=== PATIENT | male | born 1945 | race Caucasian/White ===

== ENCOUNTER → 2023-08-23 07:02 | Outpatient (REF) | payer MEDICARE, OTHER, SELFPAY | LOC: RAD 07:02 | PROVIDERS: ATTENDING PHYSICIAN Internal Medicine Critical Care Medicine; FAMILY PHYSICIAN Family Medicine | DX: Z87.891 Personal history of nicotine dependence (principal) | CPT/HCPCS: 71271 ==

== ENCOUNTER 2024-07-31 21:04 | Inpatient (IN) | payer MEDICARE, OTHER, SELFPAY ==
[2024-07-31] VITALS (8 sets, daily range): BP systolic 92–124; BP diastolic 44–102; BMI 27.5; BMI 26.5
[2024-07-31 17:05] LABS: % Basophils 0.2 % (0-2); % Eosinophils 0.9 % (0-6); % Immature Granulocytes 0.6 % (0-0.5); % Lymphocytes 8.4 % (20.5-51.1); % Monocytes 9.5 % (1.7-9.3); % Neutrophils 80.4 % (42.2-75.2); Absolute Eosinophils 0.1 10^3/uL (0-0.7); Absolute Immature Granulocytes 0.1 10^3/uL (0-0.05); Absolute Lymphocytes 1.1 10^3/uL (1.2-3.4); Absolute Monocytes 1.2 10^3/uL (0.1-0.6); Absolute Neutrophils 10.4 10^3/uL (1.4-6.5); Hematocrit 48.1 % (39.0-52.0); Hemoglobin 16.1 g/dL (13.0-18.0); Mean Corp Hgb Conc. 33.5 g/dL (33.0-37.0); Mean Corpuscular Volume 92.7 fL (80.0-94.0); Mean Platelet Volume 10.3 fL (7.4-10.4); Nucleated Red Blood Cells % 0 % (-); Platelet Count 169 10^3/uL (130-400); Red Blood Cell Count 5.19 10^6/uL (4.70-6.10); Red Cell Dist. Width 13.4 % (11.5-14.5); White Blood Cell Count 12.9 10^3/uL (4.8-10.8)
[2024-07-31 17:17] LABS: INR 1.05; PT 14.2 Sec (11.4-14.6)
[2024-07-31 17:18] LABS: APTT 28.3 Sec (23.4-35.0)
[2024-07-31] MEDS: HEPARIN 25000 UNITS/250 ML IV (17:29)
[2024-07-31] MEDS: HEPARIN 4000 UNITS IV (17:29)
[2024-07-31 18:08] LABS: ALT (SGPT) 21 U/L (0-50); AST (SGOT) 26 U/L (17-59); Albumin 3.8 g/dl (3.5-5.0); Alkaline Phosphatase 148 U/L (38-126); Blood Urea Nitrogen 21 mg/dl (9-20); Calcium 9.3 mg/dl (8.4-10.2); Carbon Dioxide 26 mmol/L (22-30); Chloride 103 mmol/L (98-107); Estimated Creatinine Clearance 81 ml/min; Glucose 156 mg/dl (70-99); Potassium 4.9 mmol/L (3.5-5.1); Sodium 136 mmol/L (135-145); Total Protein 6.7 g/dl (6.3-8.2); eGFR > 60.00
--- NOTE | 2024-07-31 19:16 | ED.GENMED ---
History of Present Illness
General
Chief Complaint: DVT/Possible Blood Clot
Time Seen by Provider: 07/31/24 16:43
History of Present Illness
History of Present Illness:
78-year-old male with history of aortic stenosis, sick sinus syndrome status post pacemaker, hypertension, and hyperlipidemia presents to the emergency department for evaluation of right lower extremity paresthesias and pain. He states 3 days ago
he had acute pain of the popliteal region, this was followed by paresthesias and pallor of the leg. He notes that yesterday he felt the leg was quite cold and his applied a heating pad however he could not feel the heat from the heating pad.
He does note mild aching discomfort when ambulating but no pain at rest. He has had some degree of claudication over the past 6 months. Currently he is at rest in the exam bed with no pain. He reports paresthesias to the right leg and foot from
the mid calf down
Past History
Past History
ED Past Medical History: COPD, NIDDM, SC and Other (PNA, Renal calculus, Anemia, )
ED Past Surgical History: Cardiac (Pacemaker/ Defib), Orthopedic (Right ankle screws and plate) and Other (Pilonidal cyst removal)
Social History
Tobacco: Former smoker
Alcohol: None
Personal:
Living: alone
Employment: Retired
Family History
Family History: CAD
Review of Systems
Review of Systems
Allergies reviewed?: Yes
All Other Systems: ROS reviewed and negative except as documented in HPI and ROS
Phy Exam
Physical Exam
Physical Exam:
GEN: Well appearing, NAD, WDWN
HEENT: Oral mucosa moist, no scleral icterus
Cardiac: Regular rate
Lung: No respiratory distress, no tachypnea
MSK: No gross deformity or injuries. No palpable pulses to the right or left posterior tibialis or dorsalis pedis. There is a faint monophasic dopplerable pulse to the right popliteal region. There is moderate pallor to the right leg but
sensation is intact grossly. Patient has normal range of motion of the right hip, right knee, and right ankle with normal strength to plantar and dorsiflexion
Skin: Good color, no pallor or jaundice, no rashes
Neuro: AO x3, moves all extremities freely
Psych: Calm, cooperative
Course
Orders/Labs/Results
Orders:
Orders
07/31/24 16:43
CT Abd Aorta Angio W/ Run Off Urgent
Comment:
Reason For Exam: R leg pain/paresthesia/pallor
07/31/24 16:57
Complete Blood Count/With Diff Urgent
Comprehensive Metabolic Panel Urgent
PTT Urgent
Prothrombin Time Urgent
07/31/24 17:02
Heparin 4,000 units IV NOW STA
Nursing to Place Non Medication Order As Directed
Physician Order: PTT 6 hours after initial start of Heparin infusion
Above order entered?: Yes
07/31/24 17:15
Heparin 63949 Units/250 ml 25,000 units in 250 ml IV PER PROTOCOL
Weight to be used for heparin protocol in kilograms (kg):: 99.8
Protocol:: Vascular Surgery
PTT Goal Range to be used:: PTT 73 to 111 seconds
Order type:: Initial
INITIAL Infusion Dose (UNITS/KG/hr) & then follow protocol:: 18 units/kg/hr
Infusion Dose in UNITS/hr & then follow protocol (UNITS/hr):: 1,800
INFUSION RATE in mL/hr & then follow protocol (mL/hr):: 18
PTT less than or equal to 64 seconds:: Notify Ordering Provider. obtain orders for rate increase &
possible bolus
PTT 64.1 to 72.9 seconds:: Increase rate by 100 units/hr (+ 1 mL/hr)
PTT 73 to 111 seconds:: Target Range. No change in rate.
PTT 111.1 to 130.9 seconds:: Decrease rate by 100 units/hr (- 1 mL/hr)
PTT 131 to 199.9 seconds:: HOLD for 1 hour. Then decrease rate by 200 units/hr (- 2 mL/hr)
PTT greater than or equal to 200 seconds:: STOP INFUSION. Notify Ordering provider to obtain further orders.
Lab follow-up:: Each change, PTT q6h until 2 consecutive are therapeutic. Then PTT
daily.
07/31/24 19:18
Electrocardiogram (*1) Urgent
Reason for Study: QTc Monitoring
EKG- Treatment ONCE
07/31/24 20:17
Piperacillin/Tazo 3.375 Gram [Zosyn] 3.375 gram in 50 ml IV NOW
07/31/24 20:20
Admit/Transfer Patient As Directed
Co-Sign Provider:
Level of Care: Inpatient admission
Assign to:: Telemetry
Physician / Group: Timothy Wilson
Diagnosis: thrombosed right popliteal artery aneurysm
Reason for Telemetry: Arrhythmia
Date to Stop Telemetry: 08/03/24
Time to Stop Telemetry: 11:00
Reason for Hospitalization: thrombosed right popliteal artery aneurysm
Expected length of stay greater than two midnights?: Yes
ELOS- Estimated Length of Stay in days: 3
I certify the patient meets the requirements for IP care: Yes
PRN Pain Medication Management As Directed
May give lesser potent ordered pain med per pt: Yes
preference::
Protocol:: Medication orders for pain may be administered in a
manner that supports deferring to patient preference
when the pt is:
- Requesting an ordered lesser potent pain medication.
Least to most potent pain medications are defined
as: acetaminophen < NSAID < tramadol < opioids
(morphine, oxycodone, hydromorphone).
- Requesting a lesser dose of the same medication IF
ORDERED.
- Requesting a less intrusive route of administration
if both routes are prescribed by the provider (PO <
IV).
07/31/24 20:24
Code Status As Directed
Resuscitation Status: Full Code
07/31/24 21:33
Acetaminophen [Tylenol] 650 mg PO Q4HPRN PRN
Albuterol [ProAIR HFA INHALER] 1 puff INH R Q4HPRN PRN
Dextrose 50%-Water [Dextrose 50% Syringe] 12.5 grams IV [id number] PRN
Glucagon [GlucaGen] 1 mg IM PRN PRN
07/31/24 21:33
Vascular Surgery Consult Routine
Consulting Provider: Shey Lacey
Was physician already notified: Yes
Activity As Directed
Activity Level: With Assistance
Bedside Glucose Monitoring As Directed
Frequency: AC&HS
Additional Instructions:: Change to q6h if pt on TPN, tube feeding or not eating
Vascular Checks As Directed
Location: RLE
Frequency: q1h
Vital Signs As Directed
Frequency: Per unit guidelines
Weight As Directed
Frequency: Daily
07/31/24 22:00
Lisinopril [Zestril] 2.5 mg PO HS
Piperacillin/Tazo 3.375 Gram [Zosyn] 3.375 gram in 50 ml IV Q6H
08/01/24 Breakfast
NPO
Allow oral meds: Yes
Allow clear liquids: No
Basic Metabolic Panel IN AM
Complete Blood Count/No Diff IN AM
Glycohemoglobin (HgbA1c) IN AM
08/01/24 07:30
Insulin Aspart Corrective Low [Novolog Flexpen-Low Resistance] See Protocol SC AC
08/01/24 08:00
Aspirin Low Dose EC [Aspir Low (Enteric Coated)] 81 mg PO DAILY
Atorvastatin [Lipitor] 40 mg PO DAILY
Metoprolol Xl [Toprol Xl] 12.5 mg PO BID
Multivitamin [Theragran] 1 tablet PO DAILY
Ranolazine Extended Release [Ranexa Extended Release] 500 mg PO BID
Spironolactone [Aldactone] 25 mg PO DAILY
ascorbic acid (vitamin C) [Vitamin C] 1,000 mg PO DAILY
08/01/24 20:20
Furosemide [Lasix] 20 mg PO MOWEFR
08/03/24 11:00
DC Protocol for Telemetry ONCE
Abnormal Lab Results
07/31/24
16:57
WBC 12.9 H 10^3/uL
(4.8-10.8)
Abs Immat Gran (auto) 0.1 H 10^3/uL
(0-0.05)
Absolute Neuts (auto) 10.4 H 10^3/uL
(1.4-6.5)
Absolute Lymphs (auto) 1.1 L 10^3/uL
(1.2-3.4)
Absolute Monos (auto) 1.2 H 10^3/uL
(0.1-0.6)
Immature Gran % 0.6 H %
(0-0.5)
Neutrophils % 80.4 H %
(42.2-75.2)
Lymphocytes % 8.4 L %
(20.5-51.1)
Monocytes % 9.5 H %
(1.7-9.3)
BUN 21 H mg/dl
(9-20)
Glucose 156 H mg/dl
(70-99)
Alkaline Phosphatase 148 H U/L
(38-126)
07/31/24 16:57
07/31/24 16:57
Vital Signs
Initial and Last Documented VS:
Initial Vital Signs
Temp Pulse Resp BP Pulse Ox
98.9 F 80 20 103/82 96
07/31/24 16:19 07/31/24 16:19 07/31/24 16:19 07/31/24 16:19 07/31/24 16:19
Last Documented Vital Signs
Temp Pulse Resp BP Pulse Ox
98.9 F 86 18 92/63 93
07/31/24 16:19 07/31/24 21:15 07/31/24 21:15 07/31/24 21:00 07/31/24 21:15
MDM/Problems Addressed
MDM/Problems Addressed:
Imaging reveals a right SFA occlusion, upon review with vascular surgery suspect an acutely thrombosed popliteal artery aneurysm. Patient was initiated on heparin on arrival to the ED, will be admitted for further management
*Critical Care Note
Total Time (30-74mins, 75-104mins- exclusive of procedures): Not Applicable
ED Attending Note
-
Portions of this chart may have been created with voice recognition software.� Occasional wrong word or��sound alike� substitutions may have occurred due to the inherent limitations of voice recognition software.
Discharge Plan
Departure
Patient Disposition: Admit
Date of Disposition: 07/31/24
Time of Disposition: 19:22
Admit to: Med/Surg
Presentation/result/management discussed w/ accepting MD/DO: Hospitalist
Discharge Problem:
Aneurysm of popliteal artery, Critical limb ischemia of right lower extremity
Interventions
Interventions:
*Risk Screen - Suicide Last Done: 07/31/24 16:19
*General Assessment Last Done: 07/31/24 16:54
*Neglect/Abuse Screening Last Done: 07/31/24 16:54
*ED- Fall Risk Assessment Last Done: 07/31/24 16:54
*ED COVID-19 Vaccine History Last Done: 07/31/24 16:54
*Nursing Disposition Last Done: 07/31/24 21:20
ED- Cardiac Assessment Last Done: 07/31/24 16:55
ED- Pulmonary Assessment Last Done: 07/31/24 16:55
ED-Peripheral Vascular Assessment Last Done: 07/31/24 16:55
ED-Skin Assessment Last Done: 07/31/24 16:55
Discharge Date and Time
Discharge Date/Time: 07/31/24 21:20
--- NOTE | 2024-07-31 19:23 | HPS.HSE ---
Addendum entered and electronically signed by Timothy Wilson DO 07/31/24 21:39:
Patient seen and examined independently. Agree with findings and plan as set forth by DIANA Cristobal.
Patient is a 78y M with PMH significant for hypertension, ASCVD and CHFrEF who presents to ED complaining of R calf pain and R foot 'coolness'. Patient states that his symptoms started with aq calf cramp while sleeping 2 evenings ago. He has
since noted discomfort in the R calf with walking / dorsiflexion and plantarflexion of the ankle. Yesterday he noted that his toes were cold and somewhat discolored. He placed a heating pad on the foot and noted that he could not appreciate the
warmth. He was seen today by his PCP for evaluation and was referred to the ED.
Ass:
RLE Limb Ischemia
Distal R SFA Occlusion
Right Popliteal Artery Aneurysm
Possible Acute Diverticulitis
ASCVD
Chronic HFrEF
Aortic Stenosis s/p TAVR
History of NSVT
DM-II
Plan:
Admit for further evaluation and treatment.
IV heparin overnight and follow for pain, changes in neurovascular exam, etc.
Continue usual CV medications including ASA, statin, etc.
Vascular Surgery evaluation for additional recommendations.
Note: Patient reports that there was difficulty with femoral access during his prior TAVR (09/2022) requiring upper extremity access instead.
Follow glucose and cover with SSI as needed.
Continue IV Zosyn for now given CT findings for diverticulitis. Patient does report tenderness with exam and has mild leukocytosis.
Follow for changes in symptoms, fever, etc.
Original Note:
Family Physician
-
Family Physician: Julio Owens
Chief Complaint
-
right lower extremity pain
History of Present Illness
Patient is a 78-year-old male with past medical history significant for essential hypertension, hyperlipidemia, CAD, HFrEF, NIDDM, PAD and Hx nonsustained ventricular tachycardia who presented to [facility] ED for evaluation of right lower
extremity pain. Patient reports that over the past two days he has had discomfort in the right lower extremity. Patient reports two nights ago he was woken with a 'cramp' to the right calf and since then he has noticed pain with ambulation and mild
discomfort when at rest. Yesterday he stated he noticed the toes were quite cold when compared to the left, his attempted to help warm them with heating pad but patient was unable to feel the warmth. Patient ultimately made an appointment with
primary care today and upon the assessment there was referred to the ED for evaluation. Patient denies any recent fevers, chills, shortness of breath, nausea, vomiting, constipation, diarrhea or urinary symptoms.
Medical History
Past Medical History
Past Medical History: Reports Other
Additional Past Medical History:
essential hypertension
hyperlipidemia
CAD
HFrEF
NIDDM
PAD
aortic stenosis
Hx nonsustained ventricular tachycardia
Past Surgical History: Reports Other
Additional Past Surgical History:
Right L3-4 ILESI 05/23/18
Ankle 1986
Skin CA removed from L side of Face 2017
L Upper Chest PPM/AICD for IVCD
b/l cataracts removed
Social History
Tobacco: Smoker (patient smokes 2 packs a day for 60years and now smoking 0.25 pack per day)
Alcohol: None
Drug: None
Employment: Retired
Family History
Family History: Other (Father: PAD; Mother: CVA; Brothers: CAD)
Allergies / Home Medications
Allergies reflects when Allergies were last updated in [employer].
Home Medications with original date entered in [employer]
Allergy/Medication List:
Allergies
Allergy/AdvReac Type Severity Reaction Status Date / Time
No Known Drug Allergies Allergy NKDA Verified 07/31/24 16:19
Home Medications
aspirin 81 mg tablet,delayed release 81 mg PO DAILY Blood clot prevention/tx 09/23/21
ranolazine 500 mg tablet,extended release,12 hr 500 mg PO BID Arrhythmia #120 tabs 09/23/21
ascorbic acid (vitamin C) 1,000 mg tablet (Vitamin C) 1,000 mg PO DAILY Supplement 08/15/22
furosemide 20 mg tablet 20 mg PO MOWEFR Fluid retention/Swelling 08/15/22
spironolactone 25 mg tablet 25 mg PO DAILY Fluid retention/Swelling 08/15/22
albuterol sulfate 90 mcg/actuation aerosol inhaler 1 puff inhalation R Q4HPRN PRN shortness of breath or wheezing 07/31/24
atorvastatin 40 mg tablet 40 mg PO DAILY High cholesterol 07/31/24
empagliflozin 25 mg tablet (Jardiance) 25 mg PO DAILY 07/31/24
lisinopril 2.5 mg tablet 2.5 mg PO HS 07/31/24
metoprolol succinate 25 mg tablet,extended release 24 hr 12.5 mg PO BID 07/31/24
therapeutic multivitamin 1 tab PO DAILY 07/31/24
Review of Systems
-
History Source: Patient
Constitutional: Reports No Symptoms
EENT: Reports No Symptoms
Respiratory: Reports No Symptoms
Cardiac: Reports No Symptoms
Abdomen/GI: Reports No Symptoms
: Reports No Symptoms
Musculoskeletal: Reports Other (RLE pain with ambulation, cool to touch, discoloration )
Skin: Reports No Symptoms
Neurological: Reports No Symptoms
Endocrine: Reports No Symptoms
Hematologic/Lymphatic: Reports No Symptoms
Psych: Reports No Symptoms
Physical Exam
Vital Signs
Vital Signs
Temp Pulse Resp BP Pulse Ox
98.9 F 82 16 124/102 96
07/31/24 16:19 07/31/24 16:45 07/31/24 16:45 07/31/24 16:44 07/31/24 16:55
Physical Exam
General: Well Developed, Well Nourished, No Apparent Distress, Comfortable and Conversant
HEENT: NormoCephalic, Moist mucous membranes, Atraumatic, [place] Conjunctivae, Nose Appears Normal and Ears Appear Normal
Respiratory: Clear and Non Labored Respirations
Cardiac: S1/S2 and Regular Rhythm; No Murmur, Rub or Gallop
Breast: Deferred by me
GI: Soft, Non Tender, Non Distended and Normal Bowel Sounds; No Organomegaly
Rectal: Deferred by Provider
Genito-urinary: Deferred by me
Musculoskeletal: No Clubbing, No Cyanosis and No Edema
Skin: Other (RLE cyanosis and cool to touch, pedal pulse non-palpable found on doppler by ED staff ); No Rash
Neuro: Awake, Alert, AO x 3 and Nonfocal/grossly intact
Psych: Calm and Intact Judgment/Insight
Laboratory Results
-
07/31/24 16:57
07/31/24 16:57
Laboratory Results
PT 14.2 Sec (11.4-14.6) 07/31/24 16:57
INR 1.05 07/31/24 16:57
APTT 28.3 Sec (23.4-35.0) 07/31/24 16:57
Total Bilirubin 1.0 mg/dl (0.2-1.3) 07/31/24 16:57
AST 26 U/L (17-59) 07/31/24 16:57
ALT 21 U/L (0-50) 07/31/24 16:57
Alkaline Phosphatase 148 U/L (38-126) H 07/31/24 16:57
Data Reviewed
-
CT Scan: Report Reviewed by me (Abd CT: There is significant diffuse atherosclerotic disease with calcification. There is occlusion of the distal right SFA. On delayed images, minimal contrast opacification within the lumen of the right popliteal
artery. There does appear to be three-vessel runoff within the right calf, somewhat )
Lab Data: Labs Reviewed by me
Impression/Plan
-
IMPRESSION/PLAN:
#thrombosed right popliteal artery aneurysm
#PAD
ABD CT: There is significant diffuse atherosclerotic disease with calcification.
There is occlusion of the distal right SFA. On delayed images, minimal contrast opacification within the lumen of the right popliteal artery. There does appear to be three-vessel runoff within the right calf, somewhat
limited evaluation because of severe calcification.
No evidence for occlusion of the left arterial circulation.
Aneurysm of the right popliteal artery. Aneurysm of the left distal SFA.
In the right pelvis, CT findings highly suggestive of diverticulitis involving the sigmoid colon. No evidence of abscess or free intraperitoneal air.
- admit to telemetry
- Consult Vascular
- Heparin gtt
#diverticulitis
- IV Zosyn
#essential hypertension
- continue furosemide, lisinopril, metoprolol and spironolactone
#hyperlipidemia
#CAD
- continue aspirin and atorvastatin
#HFrEF
ECHO (10/31/2022): Moderately reduced left ventricular systolic function.
Estimated left ventricular ejection fraction is 30-35% .
Normal right ventricular size and function.ICD wire seen in right ventricle. 29 mm Nataly 3 TAVR. Trace AI; Mean gradient 8mmHg.
Ascending aorta not well visualized.
Compared to the previous echo 09/29/22 prior TAVR mean gradient was 10mmHg;
Overall, there is no significant change.
- daily weights
- continue furosemide and spironolactone
#NIDDM
- hold Jardiance
- AccuCheck AC & HS
- SSI
- check A1C
#Hx nonsustained ventricular tachycardia
s/p AICD
Code status: full code
DVT prophylaxis: heparin gtt
[2024-07-31] MEDS: ZOSYN 50 IV (20:22)
[2024-07-31 22:08] LABS: Glucose - Point of Care 251 mg/dl (70-99)
--- NOTE | 2024-07-31 22:23 | PTCARENOTE ---
Pt arrived onto floor @2223. Pt AAOx3 and able to ambulate into room with minimal assistance. Pt with no complaints of pain or SOB at this time. Pt oriented to room and call russ; will continue to monitor
[2024-07-31] MEDS: ZESTRIL PO (22:43)
[2024-08-01] VITALS (11 sets, daily range): BP systolic 98–115; BP diastolic 51–70; BMI 26.5
[2024-08-01] MEDS: ZOSYN 50 IV ×4 (01:46→19:54)
[2024-08-01 05:20] LABS: Glucose - Point of Care 126 mg/dl (70-99)
[2024-08-01 07:07] LABS: Hematocrit 42.8 % (39.0-52.0); Hemoglobin 14.7 g/dL (13.0-18.0); Mean Corp Hgb Conc. 34.3 g/dL (33.0-37.0); Mean Corpuscular Hgb 31.5 pg (27.0-31.0); Mean Corpuscular Volume 91.6 fL (80.0-94.0); Mean Platelet Volume 11.1 fL (7.4-10.4); Platelet Count 144 10^3/uL (130-400); Red Blood Cell Count 4.67 10^6/uL (4.70-6.10); Red Cell Dist. Width 13.2 % (11.5-14.5); White Blood Cell Count 8.2 10^3/uL (4.8-10.8)
[2024-08-01 07:43] LABS: APTT 174.7 Sec (23.4-35.0)
[2024-08-01 08:16] LABS: Glucose - Point of Care 140 mg/dl (70-99)
[2024-08-01] MEDS: RANEXA EXTENDED RELEASE 500 MG PO ×2 (08:38→19:57)
[2024-08-01] MEDS: TOPROL XL 12.5 MG PO ×2 (08:39→19:54)
[2024-08-01] MEDS: ASPIR LOW (ENTERIC COATED) 81 MG PO (08:40)
[2024-08-01] MEDS: LIPITOR 40 MG PO (08:40)
[2024-08-01] MEDS: VITAMIN C 1000 MG PO (08:41)
[2024-08-01] MEDS: THERAGRAN 1 TABLET PO (08:41)
[2024-08-01] MEDS: ALDACTONE 25 MG PO (08:41)
[2024-08-01] MEDS: HEPARIN 25000 UNITS/250 ML IV (09:00)
[2024-08-01 10:06] LABS: Blood Urea Nitrogen 18 mg/dl (9-20); Calcium 8.8 mg/dl (8.4-10.2); Carbon Dioxide 24 mmol/L (22-30); Chloride 105 mmol/L (98-107); Estimated Creatinine Clearance 91 ml/min; Glucose 146 mg/dl (70-99); Potassium 4.6 mmol/L (3.5-5.1); Sodium 135 mmol/L (135-145); eGFR > 60.00
[2024-08-01 10:09] LABS: Glycohemoglobin (HgbA1c) 7.4 % (4.0-5.6)
--- NOTE | 2024-08-01 11:46 | W.PN.HOSP.TC ---
Today's Communication/Plan
-
Await vascular surgery input
Assessment / Plan
Assessment / Plan
Gen-AAOx3, NAD
HEENT-NC, AT, anicteric, clear oral mm
Neck-supple
CV-reg, no M, +S1/S2
Lungs-clear B/L
Abd-soft, NT, ND
Ext-no edema
Musculoskeletal-no cyanosis, clubbing
Skin-warm and dry, cold right foot with diminished pulses
Neuro-grossly non-focal
Psych-calm, cooperative
Acute right lower extremity ischemia -due to distal right SFA occlusion noted on CTA. Associated right popliteal artery aneurysm, aneurysm of the left distal SFA. N.p.o., awaiting vascular surgery input. Continue IV heparin.
Acute sigmoid diverticulitis -did not come into the hospital complaining of abdominal pain but does have tenderness to palpation and CT findings noted. Continue IV antibiotics.
Chronic heart failure reduced EF�stable.
Aortic stenosis -status post TAVR.
Tobacco dependence -highly recommend abstinence. Discussed with patient and .
History of NSVT
DM2 without hyperglycemia -hemoglobin A1c 7.4%. Uses Jardiance at home. Currently on insulin sliding scale.
COPD without exacerbation
CAD
Hyperlipidemia -Lipitor.
Full code
Updated at the bedside.
Anticipated Discharge: > 48 hours
Subjective/Interval History
-
Date of Service: August 01, 2024
Patient seen and examined. No rest pain in the right foot but does get pain with ambulation.
Objective Data
-
Labs:
Laboratory Results
07/31/24 08/01/24 08/01/24
23:58 00:15 06:55
WBC 8.2
Hgb 14.7
Hct 42.8
Plt Count 144
APTT Cancelled 103.0 H 174.7 H*
Sodium Cancelled
Potassium Cancelled
Chloride Cancelled
Carbon Dioxide Cancelled
BUN Cancelled
Creatinine Cancelled
Glucose Cancelled
Calcium Cancelled
08/01/24 08/01/24
08:06 14:45
WBC
Hgb
Hct
Plt Count
APTT Pending
Sodium 135
Potassium 4.6
Chloride 105
Carbon Dioxide 24
BUN 18
Creatinine 0.8
Glucose 146 H
Calcium 8.8
Vital Signs:
Vital Signs
Temp Pulse Resp BP Pulse Ox
98.0 F 79 20 107/64 100
08/01/24 08:25 08/01/24 08:25 08/01/24 08:25 08/01/24 08:25 08/01/24 08:25
I&O
07/31/24 08/01/24 08/02/24
06:59 06:59 06:59
Intake Total 0 / 0
Balance 0 / 0
Review of Systems
-
History Source: Patient
All other systems: Reviewed and negative
[2024-08-01 12:16] LABS: Glucose - Point of Care 124 mg/dl (70-99)
--- NOTE | 2024-08-01 12:59 | CON.VAS ---
Addendum entered and electronically signed by Phong Ovalle III, MD 08/01/24 18:25:
Late entry
This patient was seen and examined in collaboration with DIANA Ng. I agree with the history and physical exam as well as the assessment and plan. I have the following additions:
Symptom onset to the right leg and foot on sunday
No pain currently
Gross neuro motor function to the right foot and toes intact
Calf compartment soft throughout
No Doppler signals in the right foot
Vascular lab imaging reviewed personally
CT angiogram imaging reviewed personally
He has a thrombosed popliteal artery aneurysm
On CTA there is faint reconstitution of the peroneal artery and I cannot visualize the posterior tibial artery or anterior tibial artery
My recommendation is for arteriogram today of the right lower extremity with possible initiation of thrombolysis
Ultimately he will require a lower extremity bypass for revascularization
The technical aspects of the arteriogram and possible thrombolysis were discussed with the patient and his (bedside) in detail. The benefits and rationale for this approach were discussed with both of them in detail. Operative risks were
discussed with them in detail including but not limited to bleeding, , intracranial bleeding, arterial access site injury, infection, contrast nephropathy, distal embolization and limb loss. He also understands the need for additional
procedures.
He reports no recent surgery
Denies a history of stroke
Denies GI bleeding upper or lower
Denies easy bleeding or bruising
Denies recent trauma and/or falls
Signed:
Phong Ovalle III, MD
[facility]
[phone] (ccoh)
Original Note:
Consultation
Consultation Request
Date/Time Consultation Performed: 08/01/2024
Requesting Provider: Hospitalist
Performing Provider: Brinda Daniels, FILM LIBRARY CLERK-C for Phong Ovalle III, MD
Reason for Consultation: Right popliteal artery aneurysm occlusion
Medical History
-
Chief Complaint: Right lower extremity pain and coolness
History of Present Illness:
This is a 70-year-old male with known past medical history of CAD, diabetes, Hyperlipidemia, HFrEF, peripheral arterial disease, aortic stenosis status post TAVR, and nonsustained V. tach who presented to [facility] on 07/31/24 with reports
of acute onset of right lower extremity calf and foot pain on that has progressively worsened since onset. Patient denies past medical history of claudication or rest pain. He states prior to Sunday he was able to walk any distance without pain
to bilateral lower extremities. He notes since onset of right lower extremity calf pain, right foot pain and digit discoloration has progressed and he only finds relief with manipulation or foot pumping of his calf. Denies prior history of seeing
a vascular surgeon or vascular interventions. Patient has no other complaints and denies fever, chills, shortness of breath, nausea, vomiting, and diarrhea. He does endorse that he was told in the past that he has peripheral arterial disease
because they were unable to use his legs as an access site for his TAVR procedure.
Past Medical History
Past Medical History: CAD, NIDDM and Other (Hyperlipidemia, HFrEF, peripheral arterial disease, aortic stenosis status post TAVR, nonsustained V. tach)
Past Surgical History: Cardiac (L Upper Chest PPM/AICD for IVCD, TAVR) and Other (Right L3-4 ILESI, Skin CA removed from L side of Face, bilateral cataracts)
Social History
Tobacco: Smoker (patient smokes 2 packs a day for 60years and now smoking 0.25 pack per day)
Alcohol: None
Drug: None
Employment: Retired
Family History
Family History: Other (Father: PAD; Mother: CVA; Brothers: CAD)
Allergies / Home Medications
Allergy/AdvReac Type Severity Reaction Status Date / Time
No Known Drug Allergies Allergy NKDA Verified 07/31/24 16:19
�Medication �Instructions �Recorded �Confirmed �Type
aspirin 81 mg tablet,delayed 81 mg PO DAILY Blood clot 09/23/21 07/31/24 Rx
release prevention/tx
ranolazine 500 mg tablet,extended 500 mg PO BID Arrhythmia #120 tabs 09/23/21 07/31/24 Rx
release,12 hr
ascorbic acid (vitamin C) 1,000 mg 1,000 mg PO DAILY Supplement 08/15/22 07/31/24 History
tablet (Vitamin C)
furosemide 20 mg tablet 20 mg PO MOWEFR Fluid 08/15/22 07/31/24 History
retention/Swelling
spironolactone 25 mg tablet 25 mg PO DAILY Fluid 08/15/22 07/31/24 History
retention/Swelling
albuterol sulfate 90 mcg/actuation 1 puff inhalation R Q4HPRN PRN 07/31/24 07/31/24 History
aerosol inhaler shortness of breath or wheezing
atorvastatin 40 mg tablet 40 mg PO DAILY High cholesterol 07/31/24 07/31/24 History
empagliflozin 25 mg tablet 25 mg PO DAILY 07/31/24 07/31/24 History
(Jardiance)
lisinopril 2.5 mg tablet 2.5 mg PO HS 07/31/24 07/31/24 History
metoprolol succinate 25 mg 12.5 mg PO BID 07/31/24 07/31/24 History
tablet,extended release 24 hr
therapeutic multivitamin 1 tab PO DAILY 07/31/24 07/31/24 History
Review of Systems
-
History Source: Patient
Constitutional: Reports No Symptoms
EENT: Reports No Symptoms
Respiratory: Reports No Symptoms
Cardiac: Reports No Symptoms
Vascular: Denies Leg Pain / Claudication (Has prior history of claudication)
Abdomen/GI: Reports No Symptoms
: Reports No Symptoms
Musculoskeletal: Reports Other (Right lower extremity pain initially with ambulation, but since onset increasing to include rest, left foot cool to touch, left digits with paleness)
Skin: Reports Other (Left foot with paleness)
Neurological: Reports No Symptoms
Endocrine: Reports No Symptoms
Physical Exam
Vital Signs
Temp Pulse Resp BP Pulse Ox
97.7 F 74 18 100/65 95
08/01/24 11:42 08/01/24 11:42 08/01/24 11:42 08/01/24 11:42 08/01/24 11:42
Lab Results
08/01/24 06:55
08/01/24 08:06
Physical Exam
General: No Apparent Distress
HEENT: Normocephalic, Anicteric and Atraumatic
Respiratory: Non Labored Respirations
Cardiac: Negative JVD
GI: Soft, Non Tender and Non Distended
Musculoskeletal: No Edema
Skin: Other (Right lower extremity cool, digits with cap refill at 5 seconds, has full motor function and sensation, unable to get Doppler signal of DP or PT at right foot)
Neuro: AO x 3
Pulses: Bilateral Femoral: +2
Assessment / Plan
-
Assessment: 78-year-old male with right lower extremity SFA occlusion and right popliteal artery aneurysm occlusion, and CT angio evidence of chronic peripheral arterial disease leading to acute VS. chronic right lower extremity limb ischemia
Plan:
Urgent right lower extremity angiogram today with possible placement of lysis catheter, will likely need will right lower extremity arterial bypass early next week, will have definitive surgical plan following results of angiogram.
Continue heparin infusion for anticoagulation
N.p.o.
[2024-08-01 15:20] LABS: APTT 83.6 Sec (23.4-35.0)
--- NOTE | 2024-08-01 15:49 | CM ---
Patient off the floor at label rewinder. Initial assessment completed. Admitted for right lower extremity pain. Patient is a 78-year-old male with past medical history significant for essential hypertension, hyperlipidemia, CAD, HFrEF, NIDDM, PAD and Hx
nonsustained ventricular tachycardia.
CM spoke to patient's significant other, Sandra, who stated patient has been staying at her home recently because she has a single story home set up- 1 step to enter. Patient's primary home is a split level home- 5 steps to enter. Patient is
independent w/ ambulating and ADLs, no DME required. Sandra's home has a tub grab bar and shower chair. Patient has no SNF/VN/PT hx/ Patient engaged in cardiac rehab at in the past.
Address, point of contact and insurance verified
PCP: Lamar Cancino. Patient's prev PCP has retired
Pharmacy: [facility]- [place]
Plan: Anticipate home; no needs
CM will cont to follow for d/c planning
--- NOTE | 2024-08-01 17:00 | W.SUR.PREOP ---
Pre-Operative Surgical Note
-
I have examined this patient prior to the performance of the scheduled procedure.
The patient's condition is unchanged from the time of the current History and
Physical and the patient is able to undergo the scheduled procedure.
[2024-08-01 17:33] LABS: ACT-LR - POC 161 Seconds (116-155)
--- NOTE | 2024-08-01 18:21 | OR.RPT ---
Operative Report
Operative Report
Date of Operation: 08/01/2024
Pre Op Diagnosis:
1. Acute limb ischemia, right lower extremity
2. Thrombosed right popliteal artery aneurysm
Post Op Diagnosis:
1. Acute limb ischemia, right lower extremity
2. Thrombosed right popliteal artery aneurysm
Procedure:
1.) Selective catheterization of third order lower extremity artery
2.) Initiation of arterial thrombolysis (5 [place] by 40 cm [place] Brayden lysis catheter)
3.) Diagnostic aortobiiliac arteriogram
4.) Diagnostic right lower extremity arteriogram
5.) Ultrasound-guided percutaneous access to the left common femoral artery
Surgeon: Phong Ovalle III, MD
Anesthesia: Sedation with local
Fluoroscopy:
24.1 min
254 mGy
66.67 Gy.cm2
Complications: None
Estimated Blood Loss: 20 cc
History and Indications for Procedure: 78-year-old male with acute limb ischemia and imaging demonstrating a thrombosed right popliteal artery aneurysm
Procedure in Detail: Guzman Law was correctly identified and placed supine on the operating table. After adequate induction of anesthesia the bilateral groins were prepped and draped in the usual sterile fashion. A timeout was performed with the
nursing and anesthesia staff confirming the patient's identity as well as the nature and laterality of the procedure.
The left common femoral artery was identified under ultrasound guidance. The artery was patent. The superior and inferior aspects of the femoral head were identified with radiographic guidance and marked at the skin level. The proposed puncture site
was infiltrated with local anesthesia. Under ultrasound guidance we accessed the left common femoral artery with a micropuncture needle and upsized to a 5 Fr sheath over a Bentson wire. The wire and a [employer] hook flush catheter were advanced into
the distal abdominal aorta and a diagnostic aorto-biiliac arteriogram was performed:
AORTO-ILIAC ARTERIOGRAM:
Aorta: Heavily calcified but patent with no significant stenosis identified
Right common iliac artery: Heavily calcified but patent with no significant stenosis identified
Right external iliac artery: Heavily calcified but patent with no significant stenosis identified
Left common iliac artery: Heavily calcified but patent with no significant stenosis identified
Left external iliac artery: Heavily calcified but patent with no significant stenosis identified
Under roadmap guidance using a Glidewire and the SimulScribe hook catheter we selected the right common iliac artery and then the external iliac artery. A catheter was tracked up and over the aortic bifurcation and placed in the distal external iliac
artery. A diagnostic right lower extremity arteriogram was then performed which demonstrated the following:
RIGHT LOWER EXTREMITY:
Common femoral artery: Calcified. Patent. No significant stenosis identified
Profunda femoral artery: Diffusely calcified but patent
Superficial femoral artery: Diffusely calcified. Patent.
Popliteal artery: Occluded above the knee no distal reconstitution identified
Anterior tibial artery: Occluded
Tibioperoneal trunk: Reconstituted via collaterals.
Peroneal artery: Reconstituted via collaterals
Posterior tibial artery: Occluded
Could not clearly see any flow into the foot on the initial arteriogram
ENDOVASCULAR INTERVENTION: Systemic heparin was administered. Exchanged out for a 6 Fr 45 cm sheath over a [employer] wire. Selected the superficial femoral artery under roadmap guidance with 0.035 SPEX catheter and glidewire. The popliteal artery
occlusion was crossed easily, consistent with an acute thrombosis, with the SPEX catheter and Glidewire. The wire and catheter were advanced into the tibioperoneal trunk and subtraction angio confirmed proper position in the true lumen. An
additional arteriogram demonstrated a patent peroneal artery to the ankle. Anterior peroneal artery collaterals then reconstituted the distal anterior tibial artery which continued across the ankle to form the dorsalis pedis artery. Posterior
collaterals coursed to the heel but there was no reconstitution of the posterior tibial artery.
Over the Glidewire I advanced a 5 [place] 40 cm RideApart lysis catheter. The radiopaque markers were positioned in the desired location proximally and distally. 10 mg of tPA was bolused through the catheter. After 10 minutes a contrast
injection was performed which demonstrated some early initial improvement and that the catheter was in the desired location. The catheter was secured in place. The tPA infusion was initiated through the catheter at 1 mg an hour. Heparin drip was
connected to the sideport at 500 units an hour. The catheter was secured in place at the sheath exit site. The catheter and sideport were clearly and individually labeled. The sheath was secured in place at the skin exit site with adhesive
dressings.
Satisfied with this result we concluded the procedure.
The patient tolerated the procedure well and was taken to the recovery area in stable condition.
Attestation: I was present and responsible for the entire procedure.
Signed:
Phong Ovalle III, MD
[facility]
[phone] (jjxr)
--- NOTE | 2024-08-01 18:43 | PTCARENOTE ---
Pt arrived laying flat via bed with OR staff, monitored, with simple mask and left femoral 6fr arterial sheath transduced. Pt is awake and alert. Bed sdie report taken. On handoff verified left femoral 'blue' arterial sheath with Alteplase @1mg/hr
with 0.9nss piggybacked @ 46ml/hr, and Non-titratable Heparin drip @500units/hr via 'clear' arterial sheath. Site with scant bloody drainage at insertion site. Tegaderm dressing intact. No right DP/PT pulses, +DP/PT pulses on the left foot. Right
foot cold, mottled, poor capillary refill. Ovalle catheter with laurence urine in collection bag. Pt was informed of the importance of keeping his legs still, head on the pillow, not shifting his hips and our inability to to tilt the bed or raise his
head up. He stated 'well you better tie me down then'. He was reassured the the night nurse would make sure he was following orders, and keep him comfortable. He is also aware that early tomorrow morning he would be take back to evaluate his clot.
He verbalized his understanding. Safe environment maintained.
[2024-08-01 18:44] LABS: Glucose - Point of Care 105 mg/dl (70-99)
[2024-08-01] MEDS: NSS 1000 INF CATH (18:45)
[2024-08-01] MEDS: HEPARIN 25000 UNITS/250 ML ART SHEATH (18:46)
[2024-08-01] MEDS: CATHFLO/ACTIVASE 16 ML INF CATH ×2 (18:48→22:07)
[2024-08-01] MEDS: CATHFLO/ACTIVASE 16 MG INF CATH ×2 (18:48→22:07)
[2024-08-01] MEDS: NSS 1000 IV ×2 (19:00→19:48)
[2024-08-01] MEDS: DILAUDID 0.5 MG IV (19:53)
[2024-08-01] MEDS: ZESTRIL 2.5 MG PO (19:54)
--- NOTE | 2024-08-01 20:00 | PTCARENOTE ---
rec`d pt at 1900. pulses done with previous shift RN. rt foot does not have any pulses. rt foot is cold and mottled. pt can move rt foot toes. left foot has +pulses via doppler. left femoral 6fr arterial sheath transduced. handoff verified left
femoral 'blue' arterial sheath with Alteplase @1mg/hr with 0.9nss piggybacked @ 46ml/hr, and Non-titratable Heparin drip @500units/hr via 'clear' arterial sheath. small amount of bloody drainage at puncture site. bedrest and pt educated on laying
flat and keeping legs straight and still. 2L NC since pt dipped to mid 80s as he fell asleep. pain covered by prn meds. pt AAOx3. PIVS flushed and patent. call russ in reach, safe environment maintained. cummings draining laurence urine.
[2024-08-01 21:19] LABS: Hematocrit 41.5 % (39.0-52.0); Hemoglobin 13.9 g/dL (13.0-18.0); Platelet Count 144 10^3/uL (130-400)
[2024-08-01 21:29] LABS: INR 1.31; PT 16.5 Sec (11.4-14.6)
[2024-08-01 21:30] LABS: Fibrinogen 395 MG/DL (199-459)
[2024-08-01 21:43] LABS: APTT > 200 Sec (23.4-35.0)
[2024-08-01 21:45] LABS: APTT > 200 Sec (23.4-35.0)
[2024-08-01] MEDS: ROXICODONE 5 MG PO (22:11)
[2024-08-01 23:05] LABS: Glucose - Point of Care 107 mg/dl (70-99)
[2024-08-01] MEDS: NOVOLOG FLEXPEN-LOW RESISTANCE SC (23:31)
[2024-08-02] VITALS (36 sets, daily range): BP systolic 76–130; BP diastolic 37–89; BMI 26.7
[2024-08-02] MEDS: DILAUDID 0.5 MG IV ×2 (00:07→04:22)
[2024-08-02] MEDS: TYLENOL 650 MG PO (00:57)
[2024-08-02] MEDS: CATHFLO/ACTIVASE 16 MG INF CATH ×2 (01:39→05:15)
[2024-08-02] MEDS: CATHFLO/ACTIVASE 16 ML INF CATH ×2 (01:39→05:15)
--- NOTE | 2024-08-02 01:51 | PTCARENOTE ---
pt has intermittent pain in rt lower back calf. 'burning sensation'. pt can still move toes. no pulses in the right foot.
[2024-08-02] MEDS: ZOSYN 50 IV ×4 (03:22→21:12)
[2024-08-02 03:37] LABS: Hematocrit 41.4 % (39.0-52.0); Hemoglobin 13.5 g/dL (13.0-18.0); Mean Corp Hgb Conc. 32.6 g/dL (33.0-37.0); Mean Corpuscular Hgb 30.6 pg (27.0-31.0); Mean Corpuscular Volume 93.9 fL (80.0-94.0); Mean Platelet Volume 10.5 fL (7.4-10.4); Platelet Count 138 10^3/uL (130-400); Red Blood Cell Count 4.41 10^6/uL (4.70-6.10); Red Cell Dist. Width 13.2 % (11.5-14.5); White Blood Cell Count 7.4 10^3/uL (4.8-10.8)
[2024-08-02 03:39] LABS: INR 1.21; PT 15.6 Sec (11.4-14.6)
[2024-08-02 03:40] LABS: APTT 38.4 Sec (23.4-35.0); Fibrinogen 413 MG/DL (199-459)
[2024-08-02] MEDS: NSS 250 IV (03:41)
[2024-08-02 03:49] LABS: ALT (SGPT) 17 U/L (0-50); AST (SGOT) 24 U/L (17-59); Alkaline Phosphatase 100 U/L (38-126); Blood Urea Nitrogen 16 mg/dl (9-20); Calcium 8.4 mg/dl (8.4-10.2); Carbon Dioxide 22 mmol/L (22-30); Chloride 105 mmol/L (98-107); Direct Bilirubin 0.2 mg/dl (0.0-0.4); Estimated Creatinine Clearance 104 ml/min; Glucose 114 mg/dl (70-99); Potassium 4.4 mmol/L (3.5-5.1); Sodium 134 mmol/L (135-145); Total Bilirubin 1.2 mg/dl (0.2-1.3); Total Protein 5.4 g/dl (6.3-8.2); eGFR > 60.00
[2024-08-02] MEDS: NOVOLOG FLEXPEN-LOW RESISTANCE SC ×2 (05:57→12:49)
--- NOTE | 2024-08-02 05:57 | PTCARENOTE ---
still no pulses in rt foot. pt can still move his toes on his right foot. pain comes and goes. bedrest and legs are straight.
[2024-08-02 06:08] LABS: Glucose - Point of Care 105 mg/dl (70-99)
--- NOTE | 2024-08-02 07:55 | W.PN.UPDATE ---
Update Note
Progress Note Update
Seen and evaluated pre-procedurally. Patient notes increased pain in right foot. Notes some weakness of the foot as well. Notes it has felt this way since waking from anesthesia (i wasn't informed of any changes overnight).
On exam he is not in any acute distress. His L groin puncture site is flat, mild blood staining. Abd soft. R calf soft, but tender. R foot slightly cool, cyanotic. Cap refill present but slowed. Motor function present, but weak intrinsic foot
muscle function and slightly at ankle. No audible doppler signals.
Plan - urgent return to OR now. Lysis check to assess outflow vessels. Discussed with patient strong possibility for need for urgent bypass at that time IF outflow vessel is reasonable (may require open thrombectomy as well). Discussed procedure,
discussed possible fasciotomies if successful. Discussed risks including but not limited to bleeding/infection/arterial injury/worsened ischemia/limb loss despite all measures. He understands all and wishes to proceed.
--- NOTE | 2024-08-02 08:00 | PTCARENOTE ---
pt taken to procedural area by OR staff. Continues to have no pulse signals with loss off sensation. Drips unchanged. Will hold PO meds as ordered. Zosyn infusing.
--- NOTE | 2024-08-02 09:10 | CON.INTV ---
Consultation
Consultation Request
Date/Time Consultation Requested: 08/01/2024
Date/Time Consultation Performed: 08/02/2024
Requesting Provider: Zen Romo
Performing Provider: Gayla Sosa
Reason for Consultation: Limb oschemia
Medical History
-
Chief Complaint: Limb pain
History of Present Illness:
Very pleasant 70-year-old gentleman with history of hypertension, hyperlipidemia, coronary artery disease, diabetes, severe peripheral vascular disease and nonsustained ventricular tachycardia who presented to the ED for concern of right lower
extremity pain. Patient reportedly noted decreased warmth, cramping in the right calf area and also has some pain at rest. He noted that his extremity was quite cold to touch and heating pad was applied but patient was not able to feel the warmth
of the same. Patient ultimately saw his primary care provider who referred him to emergency room for further evaluation.
Further Workup showed a thrombosed popliteal artery aneurysm. Patient was subsequently taken to the OR and had catheterization of third order lower extremity artery and initiation of intra-arterial thrombolysis. This morning patient was
reevaluated by vascular surgery and noted to have somewhat slowed capillary refill with plan for urgent return to the OR for further intervention.
Past Medical History
Past Medical History: Reports Other
Additional Past Medical History:
essential hypertension
hyperlipidemia
CAD
HFrEF
NIDDM
PAD
aortic stenosis
Hx nonsustained ventricular tachycardia
Past Surgical History: Reports Other
Additional Past Surgical History:
Right L3-4 ILESI 05/23/18
Ankle 1986
Skin CA removed from L side of Face 2017
L Upper Chest PPM/AICD for IVCD
b/l cataracts removed
Social History
Tobacco: Smoker (patient smokes 2 packs a day for 60years and now smoking 0.25 pack per day)
Alcohol: None
Drug: None
Employment: Retired
Family History
Family History: Other (Father: PAD; Mother: CVA; Brothers: CAD)
Allergies / Home Medications
Allergies
Allergy/AdvReac Type Severity Reaction Status Date / Time
No Known Drug Allergies Allergy NKDA Verified 07/31/24 16:19
Home Medications
�Medication �Instructions �Recorded �Confirmed �Last Taken �Type
aspirin 81 mg tablet,delayed 81 mg PO DAILY Blood clot 09/23/21 07/31/24 07/31/24 Rx
release prevention/tx
ranolazine 500 mg tablet,extended 500 mg PO BID Arrhythmia #120 tabs 09/23/21 07/31/24 07/31/24 Rx
release,12 hr
ascorbic acid (vitamin C) 1,000 mg 1,000 mg PO DAILY Supplement 08/15/22 07/31/24 07/31/24 History
tablet (Vitamin C)
furosemide 20 mg tablet 20 mg PO MOWEFR Fluid 08/15/22 07/31/24 07/30/24 History
retention/Swelling
spironolactone 25 mg tablet 25 mg PO DAILY Fluid 08/15/22 07/31/24 07/31/24 History
retention/Swelling
albuterol sulfate 90 mcg/actuation 1 puff inhalation R Q4HPRN PRN 07/31/24 07/31/24 Unknown History
aerosol inhaler shortness of breath or wheezing
atorvastatin 40 mg tablet 40 mg PO DAILY High cholesterol 07/31/24 07/31/24 07/31/24 History
empagliflozin 25 mg tablet 25 mg PO DAILY Diabetes 07/31/24 07/31/24 07/31/24 History
(Jardiance)
lisinopril 2.5 mg tablet 2.5 mg PO HS Blood Pressure 07/31/24 07/31/24 07/30/24 History
metoprolol succinate 25 mg 12.5 mg PO BID Blood Pressure 07/31/24 07/31/24 07/31/24 History
tablet,extended release 24 hr
therapeutic multivitamin 1 tab PO DAILY Supplement 07/31/24 07/31/24 07/31/24 History
Review of Systems
-
Hematologic/Lymphatic: Other (All 14 systems reviewed and negative except as stated above in the history of present illness.)
Vitals / Labs / Diagnostic Testing
Vital Signs
Temp Pulse Resp BP Pulse Ox
97.9 F 72 19 111/64 95
08/02/24 07:37 08/02/24 07:00 08/02/24 07:00 08/02/24 07:00 08/02/24 07:00
Lab Data
08/02/24 03:11
Laboratory Results
08/01/24 08/01/24 08/01/24
14:48 21:04 21:04
PT 16.5 H
INR 1.31
APTT 83.6 H > 200 H* > 200 H*
08/02/24 08/02/24 08/02/24
03:11 03:11 03:11
PT 15.6 H Cancelled
INR 1.21 Cancelled
APTT 38.4 H
08/02/24
03:11
PT
INR
APTT Cancelled
Diagnostic Testing:
Physical Exam
-
HEENT: Normocephalic
Cardiovascular: S1/S2
Respiratory: Clear
GI: Soft and Other (Mild left lower quadrant tenderness, no rebound or rigidity or guarding)
Neurology: Awake and Alert
Skin: Warm
General: Comfortable
Assessment
-
78-year-old gentleman presented to emergency room with critical limb ischemia and was started on intra-arterial thrombolytic therapy 08/01, next morning morning noted to have decreased capillary refill with plan for return to OR on 08/02
Patient is s/p lower extremity arteriogram with balloon angioplasty of right [id number] popliteal artery and right below the knee popliteal artery by vascular surgery service, POD #0
Continue observation following procedure
Follow neurovascular checks per protocol
ASA, Lipitor and heparin
Follow BP monitoring and parameters as set by primary team
Monitor on telemetry
Pain control per protocol
RASS goal 0
Encouraged IS
Diet advancement per protocol
Aspiration precautions
GI prophylaxis if indicated for stress ulcer prevention in the critically ill
Creat at baseline, follow UO
Critical I/Os
Void trials
Replete electrolytes as needed
No signs/symptoms suspicious for infectious etiology at this time
Will observe off antibiotics for now
Follow temperatures/CBC
Hb and platelets postoperatively stable
DVT prophylaxis on heparin drip
Encouraged OOB/PT/OT/ambulation once cleared by surgical team
We will follow
Other active medical issues
-Acute diverticulitis, recent diagnosis, on antibiotics
-Known history of heart failure with reduced ejection fraction, currently lying flat in bed in no acute distress
-History of aortic stenosis, s/p TAVR
-Diabetes mellitus, sliding scale insulin
-Coronary artery disease, no chest pain reported, continue aspirin and statins
-Hyperlipidemia
-History of smoking and COPD, PFTs in 2019 suggestive of obstructive airway disease with FEV1/FVC of 46. Positive bronchodilator response-patient reports rare use of albuterol. Patient follows up with Dr. Noel as outpatient. No wheezing on exam
today. As needed albuterol ordered
Critical Care time 45 mins -- The patient is admitted for acute critical illness for the treatment of vital organ failure and/or prevention of further life-threatening conditions. Total care includes time spent in review of history, physical exam,
medications, hemodynamic/ventilator parameters, laboratory data, imaging and discussion with house staff, pharmacy, respiratory therapy, hay farmer, and nursing.
Data:
CT abd/pelvis, 07/2024: There is significant diffuse atherosclerotic disease with calcification.
There is occlusion of the distal right SFA. On delayed images, minimal contrast opacification within the lumen of the right popliteal artery. There does appear to be three-vessel runoff within the right calf, somewhat limited evaluation because of
severe calcification.
No evidence for occlusion of the left arterial circulation.
Aneurysm of the right popliteal artery. Aneurysm of the left distal SFA.
In the right pelvis, CT findings highly suggestive of diverticulitis involving the sigmoid colon. No evidence of abscess or free intraperitoneal air.
[2024-08-02] MEDS: HEPARIN 25000 UNITS/250 ML IV (09:15)
--- NOTE | 2024-08-02 09:28 | OR.RPT ---
Operative Report
Operative Report
PROCEDURE DATE: 08/02/2024
Preoperative diagnosis:
1. Subacute right lower extremity limb ischemia with occlusion of distal SFA and popliteal artery.
2. Right lower extremity popliteal artery aneurysm.
3. Ongoing catheter directed thrombolysis right lower extremity.
Postoperative diagnosis: Same
Procedure:
1. Right lower extremity arteriogram through existing sheath.
2. Balloon angioplasty of right [id number] popliteal artery with 5 mm angioplasty balloon.
3. Balloon angioplasty of right below the knee popliteal artery with 4 mm angioplasty balloon.
4. [place] Perclose percutaneous suture closure left common femoral artery.
5. Supervision and interpretation.
Surgeon: Phong
Quality Consultant: None
Complications: None
Anesthesia: Local, sedation
Fluoroscopy:
4.5 min
27 mGy
6.51 Gy.cm2
Indications for procedure:
Ongoing catheter directed thrombolysis for subacute limb ischemia with occluded popliteal artery aneurysm and distal SFA.
Discussed with patient potential need for urgent surgical bypass and fasciotomies as well. Risk/benefit/alternatives of all interventions discussed. He understood all wished to proceed.
Description of procedure:
Patient was identified, brought to the operating room. Placed on the table in the supine position. After the adequate administration of anesthesia, the patient was prepped and draped in the standard surgical fashion. A standard preoperative
timeout was undertaken and everybody was in agreement with the plan.
The infusion catheter was removed over a Storq wire. (Storq wire was maintained into the peroneal artery). Right lower extremity arteriogram was performed. Demonstrated stable findings compared to the day before angiography in terms of the common
femoral/profunda/SFA. Diffuse severe atherosclerotic plaque with luminal irregularities and areas of mild to moderate stenoses but no severe stenoses noted. In the above-knee popliteal artery there appeared to be a moderate to more severe
stenosis. The popliteal artery/popliteal artery aneurysm had successfully thrombolysed and was patent now. No residual thrombus was noted. The below-knee popliteal artery was noted to have a significant stenosis just proximal to the tibioperoneal
trunk/peroneal artery. The peroneal artery runoff now appear to fill nicely. There are some luminal irregularities in the proximal segment correlating to plaque seen on CT scan. But this did not appear to cause any severe stenosis. Beyond here
the vessel appeared reasonably patent.
At this point, I performed angioplasty of the below the knee popliteal artery with a 4 mm angioplasty balloon. I then performed angioplasty of the above-knee popliteal artery with a 5 mm angioplasty balloon. Completion angiogram now demonstrated
good resolution of both these areas of stenoses. At this point I was satisfied. There is good continuous inline flow through the SFA/popliteal/peroneal artery. Of course, as discussed above, very diseased vessels especially in the
femoral-popliteal segments. In addition, patient had significant small vessel disease with very poor filling into the foot (chronic small vessel disease). However, no further intervention to be rendered at this time. At this point, the sheath was
withdrawn to the left external iliac artery. Left femoral angiogram demonstrated good puncture in the left common femoral artery. There is moderate atherosclerotic disease, and I reviewed CT scan images but felt that at that site was reasonable to
attempt percutaneous suture closure (especially given that patient had received thrombolytic agents, and was going to be maintained on anticoagulation post procedurally). Therefore I used a percutaneous Perclose suture closure to successfully close
the common femoral artery. Manual pressure was gently applied as well. Hemostasis was achieved. The patient tolerated the procedure well. Upon completion he had now a dopplerable signal in the right PT vicinity. In addition he had dopplerable
DP and PT in the left foot. He was transported to recovery room in stable condition. Anticoagulation via heparin drip was reinitiated.
[2024-08-02] MEDS: THERAGRAN 1 TABLET PO (10:59)
[2024-08-02] MEDS: TOPROL XL 12.5 MG PO ×2 (10:59→21:12)
[2024-08-02] MEDS: ASPIR LOW (ENTERIC COATED) 81 MG PO (11:00)
[2024-08-02] MEDS: ALDACTONE 25 MG PO (11:00)
[2024-08-02] MEDS: LIPITOR 40 MG PO (11:00)
[2024-08-02] MEDS: VITAMIN C 1000 MG PO (11:00)
[2024-08-02] MEDS: CATHFLO/ACTIVASE INF CATH ×2 (11:01)
[2024-08-02] MEDS: NSS INF CATH (11:02)
[2024-08-02] MEDS: HEPARIN 25000 UNITS/250 ML ART SHEATH (11:02)
[2024-08-02 12:34] LABS: Glucose - Point of Care 101 mg/dl (70-99)
--- NOTE | 2024-08-02 13:20 | W.PN.HOSP.TC ---
Today's Communication/Plan
-
Continue current care
Assessment / Plan
Assessment / Plan
Gen-AAOx3, NAD
HEENT-NC, AT, anicteric, clear oral mm
Neck-supple
CV-reg, no M, +S1/S2
Lungs-clear B/L
Abd-soft, NT, ND
Ext-no edema
Musculoskeletal-no cyanosis, clubbing
Skin-warm and dry, improved blood flow to right foot
Neuro-grossly non-focal
Psych-calm, cooperative
Acute right lower extremity ischemia -due to distal right SFA occlusion noted on CTA. Associated right popliteal artery aneurysm, aneurysm of the left distal SFA.
Underwent thrombolysis and arteriogram of right lower extremity 08/01.
Back to the OR 08/02 for subacute right lower extremity ischemia, underwent balloon angioplasty of right popliteal artery above and below the knee.
IV heparin per vascular surgery.
Acute sigmoid diverticulitis -did not come into the hospital complaining of abdominal pain but does have tenderness to palpation and CT findings noted. Continue IV antibiotics.
Chronic heart failure reduced EF�stable.
Aortic stenosis -status post TAVR.
Tobacco dependence -highly recommend abstinence. Discussed with patient and .
History of NSVT
DM2 without hyperglycemia -hemoglobin A1c 7.4%. Uses Jardiance at home. Currently on insulin sliding scale. Glucoses are controlled.
COPD without exacerbation
CAD
Hyperlipidemia -Lipitor.
Full code
Updated at the bedside.
Anticipated Discharge: > 48 hours
Subjective/Interval History
-
Date of Service: August 02, 2024
Patient seen and examined. Feeling better, no complaints.
Objective Data
-
Labs:
Laboratory Results
08/02/24 08/02/24 08/02/24
03:11 03:11 03:11
WBC 7.4
Hgb Cancelled 13.5
Hct Cancelled 41.4
Plt Count Cancelled
PT
INR
APTT
Sodium
Potassium
Chloride
Carbon Dioxide
BUN
Creatinine
Glucose
Calcium
Total Bilirubin
AST
ALT
Alkaline Phosphatase
08/02/24 08/02/24 08/02/24
03:11 03:11 03:11
WBC
Hgb
Hct
Plt Count 138
PT 15.6 H Cancelled
INR 1.21 Cancelled
APTT 38.4 H
Sodium
Potassium
Chloride
Carbon Dioxide
BUN
Creatinine
Glucose
Calcium
Total Bilirubin
AST
ALT
Alkaline Phosphatase
08/02/24 08/02/24 08/02/24
03:11 12:00 12:34
WBC Pending
Hgb
Hct
Plt Count Cancelled
PT Cancelled
INR Cancelled
APTT Cancelled Cancelled Pending
Sodium 134 L
Potassium 4.4
Chloride 105
Carbon Dioxide 22
BUN 16
Creatinine 0.7
Glucose 114 H
Calcium 8.4
Total Bilirubin 1.2
AST 24
ALT 17
Alkaline Phosphatase 100
08/02/24
18:00
WBC
Hgb Cancelled
Hct Cancelled
Plt Count Cancelled
PT Cancelled
INR Cancelled
APTT Cancelled
Sodium
Potassium
Chloride
Carbon Dioxide
BUN
Creatinine
Glucose
Calcium
Total Bilirubin
AST
ALT
Alkaline Phosphatase
Vital Signs:
Vital Signs
Temp Pulse Resp BP Pulse Ox
97.5 F 80 19 116/89 95
03/08/25 11:14 08/02/24 11:00 08/02/24 07:00 08/02/24 11:00 08/02/24 11:14
I&O
08/01/24 08/02/24 08/03/24
06:59 06:59 07:59
Intake Total 0 / 0 1735 / 1870 485 / 485
Output Total 1050 / 1050 400 / 400
Balance 0 / 0 685 / 820 85 / 85
Review of Systems
-
History Source: Patient
All other systems: Reviewed and negative
[2024-08-02] MEDS: RANEXA EXTENDED RELEASE 500 MG PO ×2 (14:54→21:12)
--- NOTE | 2024-08-02 15:45 | PTCARENOTE ---
Pt desaturated to 79% while on RA conversing. Expiratory wheeze posteriorly. Tachypneic. He has a intermittently harsh moist non-productive cough. 2 liters nasal cannula applied.
[2024-08-02] MEDS: ProAIR HFA INHALER 1 PUFF INH (15:47)
[2024-08-02 15:50] LABS: Hematocrit 45.2 % (39.0-52.0); Hemoglobin 14.6 g/dL (13.0-18.0); Mean Corp Hgb Conc. 32.3 g/dL (33.0-37.0); Mean Corpuscular Hgb 30.5 pg (27.0-31.0); Mean Corpuscular Volume 94.6 fL (80.0-94.0); Mean Platelet Volume 10.5 fL (7.4-10.4); Platelet Count 143 10^3/uL (130-400); Red Blood Cell Count 4.78 10^6/uL (4.70-6.10); Red Cell Dist. Width 13.1 % (11.5-14.5); White Blood Cell Count 10.6 10^3/uL (4.8-10.8)
[2024-08-02 15:55] LABS: APTT 95.5 Sec (23.4-35.0)
[2024-08-02] MEDS: NOVOLOG FLEXPEN-LOW RESISTANCE 2 UNITS SC (17:31)
[2024-08-02 17:32] LABS: Glucose - Point of Care 220 mg/dl (70-99)
--- NOTE | 2024-08-02 17:57 | PTCARENOTE ---
Dr. Romo notified via TT regarding glucose 220 prior to dinner & that he takes Jardiance 25mg @ home. He was NPO this am for procedure.
--- NOTE | 2024-08-02 18:13 | PTCARENOTE ---
Sensation to his right foot changes locations. Sensation to his right lateral foot has been consistently intact for the last several hours. Sensation to his right plantar and the top of his foot poor as compared to his left foot. Toes on his left
foot cold. Cap refill remains >2seconds.
--- NOTE | 2024-08-02 20:00 | PTCARENOTE ---
Pt Aox3, VSS, NSR with pvcs. 2 lit oxygen. heparin gtt infusing at 15mls. Q1hr Neurovascular checks.
[2024-08-02 21:25] LABS: Glucose - Point of Care 169 mg/dl (70-99)
[2024-08-02 23:15] LABS: APTT 91.1 Sec (23.4-35.0)
[2024-08-03] VITALS (19 sets, daily range): BP systolic 85–116; BP diastolic 50–76; PULSE 82; O2SAT 94; BMI 26.6
[2024-08-03] MEDS: HEPARIN 25000 UNITS/250 ML IV ×2 (01:23→18:29)
[2024-08-03] MEDS: ZOSYN 50 IV ×2 (03:43→08:42)
[2024-08-03 05:47] LABS: Hematocrit 40.1 % (39.0-52.0); Hemoglobin 13.6 g/dL (13.0-18.0); Mean Corp Hgb Conc. 33.9 g/dL (33.0-37.0); Mean Corpuscular Hgb 31.1 pg (27.0-31.0); Mean Corpuscular Volume 91.8 fL (80.0-94.0); Mean Platelet Volume 10.6 fL (7.4-10.4); Platelet Count 133 10^3/uL (130-400); Red Blood Cell Count 4.37 10^6/uL (4.70-6.10); Red Cell Dist. Width 12.9 % (11.5-14.5); White Blood Cell Count 9.1 10^3/uL (4.8-10.8)
[2024-08-03 05:56] LABS: Blood Urea Nitrogen 20 mg/dl (9-20); Calcium 8.5 mg/dl (8.4-10.2); Carbon Dioxide 24 mmol/L (22-30); Chloride 104 mmol/L (98-107); Estimated Creatinine Clearance 81 ml/min; Glucose 146 mg/dl (70-99); Potassium 4.5 mmol/L (3.5-5.1); Sodium 133 mmol/L (135-145); eGFR > 60.00
[2024-08-03 06:04] LABS: PT 16.5 Sec (11.4-14.6)
[2024-08-03 06:06] LABS: APTT 92.8 Sec (23.4-35.0)
--- NOTE | 2024-08-03 07:10 | PTCARENOTE ---
Hand off pulse checks. Doppler signals present with improved capillary refill. Movement improved. Left FA#22g protective catheter with Heparin drip @ 1500unit/hr. Right AC#20g protective catheter flushed and patent, no blood return. Ecchymosis @
insertion site. Left femoral dressing CDI. Lungs CTA, moist non-productive cough. Tolerating 2 liters NC. +BSx4. Good appetite. Ovalle catheter with yellow urine. Secured with stat lock. Pt informed of the plan of care to ambulate, transfer out of
the ICU, removing Ovalle catheter and possible transition to OAC. He verbalized his understanding.
[2024-08-03 08:06] LABS: Glucose - Point of Care 163 mg/dl (70-99)
[2024-08-03] MEDS: NOVOLOG FLEXPEN-LOW RESISTANCE 1 UNITS SC ×2 (08:38→17:21)
[2024-08-03] MEDS: ASPIR LOW (ENTERIC COATED) 81 MG PO (08:41)
--- NOTE | 2024-08-03 08:41 | W.PN.HOSP.TC ---
Today's Communication/Plan
-
Transfer out of ICU if okay with vascular surgery
Assessment / Plan
Assessment / Plan
Gen-AAOx3, NAD
HEENT-NC, AT, anicteric, clear oral mm
Neck-supple
CV-reg, no M, +S1/S2
Lungs-clear B/L
Abd-soft, NT, ND
Ext-no edema
Musculoskeletal-no cyanosis, clubbing
Skin-warm and dry, improved blood flow to right foot
Neuro-grossly non-focal
Psych-calm, cooperative
Acute right lower extremity ischemia -due to distal right SFA occlusion noted on CTA. Associated right popliteal artery aneurysm, aneurysm of the left distal SFA.
Underwent thrombolysis and arteriogram of right lower extremity 08/01.
Back to the OR 08/02 for subacute right lower extremity ischemia, underwent balloon angioplasty of right popliteal artery above and below the knee.
IV heparin per vascular surgery.
Acute sigmoid diverticulitis -did not come into the hospital complaining of abdominal pain but does have tenderness to palpation and CT findings noted. Transition to oral antibiotics.
Chronic heart failure reduced EF�stable.
Aortic stenosis -status post TAVR.
Tobacco dependence -highly recommend abstinence. Discussed with patient and .
History of NSVT
DM2 without hyperglycemia -hemoglobin A1c 7.4%. Uses Jardiance at home. Currently on insulin sliding scale. Glucoses are controlled. Resume Jardiance.
COPD without exacerbation
CAD
Hyperlipidemia -Lipitor.
Full code
Anticipated Discharge: Within 24 hours
Subjective/Interval History
-
Date of Service: August 03, 2024
Patient seen and examined. No complaints.
Objective Data
-
Labs:
Laboratory Results
08/02/24 08/03/24
22:54 05:25
WBC 9.1
Hgb 13.6
Hct 40.1
Plt Count 133
PT 16.5 H
INR 1.30
APTT 91.1 H 92.8 H
Sodium 133 L
Potassium 4.5
Chloride 104
Carbon Dioxide 24
BUN 20
Creatinine 0.9
Glucose 146 H
Calcium 8.5
Vital Signs:
Vital Signs
Temp Pulse Resp BP Pulse Ox
98.5 F 72 18 85/57 95
08/03/24 07:00 08/03/24 06:45 08/03/24 06:45 08/03/24 06:00 08/03/24 06:45
I&O
08/02/24 08/03/24 08/04/24
05:59 06:59 06:59
Intake Total
Output Total
Balance
Review of Systems
-
History Source: Patient
All other systems: Reviewed and negative
[2024-08-03] MEDS: RANEXA EXTENDED RELEASE 500 MG PO ×2 (08:42→20:00)
[2024-08-03] MEDS: TOPROL XL 12.5 MG PO ×2 (08:42→20:00)
[2024-08-03] MEDS: THERAGRAN 1 TABLET PO (08:42)
[2024-08-03] MEDS: ALDACTONE 25 MG PO (08:42)
[2024-08-03] MEDS: LIPITOR 40 MG PO (08:42)
[2024-08-03] MEDS: VITAMIN C 1000 MG PO (08:43)
--- NOTE | 2024-08-03 09:30 | PTCARENOTE ---
Right AC#20g protective catheter infiltrated zosyn. Catheter removed, no fluid was able to be expressed at that time. No pain at the site, small area of swelling. IV team notified. Will apply ice pack or warm cloth for comfort. Pt is aware of the
plan of care.
--- NOTE | 2024-08-03 10:29 | W.PN.INTV ---
Today's Communication / Plan
Recommendations
- Continues to improve, stable for transferring out of ICU
-Lye Peel Operator service will sign off if transferred, please consult as needed
Assessment
-
78-year-old gentleman presented to emergency room with critical limb ischemia and was started on intra-arterial thrombolytic therapy 08/01, next morning morning noted to have decreased capillary refill with plan for return to OR on 08/02
Patient is s/p lower extremity arteriogram with balloon angioplasty of right [id number] popliteal artery and right below the knee popliteal artery by vascular surgery service, POD #1
Continue observation following procedure
Follow neurovascular checks per protocol
ASA, Metoprolol, Lipitor and heparin
Follow BP monitoring and parameters as set by primary team
Monitor on telemetry
Pain control per protocol
RASS goal 0
Encouraged IS
Diet advancement per protocol
Aspiration precautions
GI prophylaxis if indicated for stress ulcer prevention in the critically ill
Creat at baseline, follow UO
Critical I/Os
Void trials
Replete electrolytes as needed
No signs/symptoms suspicious for infectious etiology at this time
Will observe off antibiotics for now
Follow temperatures/CBC
Hb and platelets postoperatively stable
DVT prophylaxis on heparin drip
Encouraged OOB/PT/OT/ambulation once cleared by surgical team
We will follow
Other active medical issues
-Acute diverticulitis, recent diagnosis, on antibiotics, transitioned to Augmentin
-Known history of heart failure with reduced ejection fraction, currently lying flat in bed in no acute distress
-History of aortic stenosis, s/p TAVR
-Diabetes mellitus, sliding scale insulin
-Coronary artery disease, no chest pain reported, continue aspirin and statins
-Hyperlipidemia
-History of smoking and COPD, PFTs in 2019 suggestive of obstructive airway disease with FEV1/FVC of 46. Positive bronchodilator response-patient reports rare use of albuterol. Patient follows up with Dr. Cortez as outpatient. No wheezing on
exam today. As needed albuterol ordered
Critical Care time mins -35- The patient is admitted for acute critical illness for the treatment of vital organ failure and/or prevention of further life-threatening conditions. Total care includes time spent in review of history, physical exam,
medications, hemodynamic/ventilator parameters, laboratory data, imaging and discussion with house staff, pharmacy, respiratory therapy, steward/stewardess deck, and nursing.
Data:
CT abd/pelvis, 07/2024: There is significant diffuse atherosclerotic disease with calcification.
There is occlusion of the distal right SFA. On delayed images, minimal contrast opacification within the lumen of the right popliteal artery. There does appear to be three-vessel runoff within the right calf, somewhat limited evaluation because of
severe calcification.
No evidence for occlusion of the left arterial circulation.
Aneurysm of the right popliteal artery. Aneurysm of the left distal SFA.
In the right pelvis, CT findings highly suggestive of diverticulitis involving the sigmoid colon. No evidence of abscess or free intraperitoneal air.
Subjective Dataa
Subjective Data
Date of Service:
Date of Service: August 03, 2024
Subjective:
Patient comfortably sitting in bed in no acute distress.
Review of Systems
Genitourinary: Other (All 14 systems reviewed and negative except as stated above in the history of present illness.)
Objective Data
Data Reviewed
Vital Signs / I&O / Oxygen:
Vital Signs
Temp Pulse Resp BP Pulse Ox
98.5 F 78 16 100/59 94
08/03/24 07:00 08/03/24 08:45 08/03/24 08:45 08/03/24 08:42 08/03/24 08:45
Intake and Output
08/02/24 08/03/24 08/04/24
05:59 06:59 06:59
Intake Total 285 / 285
Output Total
Balance 285 / 285
SaO2 94
Nasal Cannula flow liters per 2
minute
Physical Exam
General: Comfortable
HEENT: Normocephalic
Cardiovascular: S1-S2
Respiratory: Clear and Non-Labored Respirations
GI: Soft and Non Distended
Neurology: Awake and Alert
Skin: Warm
Labs/Micro/Reports
Lab Data
08/03/24 05:25
08/03/24 05:25
Laboratory Results
08/02/24 08/02/24 08/02/24
12:00 15:22 18:00
PT Cancelled Cancelled
INR Cancelled Cancelled
APTT Cancelled 95.5 H Cancelled
08/02/24 08/03/24
22:54 05:25
PT 16.5 H
INR 1.30
APTT 91.1 H 92.8 H
--- NOTE | 2024-08-03 11:52 | W.PN.VS ---
Today's Communication / Plan
-
See plan below for today 08/03/2024.
Assessment/Plan
-
Status post thrombolysis right lower extremity occluded popliteal and SFA. Angioplasty of popliteal artery as well. Overall doing okay. Continue heparin drip. Discontinue Ovalle. Can transfer to telemetry level. Would still recommend likely
surgical bypass given thrombotic occlusion of the popliteal aneurysm. Peroneal artery distal target vessel. Unfortunately has significant atherosclerotic disease in his more proximal infrainguinal vessels. Tentatively can plan bypass for Sunday.
Will ask cardiology to evaluate for preoperative assessment.
-
Total Time Spent with Patient (in minutes): 10
Subjective Data
-
Date of Service: August 03, 2024
Doing well overall. He is without complaints. Notes that his right foot pain is now resolved post thrombolysis. No other significant complaints.
Objective Data
-
Vital Signs
Temp Pulse Resp BP Pulse Ox
98.5 F 78 16 100/59 94
08/03/24 07:00 08/03/24 08:45 08/03/24 08:45 08/03/24 08:42 08/03/24 08:45
Intake and Output
08/02/24 08/03/24 08/04/24
05:59 06:59 06:59
Intake Total 285 / 285
Output Total
Balance 285 / 285
Intake:
Oral fluids 240 / 240
IV fluids (Total) 45 / 45
HEPARIN 28457 UNITS/250 ML 25,
000 units In 250 ml @ 500 UNITS
/HR 5 mls/hr ART SHEATH .Q24H
[facility]NA Rx#:[id number]
Heparin 45 / 45
Nss 1,000 ml @ 46 mls/hr INF
CATH .[id number] GINNA Rx#:[id number]
Nss 1,000 ml @ 80 mls/hr IV .
[id number] GINNA Rx#:[id number]
alteplase
IV piggybacks
Output:
Urine, Ovalle
Lab Results
08/03/24 05:25
08/03/24 05:25
Calcium 8.5 mg/dl (8.4-10.2) 08/03/24 05:25
Phosphorus 4.0 mg/dl (2.5-4.5) 08/02/24 03:11
Magnesium 2.0 mg/dl (1.6-2.3) 08/02/24 03:11
Total Bilirubin 1.2 mg/dl (0.2-1.3) 08/02/24 03:11
Direct Bilirubin 0.2 mg/dl (0.0-0.4) 08/02/24 03:11
AST 24 U/L (17-59) 08/02/24 03:11
ALT 17 U/L (0-50) 08/02/24 03:11
Alkaline Phosphatase 100 U/L (38-126) 08/02/24 03:11
Total Protein 5.4 g/dl (6.3-8.2) L 08/02/24 03:11
Albumin 3.0 g/dl (3.5-5.0) L 08/02/24 03:11
Physical Exam
-
Afebrile.
Awake and alert.
Abdomen soft.
Left groin flat.
Right calf soft. Compartments all soft.
Feet are both warm.
Dopplerable bilateral pedal signals.
--- NOTE | 2024-08-03 12:00 | PTCARENOTE ---
Daughter at the bedside. Plans to remove Ovalle. He was provided a urinal. He understands that he has 6 hours to urinate then he will be bladder scanned. Right AC infiltrate site non-tender, swelling improved. He did not want an ice pack or warm
compress.
--- NOTE | 2024-08-03 13:07 | SUR.OPER ---
Pt & daughter Magdalene are aware he is being transferred to 2114.
[2024-08-03] MEDS: NOVOLOG FLEXPEN-LOW RESISTANCE SC (13:38)
[2024-08-03] MEDS: FARXIGA 10 MG PO (13:40)
[2024-08-03 14:02] LABS: Glucose - Point of Care 132 mg/dl (70-99)
--- NOTE | 2024-08-03 14:51 | CON.CAR ---
Consultation
Consultation Request
Date/Time Consultation Requested: 08/03/24
Date/Time Consultation Performed: 08/03/24
Requesting Provider: Dr. Darling
Performing Provider: Dr. Villalta
Reason for Consultation: CAD/CHF
Medical History
-
Chief Complaint: PAD
History of Present Illness:
78 year old male (known to Dr. Vargas, his primary Obstetrics Nurse) with CAD ([employer] of mid RCA and OM1; no stents), NSTEMI 08/2021, chronic HFrEF/ICM (EF 30-35%), VT s/p St Dylan ICD, TAVR (09/28/22), NIDDM, COPD with continued cigarette use, and PAD
admitted with leg pain. Patient underwent thrombolysis of right lower extremity occluded popliteal and SFA. Cardiology consulted for preprocedural cardiac evaluation for possible lower extremity bypass surgery. The patient has no active cardiac
symptoms/complaints; he denies chest pain, shortness of breath, or palpitations.
Past Medical History
Past Medical History: Arrhythmias (VT), CAD, CHF (chronic systolic), Hypercholesterolemia, NIDDM, IA (NSTEMI) and Valvular Disease (TAVR)
Past Surgical History: Cardiac (ICD implantation, TAVR) and Other (cataract)
Social History
Tobacco: Smoker
Personal:
Family History
Family History: CAD (brother with IA)
Allergies / Home Medications
Allergy/AdvReac Type Severity Reaction Status Date / Time
No Known Drug Allergies Allergy NKDA Verified 07/31/24 16:19
�Medication �Instructions �Recorded �Confirmed �Type
aspirin 81 mg tablet,delayed 81 mg PO DAILY Blood clot 09/23/21 07/31/24 Rx
release prevention/tx
ranolazine 500 mg tablet,extended 500 mg PO BID Arrhythmia #120 tabs 09/23/21 07/31/24 Rx
release,12 hr
ascorbic acid (vitamin C) 1,000 mg 1,000 mg PO DAILY Supplement 08/15/22 07/31/24 History
tablet (Vitamin C)
furosemide 20 mg tablet 20 mg PO MOWEFR Fluid 08/15/22 07/31/24 History
retention/Swelling
spironolactone 25 mg tablet 25 mg PO DAILY Fluid 08/15/22 07/31/24 History
retention/Swelling
albuterol sulfate 90 mcg/actuation 1 puff inhalation R Q4HPRN PRN 07/31/24 07/31/24 History
aerosol inhaler shortness of breath or wheezing
atorvastatin 40 mg tablet 40 mg PO DAILY High cholesterol 07/31/24 07/31/24 History
empagliflozin 25 mg tablet 25 mg PO DAILY Diabetes 07/31/24 07/31/24 History
(Jardiance)
lisinopril 2.5 mg tablet 2.5 mg PO HS Blood Pressure 07/31/24 07/31/24 History
metoprolol succinate 25 mg 12.5 mg PO BID Blood Pressure 07/31/24 07/31/24 History
tablet,extended release 24 hr
therapeutic multivitamin 1 tab PO DAILY Supplement 07/31/24 07/31/24 History
Review of Systems
-
History Source: Patient
All other systems: Negative unless noted
Physical Exam
Vital Signs
Temp Pulse Resp BP Pulse Ox
98.6 F 78 16 100/59 91
08/03/24 12:00 08/03/24 08:45 08/03/24 08:45 08/03/24 08:42 08/03/24 12:00
Lab Results
08/03/24 05:25
08/03/24 05:25
Physical Exam
General: No Apparent Distress
HEENT: Anicteric
Respiratory: Clear
Cardiac: S1/S2, Regular Rhythm and Peripheral Edema (Trace)
Breast: N/A
Musculoskeletal: Edema (Trace)
Skin: Warm
Neuro: AO x 3
Psych: Calm
Impression / Plan
-
78 year old male (known to Dr. Vargas, his primary Obstetrics Nurse) with CAD ([employer] of mid RCA and OM1; no stents), NSTEMI 08/2021, chronic HFrEF/ICM (EF 30-35%), VT s/p St [employer] ICD, TAVR (09/28/22), NIDDM, COPD with continued cigarette use, and PAD
admitted with leg pain. Patient underwent thrombolysis of right lower extremity occluded popliteal and SFA. Cardiology consulted for preprocedural cardiac evaluation for possible lower extremity bypass surgery. The patient has no active cardiac
symptoms/complaints; he denies chest pain, shortness of breath, or palpitations.
Preoperative cardiac evaluation for lower extremity bypass (PAD):
-Given the patient's extensive cardiac history, including CHF (EF 30-35%), the patient will be at high risk for surgery; nonetheless, the risk is not-prohibitive as the patient would benefit from lower extremity bypass to improve his quality of life.
-The patient appears to be medically optimized and compensated on examination; can proceed with surgery as scheduled.
-Will update echocardiogram tomorrow.
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
-Will follow.
CAD ([employer] of mid RCA and OM1; no stents):
-Patient denies any anginal symptoms.
-Continue aspirin, atorvastatin, metoprolol succinate, ranolazine.
Chronic HFrEF/ICM (EF 30-35%):
-Compensated on examination.
-Continue metoprolol succinate, spironolactone, dapagliflozin:
-Will update echocardiogram tomorrow.
VT s/p [employer] ICD:
-Currently stable.
-Continue metoprolol succinate.
TAVR (09/28/22):
-Clinically stable.
NIDDM:
-Management as per primary team.
COPD with continued cigarette use:
-Patient smokes approximately 1 pack/week of cigarettes.
-Counseled today on the importance of smoking cessation.
Data Reviewed
-
EKG: Tracing Personally Visualized and interpreted (Sinus rhythm at 79 bpm with PACs and nonspecific interventricular conduction delay.)
Medical Tests (Nuc Med, Echo etc): Report Reviewed by me (Transthoracic echocardiogram (10/31/2022): LVEF 30-35%; TAVR, mean gradient 8 mmHg, trace AI.)
Labs: Labs Reviewed by me
--- NOTE | 2024-08-03 15:32 | TRANSFER ---
Transferred to room 5 via W/C. All belongings retained from room. Heparin remains @ 1500u/hr.
[2024-08-03 17:07] LABS: Glucose - Point of Care 184 mg/dl (70-99)
[2024-08-03] MEDS: AUGMENTIN 875 MG/125 MG 1 TABLET PO (20:00)
[2024-08-03 22:17] LABS: Glucose - Point of Care 150 mg/dl (70-99)
[2024-08-04 03:25] VITALS: BP 127/69
[2024-08-04 06:00] VITALS: BMI 26.7
[2024-08-04 07:24] VITALS: BP 127/75
--- NOTE | 2024-08-04 07:32 | W.PN.CD ---
Today's Communication / Plan
-
- Plan for popliteal bypass in AM
Impression / Plan
-
78 year old male (known to Dr. 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
admitted with leg pain. Patient underwent thrombolysis of right lower extremity occluded popliteal and SFA. Cardiology consulted for preprocedural cardiac evaluation for possible lower extremity bypass surgery. The patient has no active cardiac
symptoms/complaints; he denies chest pain, shortness of breath, or palpitations.
Preoperative cardiac evaluation for lower extremity bypass (PAD):
-Severe PAD with right lower ext critical limb ischemia s/p balloon angioplasty 08/02/24
-Given the patient's extensive cardiac history, including CHF (EF 30-35%), the patient will be at high risk for surgery; nonetheless, the risk is not-prohibitive as the patient would benefit from lower extremity bypass to improve his quality of life.
-The patient appears to be medically optimized and compensated on examination; can proceed with surgery as scheduled.
-echocardiogram is pending
-alarm security or surveillance monitor.
-Will continue to follow.
CAD (BIOLOGIST of mid RCA and OM1; no stents):
-Patient denies any anginal symptoms.
-Continue aspirin, atorvastatin, metoprolol succinate, ranolazine.
Chronic HFrEF/ICM (EF 30-35%):
-Compensated on examination.
-Continue metoprolol succinate, spironolactone, dapagliflozin:
VT s/p St Dylan ICD:
-Currently stable.
-Continue metoprolol succinate.
TAVR (09/28/22):
-Clinically stable.
NIDDM:
-Management as per primary team.
COPD with continued cigarette use:
-Patient smokes approximately 1 pack/week of cigarettes.
-Counseled today on the importance of smoking cessation.
Physical Exam
Vital Signs/Labs
Vital Signs
Temp Pulse Resp BP Pulse Ox
98.2 F 75 18 127/69 95
08/04/24 03:25 08/04/24 03:25 08/04/24 03:25 08/04/24 03:25 08/04/24 03:25
08/03/24 08/04/24 08/05/24
06:59 06:59 06:59
Actual Weight 97.023 kg
PT 16.5 Sec (11.4-14.6) H 08/03/24 05:25
INR 1.30 08/03/24 05:25
APTT 92.8 Sec (23.4-35.0) H 08/03/24 05:25
Magnesium 2.0 mg/dl (1.6-2.3) 08/02/24 03:11
Physical Exam
Constitutional: No acute distress and Comfortable
EENT: Anicteric and Moist mucous membranes
Cardiovascular: Rhythm & rate is regular, Pedal edema is absent and JVD pressure is normal
Respiratory: Respiratory effort normal, Lungs clear to auscul. and Wheeze Absent
GI: Soft, Non tender and Normal bowel sounds
Neuro/Psych: Alert, Oriented and AO x 3
Other: Cath Site
Data Reviewed
-
Date of Service: August 04, 2024
Medical Decision Making: Reviewed Test Results, Test Interpretation and Review of Case with other Provider
EKG: Tracing Personally Visualized and interpreted
Echo: Report Reviewed by me
Labs: Labs Reviewed by me
Old Records: Reviewed
[2024-08-04 07:50] LABS: Glucose - Point of Care 137 mg/dl (70-99)
[2024-08-04] MEDS: NOVOLOG FLEXPEN-LOW RESISTANCE SC ×3 (07:52→17:56)
[2024-08-04] MEDS: TOPROL XL 12.5 MG PO ×2 (07:56→20:00)
[2024-08-04] MEDS: AUGMENTIN 875 MG/125 MG 1 TABLET PO ×2 (07:56→20:00)
[2024-08-04] MEDS: FARXIGA 10 MG PO (07:56)
[2024-08-04] MEDS: ALDACTONE 25 MG PO (07:56)
[2024-08-04] MEDS: LIPITOR 40 MG PO (07:56)
[2024-08-04] MEDS: RANEXA EXTENDED RELEASE 500 MG PO ×2 (07:56→20:00)
[2024-08-04] MEDS: THERAGRAN 1 TABLET PO (07:56)
[2024-08-04] MEDS: ASPIR LOW (ENTERIC COATED) 81 MG PO (07:56)
[2024-08-04] MEDS: VITAMIN C 1000 MG PO (07:56)
[2024-08-04 08:38] LABS: APTT 107.2 Sec (23.4-35.0)
[2024-08-04 08:44] LABS: Mean Corp Hgb Conc. 34.1 g/dL (33.0-37.0); Mean Corpuscular Hgb 31.3 pg (27.0-31.0); Mean Corpuscular Volume 91.7 fL (80.0-94.0); Mean Platelet Volume 10.5 fL (7.4-10.4); Platelet Count 140 10^3/uL (130-400); Red Blood Cell Count 4.47 10^6/uL (4.70-6.10); Red Cell Dist. Width 13.1 % (11.5-14.5); White Blood Cell Count 7.7 10^3/uL (4.8-10.8)
[2024-08-04 09:00] LABS: Blood Urea Nitrogen 18 mg/dl (9-20); Calcium 9.1 mg/dl (8.4-10.2); Carbon Dioxide 25 mmol/L (22-30); Chloride 105 mmol/L (98-107); Estimated Creatinine Clearance 91 ml/min; Glucose 133 mg/dl (70-99); Potassium 4.2 mmol/L (3.5-5.1); Sodium 134 mmol/L (135-145); eGFR > 60.00
[2024-08-04] MEDS: HEPARIN 25000 UNITS/250 ML IV (09:26)
--- NOTE | 2024-08-04 09:57 | W.PN.VS ---
Addendum entered and electronically signed by Phong Ovalle III, MD 08/04/24 11:11:
This patient was seen and examined in collaboration with DIANA Ng. I agree with the history and physical exam as well as the assessment and plan. I have the following additions:
Successful thrombolysis intervention for acute limb ischemia/thrombosed popliteal artery aneurysm
Warm right foot this morning with Doppler DP and PT
Vein mapping reviewed once again
I am recommending right lower extremity bypass with popliteal aneurysm exclusion
The technical aspects of this procedure were discussed with him and his in detail. The benefits and rationale for this approach were discussed with both of them in detail. Operative risks were discussed with both of them in detail including
but not limited to bleeding, infection, heart attack, stroke, , leg swelling, wound healing complications, bypass failure, limb ischemia, limb loss and the need for additional procedures. He expressed a clear understanding of our conversation
and agrees to proceed with surgery as detailed above
.
Signed:
Phong Ovalle III, MD
[facility]
[phone] (bldd)
Original Note:
Today's Communication / Plan
-
Patient seen and examined at bedside with Dr. Phong Ovalle III, below plan reviewed with attending.
Assessment/Plan
-
Assessment: 78 year old male status post thrombolysis right lower extremity occluded popliteal and SFA. Angioplasty of popliteal artery as well.
Plan:
Continue heparin drip.
Echo pending for cardiology
Tentatively planned for OR tomorrow for RLE bypass
Subjective Data
-
Date of Service: August 04, 2024
Patient seen and examined at bedside, offers no complaints. Reports tolerating PO diet and resolution of right foot pain.
Objective Data
-
Vital Signs
Temp Pulse Resp BP Pulse Ox
98.1 F 74 17 127/75 93
08/04/24 07:24 03/10/25 07:24 08/04/24 07:24 08/04/24 07:24 08/04/24 07:24
Intake and Output
08/03/24 08/04/24 08/05/24
06:59 06:59 06:59
Intake Total 1500 / 1500
Output Total 3100 / 3100
Balance -1600 / -1600
Intake:
Oral fluids 1320 / 1320
IV fluids (Total) 135 / 135
HEPARIN 40036 UNITS/250 ML 25,
000 units In 250 ml @ 500 UNITS
/HR 5 mls/hr ART SHEATH .Q24H
GINNA Rx#:[id number]
Heparin 120 / 120
Nss 1,000 ml @ 46 mls/hr INF
CATH .[id number] GINNA Rx#:[id number]
Nss 1,000 ml @ 80 mls/hr IV .
[id number] GINNA Rx#:[id number]
alteplase
IV piggybacks 45 / 45
Output:
Urine, Ovalle 1050 / 1050
Urine, Voided 2049
Other:
Number of approximated MODERATE 1
amounts of urine
Number of approximated LARGE 1
amounts of urine
Lab Results
08/04/24 07:46
08/04/24 07:46
Calcium 9.1 mg/dl (8.4-10.2) 08/04/24 07:46
Phosphorus 4.0 mg/dl (2.5-4.5) 08/02/24 03:11
Magnesium 2.0 mg/dl (1.6-2.3) 08/02/24 03:11
Total Bilirubin 1.2 mg/dl (0.2-1.3) 08/02/24 03:11
Direct Bilirubin 0.2 mg/dl (0.0-0.4) 08/02/24 03:11
AST 24 U/L (17-59) 08/02/24 03:11
ALT 17 U/L (0-50) 08/02/24 03:11
Alkaline Phosphatase 100 U/L (38-126) 08/02/24 03:11
Total Protein 5.4 g/dl (6.3-8.2) L 08/02/24 03:11
Albumin 3.0 g/dl (3.5-5.0) L 08/02/24 03:11
Physical Exam
-
Afebrile.
Awake and alert.
Abdomen soft.
Left groin flat.
Right calf soft. Compartments all soft.
Feet are both warm.
[2024-08-04 11:23] VITALS: BP 138/81
--- NOTE | 2024-08-04 11:59 | W.PN.HOSP.TC ---
Today's Communication/Plan
-
continue IV heparin
NPO p MN for bypass tomorrow
await Echo
Assessment / Plan
Assessment / Plan
Assessment:
Acute right lower extremity ischemia - due to distal right SFA occlusion noted on CTA. Associated right popliteal artery aneurysm, aneurysm of the left distal SFA.
- s/p thrombolysis and arteriogram of right lower extremity 08/01
- went back to OR 08/02 for subacute right lower extremity ischemia. s/p balloon angioplasty of right popliteal artery above and below the knee 08/02
- planned for right lower extremity bypass with popliteal aneurysm exclusion 08/05
- Cardiology following; high risk pre-op but at present is medically optimized and compensated. Echo pending
- continue IV heparin - requires intensive monitoring of PTTs
Acute uncomplicated sigmoid diverticulitis
- continue Augmentin, day 07/07
Chronic heart failure reduced EF �stable.
- continue metoprolol succinate, spironolactone, dapagliflozin
Aortic stenosis -status post TAVR.
Tobacco dependence - highly recommend abstinence. Discussed with patient and .
History of NSVT
DM2 without hyperglycemia - hemoglobin A1c 7.4%. Uses Jardiance at home. Currently on insulin sliding scale. Glucoses are controlled. Resume Jardiance.
COPD without exacerbation
CAD
- continue aspirin, atorvastatin, metoprolol succinate, ranolazine
Hyperlipidemia -Lipitor.
hx of VT s/p ICD
DVT ppx: IV Heparin
Code: Full
Anticipated Discharge: > 48 hours
Subjective/Interval History
-
Date of Service: August 04, 2024
no new complaints at present
Objective Data
-
Labs:
Laboratory Results
08/04/24
07:46
WBC 7.7
Hgb 14.0
Hct 41.0
Plt Count 140
APTT 107.2 H
Sodium 134 L
Potassium 4.2
Chloride 105
Carbon Dioxide 25
BUN 18
Creatinine 0.8
Glucose 133 H
Calcium 9.1
Vital Signs:
Vital Signs
Temp Pulse Resp BP Pulse Ox
98.1 F 74 17 127/75 93
08/04/24 07:24 08/04/24 07:24 08/04/24 07:24 08/04/24 07:24 08/04/24 07:24
I&O
08/03/24 08/04/24 08/05/24
06:59 06:59 06:59
Intake Total 1500 / 1500
Output Total 3100 / 3100
Balance -1600 / -1600
Physical Exam
-
General: No Apparent Distress
HEENT: Normocephalic and Atraumatic
Respiratory: Negative Wheezes
Cardiac: Regular Rhythm and S1/S2
GI: Soft and Nontender
Genito-urinary: No Costovertebral Tender
Neuro: AO x 3
Hematologic / Lymphatic: No Lymphadenopathy
Psych: Calm
Data Reviewed
-
Total Time Spent with Patient (in minutes): 51
Labs: Labs Reviewed by me
[2024-08-04 12:10] LABS: Glucose - Point of Care 143 mg/dl (70-99)
--- NOTE | 2024-08-04 15:26 | CM ---
Chart reviewed
Poss planned for OR tomorrow for RLE bypass
PT/OT post op
Plan - TBD post-op
[2024-08-04 15:28] VITALS: BP 117/73
[2024-08-04 17:53] LABS: Glucose - Point of Care 138 mg/dl (70-99)
[2024-08-04 19:20] VITALS: BP 112/63
[2024-08-04 21:40] LABS: Glucose - Point of Care 144 mg/dl (70-99)
[2024-08-04 23:53] VITALS: BP 126/79
[2024-08-05] VITALS (16 sets, daily range): BP systolic 8–123; BP diastolic 40–74; BMI 26.2
[2024-08-05 00:49] LABS: Urine Albumin 2+ (Neg - Trace); Urine Bilirubin Negative (Negative); Urine Character Cloudy (Clear); Urine Color Yellow; Urine Glucose 4+ (Negative); Urine Ketone Negative (Negative); Urine Leukocyte 1+ (Negative); Urine Nitrite Negative (Negative); Urine Occult Blood 4+ (Negative); Urine Urobilinogen Negative (Neg - 1+)
[2024-08-05 01:51] LABS: Urine Bacteria Few (Negative); Urine Red Blood Cell >100 /HPF (0-2)
[2024-08-05] MEDS: HEPARIN 25000 UNITS/250 ML IV ×2 (01:51→17:18)
[2024-08-05 06:39] LABS: Hematocrit 42.4 % (39.0-52.0); Hemoglobin 14.3 g/dL (13.0-18.0); INR 1.16; Mean Corp Hgb Conc. 33.7 g/dL (33.0-37.0); Mean Corpuscular Hgb 30.8 pg (27.0-31.0); Mean Corpuscular Volume 91.2 fL (80.0-94.0); Mean Platelet Volume 10.4 fL (7.4-10.4); PT 15.1 Sec (11.4-14.6); Platelet Count 151 10^3/uL (130-400); Red Blood Cell Count 4.65 10^6/uL (4.70-6.10); White Blood Cell Count 7.7 10^3/uL (4.8-10.8)
[2024-08-05 06:41] LABS: APTT 70.6 Sec (23.4-35.0)
[2024-08-05 06:56] LABS: Glucose - Point of Care 131 mg/dl (70-99)
[2024-08-05 07:29] LABS: Blood Urea Nitrogen 20 mg/dl (9-20); Calcium 9.5 mg/dl (8.4-10.2); Carbon Dioxide 23 mmol/L (22-30); Chloride 102 mmol/L (98-107); Estimated Creatinine Clearance 91 ml/min; Glucose 148 mg/dl (70-99); Potassium 4.3 mmol/L (3.5-5.1); Sodium 134 mmol/L (135-145); eGFR > 60.00
[2024-08-05] MEDS: NOVOLOG FLEXPEN-LOW RESISTANCE SC ×3 (07:52→20:32)
[2024-08-05] MEDS: TOPROL XL 12.5 MG PO ×2 (08:35→21:16)
[2024-08-05] MEDS: THERAGRAN PO (08:35)
[2024-08-05] MEDS: RANEXA EXTENDED RELEASE 500 MG PO ×2 (08:35→21:16)
[2024-08-05] MEDS: ASPIR LOW (ENTERIC COATED) 81 MG PO (08:35)
[2024-08-05] MEDS: LIPITOR PO (08:35)
[2024-08-05] MEDS: FARXIGA PO (08:35)
[2024-08-05] MEDS: VITAMIN C PO (08:35)
[2024-08-05] MEDS: ALDACTONE PO (08:35)
[2024-08-05] MEDS: AUGMENTIN 875 MG/125 MG 1 TABLET PO ×2 (08:35→21:16)
[2024-08-05] MEDS: PERIDEX 0.12% ORAL RINSE 15 ML PO (09:52)
[2024-08-05] MEDS: BACTROBAN 2% OINTMENT 1 APPLIC NASAL (09:53)
--- NOTE | 2024-08-05 11:41 | W.PN.HOSP.TC ---
Today's Communication/Plan
-
OR for bypass procedure
Assessment / Plan
Assessment / Plan
Assessment:
Acute right lower extremity ischemia - due to distal right SFA occlusion noted on CTA. Associated right popliteal artery aneurysm, aneurysm of the left distal SFA.
- s/p thrombolysis and arteriogram of right lower extremity 08/01
- went back to OR 08/02 for subacute right lower extremity ischemia. s/p balloon angioplasty of right popliteal artery above and below the knee 08/02
- planned for right lower extremity bypass with popliteal aneurysm exclusion today
- Cardiology following; high risk pre-op but at present is medically optimized and compensated.
- Echo: Normal appearing LV size with low normal systolic function and without obvious wall motion abnormalities. LVEF is approximately 50-55%. No LVH. Normal right ventricular size and function. Normally functioning 29mm Nataly TAVR - Peak
gradient 15mmHg/Mean gradient
7mmHg - no aortic regurgitation is seen. Mild tricuspid regurgitation. Estimated pulmonary artery pressure of 35 mmHg assuming a right atrial pressure of 3 mmHg. Compared to prior on October 31, 2022, on [id number] comparison LVEF has improved now
approximately 50-55%, previously 30-35%.
Acute uncomplicated sigmoid diverticulitis
- continue Augmentin, day 08/04
abnormal UA
- await urine culture
Chronic heart failure reduced EF �stable.
- continue metoprolol succinate, spironolactone, dapagliflozin
Aortic stenosis - status post TAVR.
Tobacco dependence - highly recommend abstinence. Discussed with patient and .
History of NSVT
DM2 without hyperglycemia - hemoglobin A1c 7.4%. Uses Jardiance at home. Currently on insulin sliding scale. Glucoses are controlled. Resume Jardiance.
COPD without exacerbation
CAD
- continue aspirin, atorvastatin, metoprolol succinate, ranolazine
Hyperlipidemia -Lipitor.
hx of VT s/p ICD
DVT ppx: IV Heparin
Code: Full
Anticipated Discharge: > 48 hours
Subjective/Interval History
-
Date of Service: August 05, 2024
no complaints
for OR and bypass today
Objective Data
-
Labs:
Laboratory Results
08/05/24 08/05/24
06:03 14:05
WBC 7.7
Hgb 14.3
Hct 42.4
Plt Count 151
PT 15.1 H
INR 1.16
APTT 70.6 H Pending
Sodium 134 L
Potassium 4.3
Chloride 102
Carbon Dioxide 23
BUN 20
Creatinine 0.8
Glucose 148 H
Calcium 9.5
Vital Signs:
Vital Signs
Temp Pulse Resp BP Pulse Ox
97.3 F 73 16 118/58 95
08/05/24 11:22 08/05/24 11:22 08/05/24 11:22 08/05/24 11:22 08/05/24 11:22
I&O
08/04/24 08/05/24 08/06/24
06:59 06:59 06:59
Intake Total 1500 / 1500 2280 / 2280
Output Total 3100 / 3100 2650 / 2650
Balance -1600 / -1600 -370 / -370
Physical Exam
-
General: No Apparent Distress
HEENT: Normocephalic and Atraumatic
Respiratory: Negative Wheezes
Cardiac: Regular Rhythm
GI: Soft
Musculoskeletal: No Edema
Neuro: AO x 3
Psych: Calm
Data Reviewed
-
Total Time Spent with Patient (in minutes): 42
Labs: Labs Reviewed by me
[2024-08-05 12:14] LABS: Glucose - Point of Care 123 mg/dl (70-99)
[2024-08-05 13:33] LABS: ACT-LR - POC 144 Seconds (116-155)
--- NOTE | 2024-08-05 13:37 | PTCARENOTE ---
Accu check blood sugar 303.Dr Carmichael made aware.Pt received NovoLog dose as ordered.
--- NOTE | 2024-08-05 14:34 | CM ---
Reviewed the chart notes. Patient to OR for right lower extremity bypass with popliteal aneurysm exclusion. CM continues to be available to patient/family and is monitoring medical plan for needs at discharge.
Plan: Discharge plans will depend on the patient's progress.
[2024-08-05 15:00] LABS: ACT-LR - POC 289 Seconds (116-155)
[2024-08-05 15:07] LABS: Glucose - Point of Care 155 mg/dl (70-99)
[2024-08-05 15:58] LABS: ACT-LR - POC 284 Seconds (116-155)
--- NOTE | 2024-08-05 16:48 | W.SUR.POST ---
Surgical Immediate Post Op
Note
Pre Op Diagnosis: RLE acute limb ischemia
Post Op Diagnosis: RLE acute limb ischemia
Procedure Performed: R GSV harvest, R SFA to peroneal bypass using non-reversed GSV, exclusion of popliteal aneurysm
Primary Surgeon: Phong Ovalle
Secondary Surgeons: Carlos Dee
Anesthesia: see anesthesia flowsheet
Estimated Blood Loss: 150cc
Fluids: see anesthesia flowsheet
Drains/Shunts: FLY x 2 in surgical bed
Specimens/Cultures: none
Doppler/Duplex/Angio (Y/N): y, doppler
Complications: none
Operative Findings: Harvested R GSV. R SFA and peroneal cutdowns. R SFA to peroneal bypass with GSV graft, non-reversed, after two passes of valvulotome. FLY x 2 in surgical bed. Dopplerable R DP and PT at end of case.
[2024-08-05 17:09] LABS: Glucose - Point of Care 182 mg/dl (70-99)
[2024-08-05] MEDS: NSS 500 IV (17:24)
[2024-08-05 17:31] LABS: Hematocrit 42.4 % (39.0-52.0); Mean Corpuscular Hgb 30.5 pg (27.0-31.0); Mean Corpuscular Volume 92.4 fL (80.0-94.0); Platelet Count 190 10^3/uL (130-400); Red Blood Cell Count 4.59 10^6/uL (4.70-6.10); Red Cell Dist. Width 13.2 % (11.5-14.5); White Blood Cell Count 9.8 10^3/uL (4.8-10.8)
[2024-08-05 17:39] LABS: APTT 192.1 Sec (23.4-35.0)
[2024-08-05 18:22] LABS: Blood Urea Nitrogen 18 mg/dl (9-20); Calcium 8.6 mg/dl (8.4-10.2); Carbon Dioxide 20 mmol/L (22-30); Chloride 104 mmol/L (98-107); Estimated Creatinine Clearance 91 ml/min; Glucose 176 mg/dl (70-99); Potassium 5.7 mmol/L (3.5-5.1); Sodium 132 mmol/L (135-145); eGFR > 60.00
[2024-08-05] MEDS: NSS 1000 IV (19:00)
--- NOTE | 2024-08-05 19:00 | PTCARENOTE ---
Resumed care of pt this evening. Received pt on heparin gtt infusing at continuous rate of 500 units/hr per order. Pt's surgical dressings on rt leg are intact. Pt has 2 FLY drains draining serosang drainage. Pt notes having sensation on right lower
extremity, can move toes, has adequate capillary refill, warm to palpation and PT/DP pulses present w/ doppler.
--- NOTE | 2024-08-05 19:07 | PTCARENOTE ---
1830-Pt admitted to ICU via bed from PACU.Pt is awake and alert.Speech is appropriate.+ELLIOTT.c/o burning sensation at incision site.SR with 1st degree AVB,BBB and prolonged QT.IVF infusing as ordered.+ DP and PT pulses present with Doppler.POX 94%
with O2 NC.Ovalle intact.Right groin and leg dressings intact with shadowing marked by RAIL SWITCHMAN.FLY A and B intact.Pt's daughters at bedside.
--- NOTE | 2024-08-05 19:39 | OR.RPT ---
Operative Report
Operative Report
Date of Operation: 08/05/2024
Pre Op Diagnosis:
1. Recently thrombosed right popliteal artery aneurysm leading to acute limb ischemia
2. Status post successful thrombolysis right lower extremity
Post Op Diagnosis:
1. Recently thrombosed right popliteal artery aneurysm leading to acute limb ischemia
2. Status post successful thrombolysis right lower extremity
Procedure:
1. Right proximal superficial femoral artery to peroneal artery bypass using ipsilateral nonreversed great saphenous vein
2. Ligation and exclusion of popliteal artery aneurysm
Surgeon: Phong Ovalle III, MD
Medical Claims Examiner: Carlos Dee MD, PGY4
Anesthesia: General
Complications: None
Estimated Blood Loss: 100 cc
History and Indications for Procedure: 78-year-old male with recent acute limb ischemia secondary to a thrombosed popliteal artery aneurysm. He was successfully thrombolysed and brought back to the operating room today for bypass and exclusion of
the popliteal artery aneurysm.
Procedure in Detail: Guzman Law was correctly identified and placed supine on the operating table. After adequate induction of anesthesia the right greater saphenous vein was imaged with ultrasound and marked. The abdomen, pelvis, bilateral groins
and right lower extremity circumferentially were then positioned, prepped and draped in the usual sterile fashion. Preoperative antibiotics were administered. A timeout procedure was performed with the nursing and anesthesia staff confirming the
patients identity as well as the nature and laterality of the procedure.
An incision was made from the groin to the mid calf over the right greater saphenous vein marisa. The vein was harvested along this entire course. All branches were ligated and divided between ties and clips. The vein appeared to be of adequate
caliber and quality to be used as a bypass conduit. The right proximal superficial femoral artery was then sharply dissected through the groin incision. Proximal and distal control was obtained with vessel loops.
The peroneal artery was chosen as the distal target and was sharply exposed through the same mid calf incision. A soft spot was identified for the distal anastomosis. Proximal and distal control was obtained with vessel loops.
A tunnel was then created between the peroneal artery exposure and the superficial femoral artery. The distal end of the vein was ligated with a tie and clip. The distal end of the vein was transected and then the vein was dilated with heparinized
saline. All branch points were closely inspected. The vein was marked for proper orientation. A clamp was placed at the saphenofemoral junction and the proximal end of the vein was transected. The SFJ stump was ligated with a silk ligature.
The patient was systemically heparinized.
The proximal and distal vessel loops on the SFA were secured. An arteriotomy was made in the superficial femoral artery and extended proximally and distally with Steele scissors. The vein was brought to the field and positioned in a nonreversed
orientation. The proximal end of the vein was inspected closely. There was no valve identified in the proximal segment. The proximal end of the vein was spatulated and an end-to-side anastomosis was created with a running 5-0 Prolene suture. The
anastomosis was completed and the vessel loops were released. I then passed the LeMaitre valvulotome from the distal end of the vein to the proximal vein just distal to the anastomosis. This was confirmed with digital palpation. The valvulotome
was deployed and slowly pulled through the vein. I passed the valvulotome 2 separate times. Following this there was excellent pulsatile bleeding from the distal end of the vein conduit. The proximal suture line was inspected for hemostasis and
was achieved. While pressurized the vein was then brought through the tunnel carefully to keep proper orientation. A vascular clamp was placed gently on the vein graft just distal to the anastomosis.
The peroneal artery proximal and distal vessel loops were secured. The vein graft was temporarily pressurized and shortened appropriately. An arteriotomy was made in the peroneal artery with an ophthalmic blade and extended proximally and distally
with Steele scissors. The end of the vein conduit was spatulated and an end-to-side anastomosis created with a running 7-0 Prolene. Prior to the completion of the anastomosis the proximal bulldog clamp was temporarily released and the vein flushed.
The area under the anastomosis was irrigated with heparinized saline and the anastomosis completed. The proximal clamp and then the vessel loops on the peroneal artery were released. Immediately there was a pulse in the vein conduit and the distal
peroneal artery beyond the distal anastomosis. An excellent quality Doppler signal was audible in the distal peroneal artery which augmented clearly with compression and release of the bypass. The suture lines were both inspected and hemostasis
achieved.
Through the medial calf incision I then exposed the below the knee popliteal artery with sharp dissection. I ligated the below-knee popliteal artery with a heavy silk tie. Through the same incision in the distal thigh I exposed the above-knee
popliteal artery. This was ligated with a silk tie thereby excluding the popliteal artery aneurysm.
Protamine was administered. Hemostasis was achieved in the wound beds. 2 #10 FLY drains were left in the saphenectomy bed. The wounds were irrigated with warm saline solution. The wounds were closed in layers. Sterile dressings were applied.
The patient tolerated the procedure well and was taken to the PACU in stable condition. The patient had audible Doppler signals at the dorsalis pedis and posterior tibial artery locations in the right foot.
Attestation: I was present and responsible for the entire procedure
Signed:
Phong Ovalle III, MD
[facility]
[phone] (ffbi)
[2024-08-05] MEDS: DILAUDID 0.5 MG IV (21:17)
--- NOTE | 2024-08-05 22:00 | PTCARENOTE ---
Pt c/o 8 out of 10 pain at surgical site. PRN dose of dilaudid administered by this RN per protocol.
[2024-08-05 22:15] LABS: Blood Urea Nitrogen 19 mg/dl (9-20); Calcium 8.4 mg/dl (8.4-10.2); Carbon Dioxide 22 mmol/L (22-30); Chloride 104 mmol/L (98-107); Estimated Creatinine Clearance 104 ml/min; Glucose 175 mg/dl (70-99); Potassium 5.2 mmol/L (3.5-5.1); Sodium 132 mmol/L (135-145); eGFR > 60.00
[2024-08-05 23:58] LABS: APTT 32.8 Sec (23.4-35.0)
[2024-08-06] VITALS (12 sets, daily range): BP systolic 94–123; BP diastolic 46–67; BMI 26.3
--- NOTE | 2024-08-06 00:20 | PTCARENOTE ---
Upon re assessment pt is resting comfortably.
[2024-08-06 05:06] LABS: Hematocrit 36.4 % (39.0-52.0); Hemoglobin 12.3 g/dL (13.0-18.0); Mean Corp Hgb Conc. 33.8 g/dL (33.0-37.0); Mean Corpuscular Hgb 31.2 pg (27.0-31.0); Mean Corpuscular Volume 92.4 fL (80.0-94.0); Platelet Count 154 10^3/uL (130-400); Red Blood Cell Count 3.94 10^6/uL (4.70-6.10); Red Cell Dist. Width 13.1 % (11.5-14.5); White Blood Cell Count 11.6 10^3/uL (4.8-10.8)
[2024-08-06 05:18] LABS: PT 15.5 Sec (11.4-14.6)
[2024-08-06 05:19] LABS: APTT 30.3 Sec (23.4-35.0)
[2024-08-06 05:34] LABS: Blood Urea Nitrogen 18 mg/dl (9-20); Calcium 8.5 mg/dl (8.4-10.2); Carbon Dioxide 23 mmol/L (22-30); Chloride 105 mmol/L (98-107); Estimated Creatinine Clearance 104 ml/min; Glucose 157 mg/dl (70-99); Potassium 4.8 mmol/L (3.5-5.1); Sodium 133 mmol/L (135-145); eGFR > 60.00
--- NOTE | 2024-08-06 07:52 | W.PN.VS ---
Addendum entered and electronically signed by Praful Darling MD 08/06/24 13:47:
Seen and examined earlier this a.m. with HEALTH CARE ANALYST. Agree with findings as noted below. Right lower extremity dressings clean dry and intact. Foot warm. Doppler signals as noted. Plan/as discussed and noted below.
Original Note:
Today's Communication / Plan
-
Patient seen and examined with Dr. Praful Darling, below plan reviewed with attending.
Assessment/Plan
-
Assessment: 78 year old male status post thrombolysis right lower extremity occluded popliteal and SFA. Angioplasty of popliteal artery as well. POD#1 RLE SFA to peroneal bypass
Plan:
Discontinue IV fluids
Discontinue arterial line
OOB to chair
DC cummings catheter
Smoking cessation education
Encourage incentive spirometry
DC standing heparin infusion and will initiate p.o. Eliquis 5 mg twice daily for full anticoagulation to aid in bypass patency
Subjective Data
-
Date of Service: August 06, 2024
Patient seen and examined at bedside, offers no complaints. Reports adequate post operative pain management. Denies nausea, vomiting, fever, and chills.
Objective Data
-
Vital Signs
Temp Pulse Resp BP Pulse Ox
97.5 F 72 19 106/61 92
08/05/24 23:23 08/06/24 07:15 08/06/24 07:15 08/06/24 06:00 08/06/24 07:15
Intake and Output
08/05/24 08/06/24 08/07/24
06:59 06:59 06:59
Intake Total 2280 / 2280 1720 / 1720
Output Total 2650 / 2650 1181 / 1181
Balance -370 / -370 539 / 539
Intake:
Oral fluids 2280 / 2280
IV fluids (Total) 1720 / 1720
Heparin 60 / 60
Normosol 200 / 200
nss 1460 / 1460
Output:
Drain Output (Total) 56 / 56
Right Leg Doc-Anderson A
Right Leg Doc-Anderson B
Urine, Cummings 1125 / 1125
Urine, Voided 2650 / 2650
Other:
Number of approximated MODERATE 1
amounts of urine
Number of approximated LARGE 1
amounts of urine
Lab Results
08/06/24 04:57
08/06/24 04:57
Calcium 8.5 mg/dl (8.4-10.2) 08/06/24 04:57
Phosphorus 4.0 mg/dl (2.5-4.5) 08/02/24 03:11
Magnesium 2.0 mg/dl (1.6-2.3) 08/02/24 03:11
Total Bilirubin 1.2 mg/dl (0.2-1.3) 08/02/24 03:11
Direct Bilirubin 0.2 mg/dl (0.0-0.4) 08/02/24 03:11
AST 24 U/L (17-59) 08/02/24 03:11
ALT 17 U/L (0-50) 08/02/24 03:11
Alkaline Phosphatase 100 U/L (38-126) 08/02/24 03:11
Total Protein 5.4 g/dl (6.3-8.2) L 08/02/24 03:11
Albumin 3.0 g/dl (3.5-5.0) L 08/02/24 03:11
Physical Exam
-
NAD, resting in bed comfortably
No tachycardia
No dyspnea on supplemental oxygen via NC
ABD routund, non-tender, non-distended
Right LE dressings CDI, no evidence of hematoma, all compartments soft, FLY with scant serosanguineous drainage, right DP/PT signal by doppler
BL feet warm
[2024-08-06] MEDS: NSS IV (08:04)
--- NOTE | 2024-08-06 08:10 | W.PN.CD ---
Today's Communication / Plan
-
- continue ASA, and Lipitor - also on heparin as per vascular surgery
- CHF meds to continue including metoprolol, Farxiga, Aldactone, Ranexa
- Holding lisinopril at this time. Likely will resume before discharge.
Impression / Plan
-
78 year old male (known to Dr. Vargas, his primary Neighborhood Coordinator) with CAD (APPAREL EMBROIDERY DIGITIZER of mid RCA and OM1; no stents), NSTEMI 08/2021, chronic HFrEF/ICM (EF 30-35%), VT s/p St Dylan ICD, TAVR (09/28/22), NIDDM, COPD with continued cigarette use, and PAD
admitted with leg pain. Patient underwent thrombolysis of right lower extremity occluded popliteal and SFA. Cardiology consulted for preprocedural cardiac evaluation for possible lower extremity bypass surgery. The patient has no active cardiac
symptoms/complaints; he denies chest pain, shortness of breath, or palpitations.
PAD
-Severe PAD with right lower ext critical limb ischemia s/p balloon angioplasty 08/02/24
-s/p Right proximal SFA to peroneal artery bypass using ipsilateral SVG and Ligation and exclusion of popliteal artery aneurysm - 08/05/24
-echocardiogram 08/04/24: Compared to prior on October 31, 2022, on [id number] comparison LVEF has improved now approximately 50-55%, previously 30-35%.
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
-Will continue to follow.
CAD (APPAREL EMBROIDERY DIGITIZER of mid RCA and OM1; no stents):
-Patient denies any anginal symptoms.
-Continue aspirin, atorvastatin, metoprolol succinate, ranolazine.
Chronic HFrEF/ICM
- Previously EF 30-35% - now improved to 50%
-Compensated on examination.
-Continue metoprolol succinate, spironolactone, dapagliflozin:
VT s/p St Dylan ICD:
-Currently stable.
-Continue metoprolol succinate.
TAVR (09/28/22):
-Clinically stable.
NIDDM:
-Management as per primary team.
COPD with continued cigarette use:
-Patient smokes approximately 1 pack/week of cigarettes.
-Counseled today on the importance of smoking cessation.
Hyponatremia and hyperkalemia
-Free water restriction
-K is normalized - Cr is normal.
Physical Exam
Vital Signs/Labs
Vital Signs
Temp Pulse Resp BP Pulse Ox
97.4 F 72 19 106/61 92
08/06/24 07:25 08/06/24 07:15 08/06/24 07:15 08/06/24 06:00 08/06/24 07:15
08/05/24 08/06/24 08/07/24
06:59 06:59 06:59
Actual Weight 95.209 kg
08/06/24 04:57
08/06/24 04:57
PT 15.5 Sec (11.4-14.6) H 08/06/24 04:57
INR 1.20 08/06/24 04:57
APTT 30.3 Sec (23.4-35.0) 08/06/24 04:57
Magnesium 2.0 mg/dl (1.6-2.3) 08/02/24 03:11
Physical Exam
Constitutional: No acute distress and Comfortable
EENT: Anicteric and Moist mucous membranes
Cardiovascular: Rhythm & rate is regular, Pedal edema is absent and JVD pressure is normal
Respiratory: Respiratory effort normal, Lungs clear to auscul. and Wheeze Absent
GI: Soft, Non tender and Normal bowel sounds
Neuro/Psych: Alert, Oriented and AO x 3
Other: Skin
Data Reviewed
-
Date of Service: August 06, 2024
Medical Decision Making: Reviewed Test Results, Test Interpretation and Review of Case with other Provider
EKG: Tracing Personally Visualized and interpreted
Echo: Tracing Personally Visualized and interpreted and Report Reviewed by me
Labs: Labs Reviewed by me
Old Records: Reviewed
[2024-08-06] MEDS: THERAGRAN 1 TABLET PO (08:11)
[2024-08-06] MEDS: TOPROL XL 12.5 MG PO ×2 (08:11→20:56)
[2024-08-06] MEDS: FARXIGA 10 MG PO (08:11)
[2024-08-06] MEDS: AUGMENTIN 875 MG/125 MG 1 TABLET PO ×2 (08:11→20:56)
--- NOTE | 2024-08-06 08:11 | W.PN.INTV ---
Today's Communication / Plan
Recommendations
Up OOB as tolerated
Encourage incentive spirometer use
Maintain MAP 70�100
Continue aspirin, statin + Toprol-XL
Pain control
Maintain SpO2 88-95%
Once patient is transferred to telemetry then Repeater Chief/Pulmonary service will sign off at that time. Patient recommended to follow-up with Dr. Dewitt as an outpatient. Please call back with any questions or concerns.
Assessment
-
78-year-old gentleman presented to emergency room with critical limb ischemia and was started on intra-arterial thrombolytic therapy 08/01, next morning morning noted to have decreased capillary refill, and underwent diagnostic right lower extremity
arteriogram with initiation of arterial thrombosis. On 08/02/2024 he underwent balloon angioplasty of right [id number] popliteal artery as well as balloon angioplasty of right below the knee popliteal artery. He was transferred to telemetry for
further management, and on 08/05/2024 he went for a right proximal superficial femoral artery to peroneal arterial bypass and was transferred back to the ICU postoperatively.
Assessment:
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
#s/p balloon angioplasty of right above the knee + below the knee popliteal artery (procedure date: 08/02/2024)
#s/p right proximal superficial femoral artery to peroneal artery bypass using ipsilateral nonreversed great saphenous vein + ligation and exclusion of popliteal artery aneurysm (POD #1)
#Acute anemia due to above
#Hyponatremia
#Former tobacco use (120-PY Hx --> smoked for 60 years, smoking 1PPD for 'many years' and as much as 2�2.5 PPD for 10 of those smoking years; quit smoking in September 2021)
#COPD/panlobular emphysema (GOLD class II via PFT from 02/04/2024 with significant bronchodilator response and severely reduced gas exchange capacity with DLco: 27%; DLco/VA: 30%)
#Chronic HFpEF
#History of aortic valve stenosis s/p TAVR
#History of iron deficiency anemia
Other active medical issues
-Acute diverticulitis, recent diagnosis, on antibiotics, transitioned to Augmentin
-Known history of heart failure with reduced ejection fraction, with most recent TTE on 08/04/2024 showing preserved LVEF at 50-55% with normal RV size and function, and peak/mean gradient across AV of 15/7 mmHg, respectively
-History of aortic stenosis, s/p TAVR
-Diabetes mellitus type II
-Coronary artery disease
-Hyperlipidemia
Plan:
Postoperative surgical intensive care unit monitoring
Supplemental oxygen as needed to maintain SpO2 88-95%
prn nebulized bronchodilators � not currently bronchospastic; at home he takes DuoNebs prn as he does not feel a benefit from taking inhalers
Incentive spirometry encouraged 10x per hour for at least 4 hrs a day
Aspiration precautions
Pain control
Continue with Augmentin given recent diagnosis of sigmoid acute diverticulitis seen on CTA abdominal aorta on 07/31/2024 --> recommend to complete at least 7-10 days total of antibiotics
UA on 08/05/2024 showed 6�10 urine WBC with few urine bacteria and +1 leukocyte esterase --> UCx shows NGTD
Neuro and vascular checks per protocol
Maintain MAP>65
Replete electrolytes with K>4, Mg>2
Maintain euglycemia with goal BG 140-180
Vascular surgery following-correspondence and operative notes reviewed
Transfuse blood products as needed to keep Hb>7g/dL, and plt>50k (given post-operative status)
Continue follow-up with pulmonary office as an outpatient; he does qualify for annual LDCT chest, next due this month (LDCT chest from 08/23/2023 did not show any concerning nodule or mass)
DVT prophylaxis
Early nutrition
Early mobilization
Once patient is transferred to telemetry then Repeater Chief/Pulmonary service will sign off at that time. Patient recommended to follow-up with Dr. Dewitt as an outpatient. Please call back with any questions or concerns.
Critical care statement: A total of 38 minutes of critical care time was provided for this patient today. This includes management of unstable vital signs, evaluation of the patient at bedside, reviewing the patient's pertinent medical records
including radiographs, microbiology, laboratory evaluations, and discussion with primary team, consultants, pharmacy, nutrition, physical therapy, case management, charge nurse, critical care nursing, and respiratory therapy.
Data:
CTA abdominal aorta with runoff 07/31/2024:
There is significant diffuse atherosclerotic disease with calcification.
There is occlusion of the distal right SFA. On delayed images, minimal contrast opacification within the lumen of the right popliteal artery. There does appear to be three-vessel runoff within the right calf, somewhat limited evaluation because of
severe calcification.
No evidence for occlusion of the left arterial circulation.
Aneurysm of the right popliteal artery. Aneurysm of the left distal SFA.
In the right pelvis, CT findings highly suggestive of diverticulitis involving the sigmoid colon. No evidence of abscess or free intraperitoneal air.
Subjective Dataa
Subjective Data
Date of Service:
Date of Service: August 06, 2024
Chief Complaint: Repeater Chief Follow Up
Subjective:
Patient was transferred back to the ICU last night on 08/05 following right proximal superficial femoral artery to peroneal artery bypass with ligation and exclusion of popliteal artery aneurysm. Patient tolerated the procedure well with EBL 100 cc.
This morning patient is resting, sitting in a chair in no acute distress. Currently on room air breathing comfortably, saturating 96%. Heart rate 95, breathing at 19 breaths/min, and BP 97/53. He has some pain in his right groin and his right
lower leg was painful yesterday after the operation but it is much improved as of today.
Review of Systems
General: Other (Negative unless mentioned above)
Objective Data
Data Reviewed
Vital Signs / I&O / Oxygen:
Vital Signs
Temp Pulse Resp BP Pulse Ox
97.5 F 79 18 100/54 95
08/06/24 15:06 08/06/24 15:00 08/06/24 15:00 08/06/24 12:14 08/06/24 13:01
Intake and Output
08/05/24 08/06/24 08/07/24
06:59 06:59 06:59
Intake Total 2280 / 2280 1720 / 1805 470 / 470
Output Total 2650 / 2650 1181 / 1331 1560 / 1560
Balance -370 / -370 539 / 474 -1090 / -1090
SaO2 95
Nasal Cannula flow liters per 2
minute
Physical Exam
General: Respiratory Distress (negative), Comfortable, Chills (negative) and Sweats (negative)
HEENT: Normocephalic and Anicteric
Cardiovascular: S1-S2, Rub (negative) and Peripheral Edema (Trace lower extremity edema bilaterally)
Respiratory: Clear, Wheeze (negative), Crackles (negative), Rhonchi (negative) and Non-Labored Respirations
GI: Soft, Non Distended, Non Tender and Normal Bowel Sounds
Neurology: AO x 3 and Tremors (negative)
Skin: Warm, Dry, Cyanosis (negative), Jaundice (negative) and Other (Bandage across medial right lower extremity)
Labs/Micro/Reports
Lab Data
08/06/24 04:57
08/06/24 04:57
Laboratory Results
08/05/24 08/05/24 08/06/24
17:04 23:32 04:57
PT 15.5 H
INR 1.20
APTT 192.1 H* 32.8 30.3
Microbiology
08/05/24 00:34 Urine Urine Culture - Final
NO GROWTH
[2024-08-06] MEDS: RANEXA EXTENDED RELEASE 500 MG PO ×2 (08:12→20:56)
[2024-08-06] MEDS: ASPIR LOW (ENTERIC COATED) 81 MG PO (08:12)
[2024-08-06] MEDS: LIPITOR 40 MG PO (08:12)
[2024-08-06] MEDS: VITAMIN C 1000 MG PO (08:12)
[2024-08-06] MEDS: NOVOLOG FLEXPEN-LOW RESISTANCE 1 UNITS SC ×2 (08:14→11:48)
--- NOTE | 2024-08-06 08:42 | PTCARENOTE ---
Assumed care of pt. approx 0700.
Vascular providers bedside. Orders placed below as follows.
Arterial line removed, Ovalle removed, Maint. Fluids stopped, Pt. OOB placed in chair per orders.
Eating breakfast, normocephalic/Anicteric, no neuro deficits noted.
Sinus w. ectopy noted, normotensive via NIBP, Normothermic.
Pulses intact via signal, extrem. warm no concerns upon assessment.
Maintaining own airway, RA, SP02 96 percent.
Heparin gtt D/C, bridge to eliquis, will consult case management for insurance issue regarding Eliquis cost per pt. request.
All questions answered.
[2024-08-06] MEDS: ELIQUIS 5 MG PO ×2 (09:37→20:56)
--- NOTE | 2024-08-06 11:03 | CM ---
CM following re: discharge planning.
Reviewed pt's chart, met with pt and spoke to pt's daughter Magdalene over the phone.
Pt is POD#1 RLE SFA to peroneal bypass, continue supportive care.
Eliquis 5M BID emerson checked with [facility] [employer] prescription plan [phone], prescription plan ID: [id number]. The emerson was given only for 90 days supply: [facility].78 [facility] and [facility]08 at [facility]. Pt is on stage 2 on Medicare
part D plan that is $2,000.00 cap per year.
Pt is aware and both pt and his daughter stated that $210.08 co-pay for 90 days supply at retail [facility] pharmacy is affordable. Free 30 days Eliquis coupon given to the pt.
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
PT and OT evaluations noted. Pt is aware and pt firmly declined VN services and pt requested outpatient PT and OT at . Pt reports he lives with SO who is retired RN and she will bring him to outpatient therapy.
Please provide a script for outpatient therapy.
D/C plan: per pt's strong request, home with Outpatient therapy at and family support. SO to transport at discharge.
CM will follow with discharge plan updates as hospitalization progresses.
--- NOTE | 2024-08-06 11:53 | PTCARENOTE ---
No change in pt. assessment, Remains OOB in chair.
[2024-08-06 11:54] LABS: Glucose - Point of Care 172 mg/dl (70-99)
--- NOTE | 2024-08-06 13:34 | W.PN.HOSP.TC ---
Today's Communication/Plan
-
continue ICU level of care
Eliquis
continue diverticulitis Abx
Assessment / Plan
Assessment / Plan
Assessment:
Acute right lower extremity ischemia - due to distal right SFA occlusion noted on CTA. Associated right popliteal artery aneurysm, aneurysm of the left distal SFA.
- s/p thrombolysis and arteriogram of right lower extremity 08/01
- went back to OR for subacute right lower extremity ischemia. s/p balloon angioplasty of right popliteal artery above and below the knee 08/02
- s/p R GSV harvest, R SFA to peroneal bypass using non-reversed GSV, exclusion of popliteal aneurysm 08/05
- Vascular following
- continue ICU level of care, q1h vascular checks
- continue Eliquis (90 day supply at discharge)
Acute uncomplicated sigmoid diverticulitis
- continue Augmentin, day 09/04
abnormal UA
- urine culture negative
Chronic heart failure reduced EF �stable.
- continue metoprolol succinate, spironolactone, dapagliflozin
- Echo: Normal appearing LV size with low normal systolic function and without obvious wall motion abnormalities. LVEF is approximately 50-55%. No LVH. Normal right ventricular size and function. Normally functioning 29mm Nataly TAVR - Peak
gradient 15mmHg/Mean gradient 7mmHg - no aortic regurgitation is seen. Mild tricuspid regurgitation. Estimated pulmonary artery pressure of 35 mmHg assuming a right atrial pressure of 3 mmHg. Compared to prior on October 31, 2022, on [id number]
comparison LVEF has improved now approximately 50-55%, previously 30-35%.
Aortic stenosis - status post TAVR.
Tobacco dependence - highly recommend abstinence. Discussed with patient and .
History of NSVT
DM2 without hyperglycemia - hemoglobin A1c 7.4%. Uses Jardiance at home. Currently on insulin sliding scale. Glucoses are controlled. Resume Jardiance.
COPD without exacerbation
CAD
- continue aspirin, atorvastatin, metoprolol succinate, ranolazine
Hyperlipidemia -Lipitor.
hx of VT s/p ICD
DVT ppx: Eliquis
Code: Full
Total Critical Care Time 41 minutes. I was immediately available to the patient and staff. I personally examined, reviewed labs, diagnostic images/reports, interpretations, treatment plans, discussed patient care with other providers and family
or caregivers (if patient is unable to make decisions), entered orders as appropriate and documented the medical record.
Anticipated Discharge: > 48 hours
Subjective/Interval History
-
Date of Service: August 06, 2024
denies any complaints at present
Objective Data
-
Labs:
Laboratory Results
08/06/24
04:57
WBC 11.6 H
Hgb 12.3 L
Hct 36.4 L
Plt Count 154
PT 15.5 H
INR 1.20
APTT 30.3
Sodium 133 L
Potassium 4.8
Chloride 105
Carbon Dioxide 23
BUN 18
Creatinine 0.7
Glucose 157 H
Calcium 8.5
Vital Signs:
Vital Signs
Temp Pulse Resp BP Pulse Ox
97.8 F 86 30 100/54 95
08/06/24 11:36 08/06/24 13:00 08/06/24 13:00 08/06/24 12:14 08/06/24 13:01
I&O
08/05/24 08/06/24 08/07/24
06:59 06:59 06:59
Intake Total 2280 / 2280 1720 / 1805 420 / 420
Output Total 2650 / 2650 1181 / 1331 1030 / 1030
Balance -370 / -370 539 / 474 -610 / -610
Physical Exam
-
General: No Apparent Distress
HEENT: Normocephalic and Atraumatic
Respiratory: Negative Wheezes
Cardiac: Regular Rhythm and S1/S2
GI: Soft and Nontender
Musculoskeletal: No Edema
Neuro: AO x 3
Hematologic / Lymphatic: No Lymphadenopathy
Psych: Calm
Data Reviewed
-
Total Time Spent with Patient (in minutes): 42
Labs: Labs Reviewed by me
--- NOTE | 2024-08-06 16:27 | PTCARENOTE ---
Assumed care of pt. AOx3, vascular checks wnl, assessment as documented.
[2024-08-06] MEDS: NOVOLOG FLEXPEN-LOW RESISTANCE 2 UNITS SC (17:27)
[2024-08-06 17:36] LABS: Glucose - Point of Care 216 mg/dl (70-99)
--- NOTE | 2024-08-06 20:00 | PTCARENOTE ---
rec`d pt at 1900 AAOx3. Q1h vascular checks continued. +pulses via doppler. SR to ST at times on monitor. RA POX 96%. uses urinal. pt educated on pressing the call russ for assistance to urinate. bed alarm on. aquacell down right leg with drainage.
bandage still intact. 2 JPs: A and B draining sersang. call russ in reach. safe environment maintained.
[2024-08-06 21:49] LABS: Glucose - Point of Care 281 mg/dl (70-99)
[2024-08-06] MEDS: NOVOLOG FLEXPEN 7 UNITS SC (22:12)
[2024-08-07] VITALS (7 sets, daily range): BP systolic 95–125; BP diastolic 54–74; BMI 26.2
--- NOTE | 2024-08-07 04:37 | PTCARENOTE ---
pt reassessed. no changes in pt assessment. call russ in reach, safe environment maintained.
[2024-08-07 04:49] LABS: Hemoglobin 11.6 g/dL (13.0-18.0); Mean Corp Hgb Conc. 34.1 g/dL (33.0-37.0); Mean Corpuscular Hgb 31.3 pg (27.0-31.0); Mean Corpuscular Volume 91.6 fL (80.0-94.0); Mean Platelet Volume 10.1 fL (7.4-10.4); Platelet Count 169 10^3/uL (130-400); Red Blood Cell Count 3.71 10^6/uL (4.70-6.10); Red Cell Dist. Width 13.2 % (11.5-14.5); White Blood Cell Count 10.3 10^3/uL (4.8-10.8)
[2024-08-07 04:56] LABS: Blood Urea Nitrogen 28 mg/dl (9-20); Carbon Dioxide 24 mmol/L (22-30); Chloride 101 mmol/L (98-107); Estimated Creatinine Clearance 91 ml/min; Glucose 181 mg/dl (70-99); Potassium 4.7 mmol/L (3.5-5.1); Sodium 131 mmol/L (135-145); eGFR > 60.00
[2024-08-07 07:44] LABS: Glucose - Point of Care 186 mg/dl (70-99)
--- NOTE | 2024-08-07 08:02 | W.PN.VS ---
Addendum entered and electronically signed by Praful Darling MD 08/07/24 14:59:
Seen and examined with POLICE CRIME SCENE TECHNICIAN. Agree with findings as noted below. Patient without significant complaints. Right lower extremity dressings all clean dry and intact. JPs serosanguineous/sanguinous. Drainage is noted. Thigh and calf are soft. No
hematomas. Foot is warm. Plan/as discussed and noted below. Continue drains for now.
Original Note:
Today's Communication / Plan
-
Seen and assessed with Dr. Darling
Assessment/Plan
-
Assessment: 78 year old male status post thrombolysis right lower extremity occluded popliteal and SFA. Angioplasty of popliteal artery as well. POD#2 RLE SFA to peroneal bypass
Plan:
PT
Ambulate
Transferred to [facility] /[address] [place] [address]
Smoking cessation education
Encourage incentive spirometry
Keep drains for now
Subjective Data
-
Date of Service: August 07, 2024
Patient seen at bedside same Dr. Darling. Patient offers no complaints at this time. No events overnight.
Objective Data
-
Vital Signs
Temp Pulse Resp BP Pulse Ox
98.4 F 76 15 105/60 96
08/07/24 02:00 08/07/24 06:00 08/07/24 06:00 08/07/24 04:09 08/06/24 20:00
Intake and Output
08/06/24 08/07/24 08/08/24
06:59 06:59 06:59
Intake Total 1720 / 1805 860 / 860
Output Total 1181 / 1331 3460 / 3460
Balance 539 / 474 -2600 / -2600
Intake:
Oral fluids 690 / 690
IV fluids (Total) 1720 / 1805 170 / 170
Heparin 60 / 65 10 / 10
Normosol 200 / 200 0 / 0
nss 1460 / 1540 160 / 160
IV piggybacks 0 / 0
Output:
Drain Output (Total) 56 / 56 110 / 110
Right Leg Doc-Anderson A 35 / 35
Right Leg Doc-Anderson B 75 / 75
Urine, Ovalle 1125 / 1275 400 / 400
Urine, Voided 2950 / 2950
Other:
Number of approximated LARGE 1
amounts of urine
Lab Results
08/07/24 04:16
08/07/24 04:15
Calcium 9.0 mg/dl (8.4-10.2) 08/07/24 04:15
Phosphorus 4.0 mg/dl (2.5-4.5) 08/02/24 03:11
Magnesium 2.0 mg/dl (1.6-2.3) 08/02/24 03:11
Total Bilirubin 1.2 mg/dl (0.2-1.3) 08/02/24 03:11
Direct Bilirubin 0.2 mg/dl (0.0-0.4) 08/02/24 03:11
AST 24 U/L (17-59) 08/02/24 03:11
ALT 17 U/L (0-50) 08/02/24 03:11
Alkaline Phosphatase 100 U/L (38-126) 08/02/24 03:11
Total Protein 5.4 g/dl (6.3-8.2) L 08/02/24 03:11
Albumin 3.0 g/dl (3.5-5.0) L 08/02/24 03:11
Physical Exam
-
NAD, resting in bed comfortably
No tachycardia
No dyspnea on RA
ABD routund, non-tender, non-distended
Right LE dressings CDI, no evidence of hematoma, all compartments soft, FLY with scant serosanguineous drainage, right DP/PT signal by doppler
BL feet warm
FLY A 35
FLY B 75
--- NOTE | 2024-08-07 08:19 | W.PN.INTV ---
Today's Communication / Plan
Recommendations
Up OOB as tolerated
Encourage incentive spirometer use
Maintain MAP 70�100
Continue aspirin, statin + Toprol-XL
Pain control
Maintain SpO2 88-95%
Patient being prepared to be downgraded to telemetry today. No additional recommendations at this time. [facility]/Pulmonary service will now sign off. Outpatient follow-up with Dr. Dewitt. Please reconsult if there are any additional
questions/concerns, or if patient's respiratory status deteriorates.
Assessment
-
78-year-old gentleman presented to emergency room with critical limb ischemia and was started on intra-arterial thrombolytic therapy 08/01, next morning morning noted to have decreased capillary refill, and underwent diagnostic right lower extremity
arteriogram with initiation of arterial thrombosis. On 08/02/2024 he underwent balloon angioplasty of right [id number] popliteal artery as well as balloon angioplasty of right below the knee popliteal artery. He was transferred to telemetry for
further management, and on 08/05/2024 he went for a right proximal superficial femoral artery to peroneal arterial bypass and was transferred back to the ICU postoperatively.
Assessment:
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
#s/p balloon angioplasty of right above the knee + below the knee popliteal artery (procedure date: 08/02/2024)
#s/p right proximal superficial femoral artery to peroneal artery bypass using ipsilateral nonreversed great saphenous vein + ligation and exclusion of popliteal artery aneurysm (POD #2)
#Acute anemia due to above
#Hyponatremia
#Former tobacco use (120-PY Hx --> smoked for 60 years, smoking 1PPD for 'many years' and as much as 2�2.5 PPD for 10 of those smoking years; quit smoking in September 2021)
#COPD/panlobular emphysema (GOLD class II via PFT from 02/04/2024 with significant bronchodilator response and severely reduced gas exchange capacity with DLco: 27%; DLco/VA: 30%)
#Chronic HFpEF
#History of aortic valve stenosis s/p TAVR
#History of iron deficiency anemia
Other active medical issues
-Acute diverticulitis, recent diagnosis, on antibiotics, transitioned to Augmentin
-Known history of heart failure with reduced ejection fraction, with most recent TTE on 08/04/2024 showing preserved LVEF at 50-55% with normal RV size and function, and peak/mean gradient across AV of 15/7 mmHg, respectively
-History of aortic stenosis, s/p TAVR
-Diabetes mellitus type II
-Coronary artery disease
-Hyperlipidemia
Plan:
Postoperative surgical intensive care unit monitoring
Supplemental oxygen as needed to maintain SpO2 88-95%
prn nebulized bronchodilators � not currently bronchospastic; at home he takes DuoNebs prn as he does not feel a benefit from taking inhalers
Incentive spirometry encouraged 10x per hour for at least 4 hrs a day
Aspiration precautions
Pain control
Continue with Augmentin given recent diagnosis of sigmoid acute diverticulitis seen on CTA abdominal aorta on 07/31/2024 --> recommend to complete at least 7-10 days total of antibiotics
UA on 08/05/2024 showed 6�10 urine WBC with few urine bacteria and +1 leukocyte esterase --> UCx shows NGTD
Neuro and vascular checks per protocol
Maintain MAP>65
Replete electrolytes with K>4, Mg>2
Maintain euglycemia with goal BG 140-180
Vascular surgery following-correspondence and operative notes reviewed
Transfuse blood products as needed to keep Hb>7g/dL, and plt>50k (given post-operative status)
Continue follow-up with pulmonary office as an outpatient; he does qualify for annual LDCT chest per [facility]PSTF, however may not qualify per Medicare; discuss this as an outpatient with Dr. Manjarrez (of note, LDCT chest from 08/23/2023 did not show any
concerning nodule or mass)
DVT prophylaxis (Eliquis)
Early nutrition
Early mobilization
Patient being prepared to be downgraded to telemetry today. No additional recommendations at this time. [facility]/Pulmonary service will now sign off. Outpatient follow-up with Dr. Dewitt. Thank you for allowing us to be involved in the care
of this patient. Please reconsult if there are any additional questions/concerns, or if patient's respiratory status deteriorates.
Data:
CTA abdominal aorta with runoff 07/31/2024:
There is significant diffuse atherosclerotic disease with calcification.
There is occlusion of the distal right SFA. On delayed images, minimal contrast opacification within the lumen of the right popliteal artery. There does appear to be three-vessel runoff within the right calf, somewhat limited evaluation because of
severe calcification.
No evidence for occlusion of the left arterial circulation.
Aneurysm of the right popliteal artery. Aneurysm of the left distal SFA.
In the right pelvis, CT findings highly suggestive of diverticulitis involving the sigmoid colon. No evidence of abscess or free intraperitoneal air.
Total time spent today was 59 minutes for this encounter. Time includes reviewing laboratory test/imaging results, reviewing pertinent medical records, obtaining and reviewing medical history, performing an appropriate exam, ordering medications,
tests and procedures. Time also includes documentation of this encounter, coordinating patient care and communicating with other healthcare professionals. Total time does not include separately billed tests performed on this date of service.
Subjective Dataa
Subjective Data
Date of Service:
Date of Service: August 07, 2024
Chief Complaint: [facility] Follow Up
Subjective:
Patient was seen and evaluated today at bedside. Still has pain on the right side of his inner thigh. FLY drains in place (x 2) along his RLE. Heart rate 81, BP 107/68 and saturating 96% on room air. He denies SOB, CP, BLUM, nausea, vomiting,
fevers or chills.
Review of Systems
General: Other (Negative unless mentioned above)
Objective Data
Data Reviewed
Vital Signs / I&O / Oxygen:
Vital Signs
Temp Pulse Resp BP Pulse Ox
98.2 F 80 15 125/74 95
08/07/24 08:00 08/07/24 08:50 08/07/24 06:00 08/07/24 08:50 08/07/24 09:27
Intake and Output
08/06/24 08/07/24 08/08/24
06:59 06:59 06:59
Intake Total 1720 / 1805 860 / 860
Output Total 1181 / 1331 3460 / 3460
Balance 539 / 474 -2600 / -2600
SaO2 95
Nasal Cannula flow liters per 2
minute
Physical Exam
General: Respiratory Distress (negative), Comfortable, Pain (Along medial right lower extremity to palpation or movement), Chills (negative) and Sweats (negative)
HEENT: Normocephalic and Anicteric
Cardiovascular: S1-S2, Rub (negative) and Peripheral Edema (Trace lower extremity edema bilaterally)
Respiratory: Clear, Wheeze (negative), Crackles (negative), Rhonchi (negative), Non-Labored Respirations and Other (Greatly diminished breath sounds bilaterally)
GI: Soft, Non Distended, Non Tender and Normal Bowel Sounds
Neurology: AO x 3 and Tremors (negative)
Skin: Warm, Dry, Cyanosis (negative), Jaundice (negative) and Other (Bandage across medial right lower extremity; FLY drains x 2 along RLE with serosanguineous fluid in bulb)
Labs/Micro/Reports
Lab Data
08/07/24 04:16
08/07/24 04:15
Microbiology
08/05/24 00:34 Urine Urine Culture - Final
NO GROWTH
[2024-08-07] MEDS: RANEXA EXTENDED RELEASE 500 MG PO ×2 (08:49→21:06)
[2024-08-07] MEDS: FARXIGA 10 MG PO (08:49)
[2024-08-07] MEDS: LIPITOR 40 MG PO (08:50)
[2024-08-07] MEDS: ASPIR LOW (ENTERIC COATED) 81 MG PO (08:50)
[2024-08-07] MEDS: THERAGRAN 1 TABLET PO (08:50)
[2024-08-07] MEDS: TOPROL XL 12.5 MG PO ×2 (08:50→21:06)
[2024-08-07] MEDS: AUGMENTIN 875 MG/125 MG 1 TABLET PO ×2 (08:50→21:06)
[2024-08-07] MEDS: ELIQUIS 5 MG PO ×2 (08:50→21:06)
[2024-08-07] MEDS: NOVOLOG FLEXPEN-HIGH RESISTANCE 2 UNITS SC ×2 (08:51→13:05)
[2024-08-07] MEDS: VITAMIN C 1000 MG PO (08:51)
--- NOTE | 2024-08-07 09:05 | W.PN.CD ---
Today's Communication / Plan
-
Brief SVT possible PAT on monitor asymptomatic continue metoprolol and monitor on telemetry.
Patient with some relatively blood low low blood pressures with systolics in the 90s overnight but improved this morning continue to monitor
Patient's main complaint is postoperative leg discomfort. Management directed by vascular surgery
Impression / Plan
-
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
admitted with leg pain. Patient underwent thrombolysis of right lower extremity occluded popliteal and SFA. Cardiology consulted for preprocedural cardiac evaluation for possible lower extremity bypass surgery. The patient has no active cardiac
symptoms/complaints; he denies chest pain, shortness of breath, or palpitations.
PAD
-Severe PAD with right lower ext critical limb ischemia s/p balloon angioplasty 08/02/24
-s/p Right proximal SFA to peroneal artery bypass using ipsilateral SVG and Ligation and exclusion of popliteal artery aneurysm - 08/05/24
Cardiomyopathy.
-Improved based on most recent echo
-echocardiogram 08/04/24: Compared to prior on October 31, 2022, on [id number] comparison LVEF has improved now approximately 50-55%, previously 30-35%.
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
-Will continue to follow.
CAD (PACKAGING CLERK of mid RCA and OM1; no stents):
-Patient denies any anginal symptoms.
-Continue aspirin, atorvastatin, metoprolol succinate, ranolazine.
Chronic HFrEF/ICM
- Previously EF 30-35% - now improved to 50%
-Compensated on examination.
-Continue metoprolol succinate, dapagliflozin:
-Patient was on lisinopril prior to admission which is held due to blood pressure. Spironolactone also on hold
VT s/p St Dylan ICD:
-Currently stable.
-Continue metoprolol succinate.
.
SVT. Brief asymptomatic SVT possible PAT. Continue metoprolol and monitor
TAVR (09/28/22):
-Clinically stable.
NIDDM:
-Management as per primary team.
COPD with continued cigarette use:
-Patient smokes approximately 1 pack/week of cigarettes.
-Counseled today on the importance of smoking cessation.
Hyponatremia and hyperkalemia
-Hyperkalemia resolved
-Hyponatremia sodium 131. Continue to monitor
Physical Exam
Vital Signs/Labs
Vital Signs
Temp Pulse Resp BP Pulse Ox
98.2 F 80 15 125/74 96
08/07/24 08:00 08/07/24 08:50 08/07/24 06:00 08/07/24 08:50 08/06/24 20:00
08/06/24 08/07/24 08/08/24
06:59 06:59 06:59
Actual Weight 95.4 kg 95 kg
08/07/24 04:16
08/07/24 04:15
PT 15.5 Sec (11.4-14.6) H 08/06/24 04:57
INR 1.20 08/06/24 04:57
APTT 30.3 Sec (23.4-35.0) 08/06/24 04:57
Magnesium 2.0 mg/dl (1.6-2.3) 08/02/24 03:11
Physical Exam
Constitutional: No acute distress
Cardiovascular: Rhythm & rate is regular
Respiratory: Wheeze Absent
GI: Soft and Non tender
Neuro/Psych: Alert
Other: Other (Right lower extremity postop. Drain intact no edema on left)
Data Reviewed
-
Date of Service: August 07, 2024
Medical Decision Making: Reviewed Test Results
X-Ray/CT/US/MRI/NUC/PET: Report Reviewed by me
Labs: Labs Reviewed by me
--- NOTE | 2024-08-07 09:08 | W.PN.HOSP.TC ---
Today's Communication/Plan
-
transfer to [address] [place] [address]
PT/OT
Assessment / Plan
Assessment / Plan
Assessment:
Acute right lower extremity ischemia - due to distal right SFA occlusion noted on CTA. Associated right popliteal artery aneurysm, aneurysm of the left distal SFA.
- s/p thrombolysis and arteriogram of right lower extremity 08/01
- went back to OR for subacute right lower extremity ischemia. s/p balloon angioplasty of right popliteal artery above and below the knee 08/02
- s/p R GSV harvest, R SFA to peroneal bypass using non-reversed GSV, exclusion of popliteal aneurysm 08/05
- Vascular following
- continue Eliquis (90 day supply at discharge)
- drain care per Vascular
- transfer to [facility]
Acute uncomplicated sigmoid diverticulitis
- continue Augmentin, day 10/04
abnormal UA
- urine culture negative
Chronic heart failure reduced EF �stable.
- continue metoprolol succinate, spironolactone, dapagliflozin
- Echo: Normal appearing LV size with low normal systolic function and without obvious wall motion abnormalities. LVEF is approximately 50-55%. No LVH. Normal right ventricular size and function. Normally functioning 29mm Nataly TAVR - Peak
gradient 15mmHg/Mean gradient 7mmHg - no aortic regurgitation is seen. Mild tricuspid regurgitation. Estimated pulmonary artery pressure of 35 mmHg assuming a right atrial pressure of 3 mmHg. Compared to prior on October 31, 2022, on [id number]
comparison LVEF has improved now approximately 50-55%, previously 30-35%.
Aortic stenosis - status post TAVR.
Tobacco dependence - highly recommend abstinence. Discussed with patient and .
History of NSVT
DM2 without hyperglycemia - hemoglobin A1c 7.4%. Uses Jardiance at home. Currently on insulin sliding scale. Glucoses are controlled. Resume Jardiance.
COPD without exacerbation
CAD
- continue aspirin, atorvastatin, metoprolol succinate, ranolazine
Hyperlipidemia -Lipitor.
hx of VT s/p ICD
DVT ppx: Eliquis
Code: Full
Anticipated Discharge: > 48 hours
Subjective/Interval History
-
Date of Service: August 07, 2024
denies any complaints
Objective Data
-
Labs:
Laboratory Results
08/07/24 08/07/24
04:15 04:16
WBC 10.3
Hgb 11.6 L
Hct 34.0 L
Plt Count 169
Sodium 131 L
Potassium 4.7
Chloride 101
Carbon Dioxide 24
BUN 28 H
Creatinine 0.8
Glucose 181 H
Calcium 9.0
Vital Signs:
Vital Signs
Temp Pulse Resp BP Pulse Ox
98.2 F 80 15 125/74 96
08/07/24 08:00 08/07/24 08:50 08/07/24 06:00 08/07/24 08:50 08/06/24 20:00
I&O
08/06/24 08/07/24 08/08/24
06:59 06:59 06:59
Intake Total 1720 / 1805 860 / 860
Output Total 1181 / 1331 3460 / 3460
Balance 539 / 474 -2600 / -2600
Physical Exam
-
General: No Apparent Distress
HEENT: Normocephalic and Atraumatic
Respiratory: Negative Wheezes
Cardiac: Regular Rhythm and S1/S2
GI: Soft
Genito-urinary: No Costovertebral Tender
Musculoskeletal: No Edema
Neuro: AO x 3
Hematologic / Lymphatic: No Lymphadenopathy
Psych: Calm
Data Reviewed
-
Total Time Spent with Patient (in minutes): 41
Labs: Labs Reviewed by me
[2024-08-07 12:02] LABS: Glucose - Point of Care 186 mg/dl (70-99)
--- NOTE | 2024-08-07 16:13 | CM ---
Patient seen at bedside
transferred to [facility] today
PT rec HH
Patient declines HH - request outpatient PT/OT at [facility]
will need script upon discharge
PLAN: home when medically stable, outpatient PT/OT requested, declined HH
[2024-08-07 16:52] LABS: Glucose - Point of Care 143 mg/dl (70-99)
[2024-08-07] MEDS: NOVOLOG FLEXPEN-LOW RESISTANCE SC (16:58)
[2024-08-07] MEDS: GLUCOPHAGE 500 MG PO (17:14)
--- NOTE | 2024-08-07 18:28 | PTCARENOTE ---
Received patient from ICU via stretcher around 1435 in stable condition. Patient oriented to room. Right leg with dressing intact and [address] draining sanguinous drainage[address] Pulse by doppler. Call russ in reach.
[2024-08-07 21:31] LABS: Glucose - Point of Care 192 mg/dl (70-99)
[2024-08-07] MEDS: TYLENOL 650 MG PO (23:33)
[2024-08-08] VITALS (7 sets, daily range): BP systolic 101–135; BP diastolic 56–73; PULSE 90; O2SAT 95; BMI 26.1
[2024-08-08 07:25] LABS: Glucose - Point of Care 153 mg/dl (70-99)
[2024-08-08 08:02] LABS: Hematocrit 35.5 % (39.0-52.0); Mean Corp Hgb Conc. 33.8 g/dL (33.0-37.0); Mean Corpuscular Volume 91.7 fL (80.0-94.0); Platelet Count 172 10^3/uL (130-400); Red Blood Cell Count 3.87 10^6/uL (4.70-6.10); Red Cell Dist. Width 13.5 % (11.5-14.5); White Blood Cell Count 10.7 10^3/uL (4.8-10.8)
[2024-08-08] MEDS: THERAGRAN 1 TABLET PO (08:06)
[2024-08-08] MEDS: RANEXA EXTENDED RELEASE 500 MG PO ×2 (08:07→20:11)
[2024-08-08] MEDS: VITAMIN C 1000 MG PO (08:07)
[2024-08-08] MEDS: LIPITOR 40 MG PO (08:07)
[2024-08-08] MEDS: AUGMENTIN 875 MG/125 MG 1 TABLET PO ×2 (08:07→20:17)
[2024-08-08] MEDS: GLUCOPHAGE 500 MG PO ×2 (08:07→18:21)
[2024-08-08] MEDS: ELIQUIS 5 MG PO ×2 (08:07→20:11)
[2024-08-08] MEDS: ASPIR LOW (ENTERIC COATED) 81 MG PO (08:07)
[2024-08-08] MEDS: TOPROL XL 12.5 MG PO (08:07)
[2024-08-08] MEDS: NOVOLOG FLEXPEN-LOW RESISTANCE 1 UNITS SC ×2 (08:08→18:21)
[2024-08-08] MEDS: FARXIGA 10 MG PO (08:08)
[2024-08-08 08:41] LABS: Blood Urea Nitrogen 24 mg/dl (9-20); Calcium 8.9 mg/dl (8.4-10.2); Carbon Dioxide 27 mmol/L (22-30); Chloride 98 mmol/L (98-107); Estimated Creatinine Clearance 91 ml/min; Glucose 158 mg/dl (70-99); Potassium 4.4 mmol/L (3.5-5.1); Sodium 133 mmol/L (135-145); eGFR > 60.00
--- NOTE | 2024-08-08 10:19 | W.PN.VS ---
Today's Communication / Plan
-
Discussed with Dr. Ovalle
Assessment/Plan
-
Assessment: 78 year old male status post thrombolysis right lower extremity occluded popliteal and SFA. Angioplasty of popliteal artery as well. POD#3 RLE SFA to peroneal bypass
Plan:
PT/Ambulate
Keep drains, patient drain education
I placed new Aquacel dressings to lower extremity incisional site this can stay on through the and be removed Sunday.
Smoking cessation education
Encourage incentive spirometry
Okay for discharge from vascular standpoint
Subjective Data
-
Date of Service: August 08, 2024
Patient seen at bedside this a.m. Patient has no complaints at this time. No events overnight. Resting comfortably in bed
Objective Data
-
Vital Signs
Temp Pulse Resp BP Pulse Ox
98.3 F 88 16 105/63 96
08/08/24 07:51 08/08/24 07:51 08/08/24 07:51 08/08/24 07:51 08/08/24 07:51
Intake and Output
08/07/24 08/08/24 08/09/24
06:59 06:59 06:59
Intake Total 860 / 860 960 / 960
Output Total 3460 / 3460 2245 / 2245
Balance -2600 / -2600 -1285 / -1285
Intake:
Oral fluids 690 / 690 960 / 960
IV fluids (Total) 170 / 170
Heparin 10 / 10
Normosol 0 / 0
nss 160 / 160
IV piggybacks 0 / 0
Output:
Drain Output (Total) 110 / 110 95 / 95
Right Leg Doc-Anderson A 35 / 35 55 / 55
Right Leg Doc-Anderson B 75 / 75 40 / 40
Vasquez Canales 400 / 400
Urine, Voided 2950 / 2950 2150 / 2150
Lab Results
08/08/24 06:21
08/08/24 06:21
Calcium 8.9 mg/dl (8.4-10.2) 08/08/24 06:21
Phosphorus 4.0 mg/dl (2.5-4.5) 08/02/24 03:11
Magnesium 2.0 mg/dl (1.6-2.3) 08/02/24 03:11
Total Bilirubin 1.2 mg/dl (0.2-1.3) 08/02/24 03:11
Direct Bilirubin 0.2 mg/dl (0.0-0.4) 08/02/24 03:11
AST 24 U/L (17-59) 08/02/24 03:11
ALT 17 U/L (0-50) 08/02/24 03:11
Alkaline Phosphatase 100 U/L (38-126) 08/02/24 03:11
Total Protein 5.4 g/dl (6.3-8.2) L 08/02/24 03:11
Albumin 3.0 g/dl (3.5-5.0) L 08/02/24 03:11
Physical Exam
-
Resting in bed comfortably
No tachycardia
No dyspnea on RA
ABD routund, non-tender, non-distended
Right LE dressings removed and replaced. Staple line well-approximated, no drainage noted, healing well
BL feet warm
FLY A 55
FLY B 40
--- NOTE | 2024-08-08 10:49 | W.PN.HOSP.TC ---
Today's Communication/Plan
-
setup VN
continue drain care
DC planning in 24 hours
Assessment / Plan
Assessment / Plan
Assessment:
Acute right lower extremity ischemia - due to distal right SFA occlusion noted on CTA. Associated right popliteal artery aneurysm, aneurysm of the left distal SFA.
- s/p thrombolysis and arteriogram of right lower extremity 08/01
- went back to OR for subacute right lower extremity ischemia. s/p balloon angioplasty of right popliteal artery above and below the knee 08/02
- s/p R GSV harvest, R SFA to peroneal bypass using non-reversed GSV, exclusion of popliteal aneurysm 08/05
- Vascular following
- continue Eliquis (90 day supply at discharge)
- drain care per Vascular - going home with drains therefore will order VN
Acute uncomplicated sigmoid diverticulitis
- continue Augmentin, day 11/04
abnormal UA
- urine culture negative
Chronic heart failure reduced EF �stable.
- continue metoprolol succinate, spironolactone, dapagliflozin
- Echo: Normal appearing LV size with low normal systolic function and without obvious wall motion abnormalities. LVEF is approximately 50-55%. No LVH. Normal right ventricular size and function. Normally functioning 29mm Nataly TAVR - Peak
gradient 15mmHg/Mean gradient 7mmHg - no aortic regurgitation is seen. Mild tricuspid regurgitation. Estimated pulmonary artery pressure of 35 mmHg assuming a right atrial pressure of 3 mmHg. Compared to prior on October 31, 2022, on [id number]
comparison LVEF has improved now approximately 50-55%, previously 30-35%.
Aortic stenosis - status post TAVR.
Tobacco dependence - highly recommend abstinence. Discussed with patient and .
History of NSVT
DM2 without hyperglycemia - hemoglobin A1c 7.4%. Uses Jardiance at home. Currently on insulin sliding scale. Glucoses are controlled. Resume Jardiance.
COPD without exacerbation
CAD
- continue aspirin, atorvastatin, metoprolol succinate, ranolazine
Hyperlipidemia -Lipitor.
hx of VT s/p ICD
DVT ppx: Eliquis
Code: Full
Anticipated Discharge: > 48 hours
Subjective/Interval History
-
Date of Service: August 08, 2024
resting comfortably no complaints
Objective Data
-
Labs:
Laboratory Results
08/08/24
06:21
WBC 10.7
Hgb 12.0 L
Hct 35.5 L
Plt Count 172
Sodium 133 L
Potassium 4.4
Chloride 98
Carbon Dioxide 27
BUN 24 H
Creatinine 0.8
Glucose 158 H
Calcium 8.9
Vital Signs:
Vital Signs
Temp Pulse Resp BP Pulse Ox
98.3 F 88 16 105/63 96
08/08/24 07:51 08/08/24 07:51 08/08/24 07:51 08/08/24 07:51 08/08/24 07:51
I&O
08/07/24 08/08/24 08/09/24
06:59 06:59 06:59
Intake Total 860 / 860 960 / 960
Output Total 3460 / 3460 2245 / 2245
Balance -2600 / -2600 -1285 / -1285
Physical Exam
-
General: No Apparent Distress
HEENT: Normocephalic and Atraumatic
Respiratory: Negative Wheezes
Cardiac: Regular Rhythm and S1/S2
GI: Soft and Nontender
Musculoskeletal: No Edema and Other (post-op drains)
Neuro: AO x 3
Hematologic / Lymphatic: No Lymphadenopathy
Psych: Calm
Data Reviewed
-
Total Time Spent with Patient (in minutes): 42
Labs: Labs Reviewed by me
[2024-08-08 11:50] LABS: Glucose - Point of Care 147 mg/dl (70-99)
[2024-08-08] MEDS: NOVOLOG FLEXPEN-LOW RESISTANCE SC (12:20)
--- NOTE | 2024-08-08 14:54 | CM ---
Chart reviewed. Met with pt
PT recs HH; Has drains - CM consult for VN - pt agrees with HH rec - no preference
[facility]erral [facility] to [facility] for HH needs
Confirmed with pt - has coupon for Eliquis
Given IMM
Plan - home with VN
--- NOTE | 2024-08-08 15:51 | W.PN.CD ---
Addendum entered and electronically signed by Chiki Marsh MD 08/08/24 17:10:
I saw and examined the patient.
The PROGRAM SUPPORT ASSISTANT's note was reviewed and I agree with the note.
Overall patient is feeling well today. Denies leg pain today. Drains remain intact. Still with episodes of SVT/PAT which are asymptomatic. Will titrate beta-merle as tolerated.
Original Note:
Today's Communication / Plan
-
-increase metoprolol dosing and follow telemetry
Impression / Plan
-
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
admitted with leg pain. Patient underwent thrombolysis of right lower extremity occluded popliteal and SFA. Cardiology consulted for preprocedural cardiac evaluation for possible lower extremity bypass surgery. The patient has no active cardiac
symptoms/complaints; he denies chest pain, shortness of breath, or palpitations.
PAD
-Severe PAD with right lower ext critical limb ischemia s/p balloon angioplasty 08/02/24
-s/p Right proximal SFA to peroneal artery bypass using ipsilateral SVG and Ligation and exclusion of popliteal artery aneurysm - 08/05/24
CAD (VACCINE MANAGER of mid RCA and OM1; no stents):
-Patient denies any anginal symptoms.
-Continue aspirin, atorvastatin, metoprolol succinate, ranolazine.
Chronic HFrEF/ICM
-Previously EF 30-35% - now improved to 50%
-Compensated on examination.
-Continue metoprolol succinate, dapagliflozin
-Patient was on lisinopril prior to admission which is held due to blood pressure. Spironolactone also on hold.
VT s/p St Dylan ICD:
-Currently stable.
-Continue metoprolol succinate.
SVT:
-Brief asymptomatic SVT possible PAT continues
-Increase metoprolol and monitor
TAVR (09/28/22):
-Clinically stable.
NIDDM:
-Management as per primary team.
COPD with continued cigarette use:
-Patient smokes approximately 1 pack/week of cigarettes.
-Patinent has been counseled on the importance of smoking cessation. Reviewed again today.
Hyponatremia and hyperkalemia
-Hyperkalemia resolved
-Hyponatremia: sodium 133- improved
-Continue to monitor
Physical Exam
Vital Signs/Labs
Vital Signs
Temp Pulse Resp BP Pulse Ox
98.1 F 101 16 121/63 97
08/08/24 11:39 08/08/24 11:39 08/08/24 11:39 08/08/24 11:39 08/08/24 11:39
08/07/24 08/08/24 08/09/24
06:59 06:59 06:59
Actual Weight 95 kg 94.846 kg
08/08/24 06:21
08/08/24 06:21
PT 15.5 Sec (11.4-14.6) H 08/06/24 04:57
INR 1.20 08/06/24 04:57
APTT 30.3 Sec (23.4-35.0) 08/06/24 04:57
Magnesium 2.0 mg/dl (1.6-2.3) 08/02/24 03:11
Physical Exam
Constitutional: No acute distress
EENT: Anicteric
Cardiovascular: Rhythm & rate is regular
Respiratory: Respiratory effort normal and Lungs clear to auscul.
Neuro/Psych: AO x 3
Data Reviewed
-
Date of Service: August 08, 2024
EKG: Other (tele SR)
[2024-08-08 17:07] LABS: Glucose - Point of Care 163 mg/dl (70-99)
[2024-08-08] MEDS: TOPROL XL 25 MG PO (20:22)
[2024-08-08 21:53] LABS: Glucose - Point of Care 204 mg/dl (70-99)
[2024-08-09 03:10] VITALS: BP 97/61
--- NOTE | 2024-08-09 07:05 | PTCARENOTE ---
pt was educated regarding J-P drains.
[2024-08-09 07:06] LABS: Hematocrit 35.7 % (39.0-52.0); Hemoglobin 11.9 g/dL (13.0-18.0); Mean Corp Hgb Conc. 33.3 g/dL (33.0-37.0); Mean Corpuscular Hgb 30.8 pg (27.0-31.0); Mean Corpuscular Volume 92.5 fL (80.0-94.0); Mean Platelet Volume 10.2 fL (7.4-10.4); Platelet Count 191 10^3/uL (130-400); Red Blood Cell Count 3.86 10^6/uL (4.70-6.10); Red Cell Dist. Width 13.6 % (11.5-14.5); White Blood Cell Count 10.3 10^3/uL (4.8-10.8)
[2024-08-09 07:25] VITALS: BP 104/54
[2024-08-09 07:30] LABS: Glucose - Point of Care 152 mg/dl (70-99)
[2024-08-09 07:31] LABS: Blood Urea Nitrogen 25 mg/dl (9-20); Carbon Dioxide 26 mmol/L (22-30); Chloride 100 mmol/L (98-107); Estimated Creatinine Clearance 91 ml/min; Glucose 156 mg/dl (70-99); Potassium 4.6 mmol/L (3.5-5.1); Sodium 133 mmol/L (135-145); eGFR > 60.00
[2024-08-09] MEDS: NOVOLOG FLEXPEN-LOW RESISTANCE 1 UNITS SC (08:33)
[2024-08-09] MEDS: FARXIGA 10 MG PO (08:34)
[2024-08-09] MEDS: ASPIR LOW (ENTERIC COATED) 81 MG PO (08:34)
[2024-08-09] MEDS: TOPROL XL 25 MG PO (08:34)
[2024-08-09] MEDS: THERAGRAN 1 TABLET PO (08:34)
[2024-08-09] MEDS: RANEXA EXTENDED RELEASE 500 MG PO (08:34)
[2024-08-09] MEDS: AUGMENTIN 875 MG/125 MG 1 TABLET PO (08:34)
[2024-08-09] MEDS: LIPITOR 40 MG PO (08:35)
[2024-08-09] MEDS: ELIQUIS 5 MG PO (08:35)
[2024-08-09] MEDS: VITAMIN C 1000 MG PO (08:35)
[2024-08-09] MEDS: GLUCOPHAGE 500 MG PO (08:35)
--- NOTE | 2024-08-09 09:25 | W.PN.VS ---
Today's Communication / Plan
-
Patient seen and examined at bedside with Dr. Phong Ovalle III, below plan reviewed with attending
Assessment/Plan
-
Assessment: 78 year old male status post thrombolysis right lower extremity occluded popliteal and SFA. Angioplasty of popliteal artery as well. POD#4 RLE SFA to peroneal bypass
Plan:
PT/Ambulate
JPB removed site CDI, will keep drain A patient drain education
Patient with increased edema at bilateral lower extremities, noted that patient takes Lasix PO on occasion at home, will give 1 p.o. dose
Smoking cessation education
Encourage incentive spirometry
Okay for discharge from vascular standpoint
Follow-up placed in discharge instructions
We will sign off please call with questions or concerns
Subjective Data
-
Date of Service: August 09, 2024
Patient seen and examined at bedside, offers no complaints. Reports very mild and well-managed postop surgical incision pain. Denies nausea, vomiting, fever, and chills. Reports complete resolution in right foot rest pain than initially brought
patient in to ED.
Objective Data
-
Vital Signs
Temp Pulse Resp BP Pulse Ox
98.0 F 80 18 104/54 95
08/09/24 07:25 08/09/24 08:34 08/09/24 07:25 08/09/24 08:34 08/09/24 07:25
Intake and Output
08/08/24 08/09/24 08/10/24
06:59 06:59 06:59
Intake Total 960 / 960 1400 / 1400
Output Total 2244 / 2244
Balance -1285 / -1285 -585 / -585
Intake:
Oral fluids 960 / 960 1400 / 1400
Output:
Drain Output (Total) 95 / 95 60 / 60
Right Leg Doc-Anderson A 55 / 55 55 / 55
Right Leg Doc-Anderson B 40 / 40 5 / 5
Urine, Voided 2149 / 2149 1924 / 1924
Other:
Number of approximated MODERATE 2
amounts of urine
Lab Results
08/09/24 06:19
08/09/24 06:19
Calcium 9.0 mg/dl (8.4-10.2) 08/09/24 06:19
Phosphorus 4.0 mg/dl (2.5-4.5) 08/02/24 03:11
Magnesium 2.0 mg/dl (1.6-2.3) 08/02/24 03:11
Total Bilirubin 1.2 mg/dl (0.2-1.3) 08/02/24 03:11
Direct Bilirubin 0.2 mg/dl (0.0-0.4) 08/02/24 03:11
AST 24 U/L (17-59) 08/02/24 03:11
ALT 17 U/L (0-50) 08/02/24 03:11
Alkaline Phosphatase 100 U/L (38-126) 08/02/24 03:11
Total Protein 5.4 g/dl (6.3-8.2) L 08/02/24 03:11
Albumin 3.0 g/dl (3.5-5.0) L 08/02/24 03:11
Physical Exam
-
Resting in bed comfortably
No tachycardia
No dyspnea on RA
ABD routund, non-tender, non-distended
Right LE dressings removed and replaced at upper pole near groin. Staple line well-approximated, no drainage noted, healing well, bilateral lower extremities with +1 edema
BL feet warm
[2024-08-09] MEDS: LASIX 20 MG PO (09:57)
[2024-08-09 11:03] LABS: Glucose - Point of Care 135 mg/dl (70-99)
[2024-08-09 11:05] VITALS: BP 105/65
[2024-08-09] MEDS: NOVOLOG FLEXPEN-LOW RESISTANCE SC (11:28)
--- NOTE | 2024-08-09 11:50 | W.PN.CD ---
Addendum entered and electronically signed by Chiki Marsh MD 08/09/24 11:56:
In addition to above which should be noted to the patient will remain on Eliquis 5 mg twice daily as prescribed
Original Note:
Today's Communication / Plan
-
Patient still with brief asymptomatic and now complex tachycardia as noted above. Previously suspected SVT versus PAT
Patient will have device follow-up in a short interval of time to assess burden of arrhythmia and will have long-term follow-up with Dr. Richardson.
Would continue current dosing of beta-merle. Considering episodes are brief and asymptomatic would not make adjustments. Otherwise stable for discharge
Impression / Plan
-
78 year old male (known to Dr. Vargas, his primary Senior Web Analyst) with CAD (REFERRAL CLERK of mid RCA and OM1; no stents), NSTEMI 08/2021, chronic HFrEF/ICM (EF 30-35%), VT s/p [employer] Dylan ICD, TAVR (09/28/22), NIDDM, COPD with continued cigarette use, and PAD
admitted with leg pain. Patient underwent thrombolysis of right lower extremity occluded popliteal and SFA. Cardiology consulted for preprocedural cardiac evaluation for possible lower extremity bypass surgery. The patient has no active cardiac
symptoms/complaints; he denies chest pain, shortness of breath, or palpitations.
PAD
-Severe PAD with right lower ext critical limb ischemia s/p balloon angioplasty 08/02/24
-s/p Right proximal SFA to peroneal artery bypass using ipsilateral SVG and Ligation and exclusion of popliteal artery aneurysm - 08/05/24
CAD (REFERRAL CLERK of mid RCA and OM1; no stents):
-Patient denies any anginal symptoms.
-Continue aspirin, atorvastatin, metoprolol succinate, ranolazine.
Chronic HFrEF/ICM
-Previously EF 30-35% - now improved to 50%
-Compensated on examination.
-Continue metoprolol succinate, dapagliflozin
-Patient was on lisinopril prior to admission which is held due to blood pressure. Spironolactone also on hold.
VT s/p [employer] ICD:
-Currently stable.
-Continue metoprolol succinate.
SVT:
-Brief asymptomatic SVT possible PAT continues
Tolerating medication increase still some brief episodes that are asymptomatic. Dose was just increased yesterday. Would continue to monitor on current dosing. Can assess overall burden with ICD check. Long-term management will be directed by
Dr. Vargas.
TAVR (09/28/22):
-Clinically stable.
NIDDM:
-Management as per primary team.
COPD with continued cigarette use:
-Patient smokes approximately 1 pack/week of cigarettes.
-Patinent has been counseled on the importance of smoking cessation. Reviewed again today.
Hyponatremia and hyperkalemia
-Hyperkalemia resolved
-Hyponatremia: sodium 133- improved
-Continue to monitor
Physical Exam
Vital Signs/Labs
Vital Signs
Temp Pulse Resp BP Pulse Ox
97.6 F 78 16 105/65 96
08/09/24 11:05 08/09/24 11:05 08/09/24 11:05 08/09/24 11:05 08/09/24 11:05
08/08/24 08/09/24 08/10/24
06:59 06:59 06:59
Actual Weight 94.846 kg
08/09/24 06:19
08/09/24 06:19
PT 15.5 Sec (11.4-14.6) H 08/06/24 04:57
INR 1.20 08/06/24 04:57
APTT 30.3 Sec (23.4-35.0) 08/06/24 04:57
Magnesium 2.0 mg/dl (1.6-2.3) 08/02/24 03:11
Physical Exam
Constitutional: No acute distress
Cardiovascular: Rhythm & rate is regular
Respiratory: Wheeze Absent and Rhonchi Absent
GI: Soft
Neuro/Psych: Alert
Data Reviewed
-
Date of Service: August 09, 2024
Medical Decision Making: Reviewed Test Results
Medical Tests (PFT, Pathology etc): Report Reviewed by me
Labs: Labs Reviewed by me
--- NOTE | 2024-08-09 11:53 | W.PN.HOSP.TC ---
Today's Communication/Plan
-
dc to home/VN
Assessment / Plan
Assessment / Plan
Assessment:
Acute right lower extremity ischemia - due to distal right SFA occlusion noted on CTA. Associated right popliteal artery aneurysm, aneurysm of the left distal SFA.
- s/p thrombolysis and arteriogram of right lower extremity 08/01
- went back to OR for subacute right lower extremity ischemia. s/p balloon angioplasty of right popliteal artery above and below the knee 08/02
- s/p R GSV harvest, R SFA to peroneal bypass using non-reversed GSV, exclusion of popliteal aneurysm 08/05
- Vascular following
- continue Eliquis (90 day supply at discharge)
- drain care per Vascular - going home with drains therefore will order VN
Acute uncomplicated sigmoid diverticulitis
- continue Augmentin, day 12/04
abnormal UA
- urine culture negative
Chronic heart failure reduced EF �stable.
- continue metoprolol succinate, spironolactone, dapagliflozin
- Echo: Normal appearing LV size with low normal systolic function and without obvious wall motion abnormalities. LVEF is approximately 50-55%. No LVH. Normal right ventricular size and function. Normally functioning 29mm Nataly TAVR - Peak
gradient 15mmHg/Mean gradient 7mmHg - no aortic regurgitation is seen. Mild tricuspid regurgitation. Estimated pulmonary artery pressure of 35 mmHg assuming a right atrial pressure of 3 mmHg. Compared to prior on October 31, 2022, on [id number]
comparison LVEF has improved now approximately 50-55%, previously 30-35%.
Aortic stenosis - status post TAVR.
Tobacco dependence - highly recommend abstinence. Discussed with patient and .
History of NSVT
DM2 without hyperglycemia - hemoglobin A1c 7.4%. Uses Jardiance at home. Currently on insulin sliding scale. Glucoses are controlled. Resume Jardiance.
COPD without exacerbation
CAD
- continue aspirin, atorvastatin, metoprolol succinate, ranolazine
Hyperlipidemia -Lipitor.
hx of VT s/p ICD
DVT ppx: Eliquis
Code: Full
More than 30 minutes spent in discharge including
Final examination of the patient
Summarizing hospital stay
Instructions for continuing care to all relevant caregivers
Preparation of discharge records, prescriptions, and referral forms
Total time spent (in minutes): 41
Anticipated Discharge: Today
Subjective/Interval History
-
Date of Service: August 09, 2024
no complaints at present
Objective Data
-
Labs:
Laboratory Results
08/09/24
06:19
WBC 10.3
Hgb 11.9 L
Hct 35.7 L
Plt Count 191
Sodium 133 L
Potassium 4.6
Chloride 100
Carbon Dioxide 26
BUN 25 H
Creatinine 0.8
Glucose 156 H
Calcium 9.0
Vital Signs:
Vital Signs
Temp Pulse Resp BP Pulse Ox
97.6 F 78 16 105/65 96
08/09/24 11:05 08/09/24 11:05 08/09/24 11:05 08/09/24 11:05 08/09/24 11:05
I&O
08/08/24 08/09/24 08/10/24
06:59 06:59 06:59
Intake Total 960 / 960 1400 / 1400
Output Total 2245 / 2245 1984
Balance -1285 / -1285 -585 / -585
Physical Exam
-
General: No Apparent Distress
HEENT: Normocephalic and Atraumatic
Respiratory: Negative Wheezes
Cardiac: Regular Rhythm and S1/S2
GI: Soft and Nontender
Genito-urinary: No Costovertebral Tender
Neuro: AO x 3
Psych: Calm
Data Reviewed
-
Total Time Spent with Patient (in minutes): 42
Labs: Labs Reviewed by me
--- NOTE | 2024-08-09 11:59 | W.DS.TRANS ---
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
-
Discharge Instructions:
Discharge Diagnosis/Procedures RLE ischemia s/p
s/p thrombolysis and arteriogram of right lower
extremity 08/01
s/p balloon angioplasty of right popliteal
artery above and below the knee 08/02
s/p R GSV harvest, R SFA to peroneal bypass
using non-reversed GSV, exclusion of popliteal
aneurysm 08/05
Acute uncomplicated sigmoid diverticulitis
Diet Diabetic, Carb Controlled,Low Cholesterol
Activity No strenuous activity
Driving Restrictions Not until seen by your Dr
Bathing Restrictions OK to Shower
Other Services VN
Instructions:
Stand-Alone Forms: DC Instr - Vascular OR
Changes to Home Medications: Yes
Discharge Medications:
DC Medications w/original date entered in [employer]
aspirin 81 mg tablet,delayed release 81 mg PO DAILY Blood clot prevention/tx 09/23/21
ranolazine 500 mg tablet,extended release,12 hr 500 mg PO BID Arrhythmia #120 tabs 09/23/21
ascorbic acid (vitamin C) 1,000 mg tablet (Vitamin C) 1,000 mg PO DAILY Supplement 08/15/22
furosemide 20 mg tablet 20 mg PO MOWEFR Fluid retention/Swelling 08/15/22
albuterol sulfate 90 mcg/actuation aerosol inhaler 1 puff inhalation R Q4HPRN PRN shortness of breath or wheezing 07/31/24
atorvastatin 40 mg tablet 40 mg PO DAILY High cholesterol 07/31/24
empagliflozin 25 mg tablet (Jardiance) 25 mg PO DAILY Diabetes 07/31/24
therapeutic multivitamin 1 tab PO DAILY Supplement 07/31/24
amoxicillin 875 mg-potassium clavulanate 125 mg tablet 1 tab PO Q12 #8 tabs 08/09/24
apixaban 5 mg tablet (Eliquis) 5 mg PO BID #60 tabs 08/09/24
metformin 500 mg tablet 500 mg PO BID@0800,1700 #60 tabs 08/09/24
metoprolol succinate 25 mg tablet,extended release 24 hr 25 mg PO BID #60 tabs 08/09/24
Home Medication Changes
BRADY+ Aldactone stopped
BB increased
Metformin started
Eliquis started
Pending Results: No
Total time spent discharging patient (in min): 41
== END 2024-08-09 14:42 | disposition home health service (06) | DRG 253 ==
LOC: 2 SOUTH 21:04
PROVIDERS: Hospitalist; Nurse Practitioner; Nurse Practitioner Family; Physician Assistant; Registered Nurse; Surgery Vascular Surgery; ADMITTING PHYSICIAN Hospitalist; ATTENDING PHYSICIAN Internal Medicine; CONSULT PHYSICIAN Internal Medicine; EMERGENCY PHYSICIAN Emergency Medicine; FAMILY PHYSICIAN Family Medicine; OTHER PHYSICIAN Surgery Vascular Surgery
PROC: 3E05317 Introduction of Other Thrombolytic into Peripheral Artery, Percutaneous Approach (ICD-10-PCS; 2024-08-01)
PROC: B41D1ZZ Fluoroscopy of Aorta and Bilateral Lower Extremity Arteries using Low Osmolar Contrast (ICD-10-PCS; 2024-08-01)
PROC: B41F1ZZ Fluoroscopy of Right Lower Extremity Arteries using Low Osmolar Contrast (ICD-10-PCS; 2024-08-02)
PROC: 047M3ZZ Dilation of Right Popliteal Artery, Percutaneous Approach (ICD-10-PCS; 2024-08-02)
PROC: 041K09M Bypass Right Femoral Artery to Peroneal Artery with Autologous Venous Tissue, Open Approach (ICD-10-PCS; 2024-08-05)
DX: E11.51 Type 2 diabetes mellitus with diabetic peripheral angiopathy without gangrene (principal); E87.1 Hypo-osmolality and hyponatremia; I47.10 Supraventricular tachycardia, unspecified; I47.20 Ventricular tachycardia, unspecified; I50.22 Chronic systolic (congestive) heart failure; K57.32 Diverticulitis of large intestine without perforation or abscess without bleeding; I70.221 Atherosclerosis of native arteries of extremities with rest pain, right leg; E87.5 Hyperkalemia; R82.998 Other abnormal findings in urine; D50.9 Iron deficiency anemia, unspecified; I25.10 Atherosclerotic heart disease of native coronary artery without angina pectoris; I11.0 Hypertensive heart disease with heart failure; I72.4 Aneurysm of artery of lower extremity; D72.829 Elevated white blood cell count, unspecified; E78.00 Pure hypercholesterolemia, unspecified; F17.210 Nicotine dependence, cigarettes, uncomplicated; I74.3 Embolism and thrombosis of arteries of the lower extremities; I49.5 Sick sinus syndrome; J44.9 Chronic obstructive pulmonary disease, unspecified; I70.0 Atherosclerosis of aorta; I25.5 Ischemic cardiomyopathy; Z95.2 Presence of prosthetic heart valve; Z95.810 Presence of automatic (implantable) cardiac defibrillator; I25.2 Old myocardial infarction; Z79.84 Long term (current) use of oral hypoglycemic drugs; Z79.82 Long term (current) use of aspirin
CPT/HCPCS: 35566; 36247; 37214; 37224; 37618; 75625; 75635; 75716; 80048; 80053; 81003; 81015; 82248; 82962; 83036; 83735; 84100; 85014; 85018; 85025; 85027; 85049; 85384; 85610; 85730; 86850; 86900; 86901; 87086; 93005; 93306; 93922; 93925; 93970; 94640; 96374; 97116; 97162; 97164; 97166; 97530; 99285; C1725; C1751; C1760; C1769; C1894; J2997; Q9967

== ENCOUNTER 2024-09-04 16:25 | Inpatient (IN) | payer MEDICARE, OTHER, SELFPAY ==
[2024-09-04] VITALS (23 sets, daily range): BP systolic 83–127; BP diastolic 40–107
--- NOTE | 2024-09-04 12:19 | ED.GENMED ---
History of Present Illness
General
Chief Complaint: Vascular Symptoms
Source: patient and spouse
Exam Limitations: none
Time Seen by Provider: 09/04/24 12:12
Nursing documentation reviewed up to this point in time: agreed with
History of Present Illness
History of Present Illness:
The patient is a 78-year-old male with past ministry of significant vascular disease heart disease COPD, diabetes presenting to the emergency department today with concerns of left foot numbness which started yesterday had recent bypass surgery to
the right leg 1 month ago. Symptoms started in the middle of the night last night with significant pain to the right lower extremity. This is progressed to numbness now no longer ongoing pain. Was sent in by Dr. Ovalle's office (Vascular).
Past History
Past History
ED Past Medical History: COPD, NIDDM, HI and Other (PNA, Renal calculus, Anemia, )
ED Past Surgical History: Cardiac (Pacemaker/ Defib), Orthopedic (Right ankle screws and plate) and Other (Pilonidal cyst removal)
Social History
Tobacco: Former smoker
Alcohol: None
Personal:
Living: alone
Employment: Retired
Family History
Family History: CAD
Review of Systems
Review of Systems
Allergies reviewed?: Yes
All Other Systems: ROS reviewed and negative except as documented in HPI and ROS
Phy Exam
Physical Exam
Physical Exam:
GENERAL: Alert , in no apparent distress
EYE: pupils equal and reactive
NECK: Supple, no significant adenopathy.
ENT: o/p clr, mmm.
CARDIAC: Regular rate and rhythm .
LUNGS: Clear breath sounds bilaterally, no acute respiratory distress, no wheezes/rales/rhonchi
ABDOMEN: Soft, without focal tenderness, no r/g, no cvat
NEUROLOGICAL: Alert and oriented, no focal neuro deficits
SKIN: Warm and dry, skin intact.
MUSCULOSKELETAL: Edema to the right lower extremity from the mid thigh distally. Unable to palpate dorsalis pedis or posterior tibialis pulses. No specific tenderness to palpation to the right lower extremity
PSYCH: Normal and appropriate interaction.
Course
Orders/Labs/Results
Orders:
Orders
09/04/24 Lunch
NPO
Allow oral meds: Yes
Allow clear liquids: No
09/04/24 12:35
Type+Screen Stat
CT Abd Aorta Angio W/ Run Off Stat
Comment:
Reason For Exam: concern for RLE bypass occlusion
BMP [Basic Metabolic Panel] Stat
CBC/No Diff [Complete Blood Count/No Diff] Stat
PT/INR [Prothrombin Time] Stat
PTT Stat
09/04/24 14:17
Fentanyl Citrate/Pf [Sublimaze] 100 mcg .ROUTE .STK-MED ONE
09/04/24 14:18
Midazolam HCl [Versed] 2 mg .ROUTE .STK-MED ONE
Abnormal Lab Results
09/04/24
12:35
RBC 4.49 L 10^6/uL
(4.70-6.10)
Hgb 12.7 L g/dL
(13.0-18.0)
MCHC 31.1 L g/dL
(33.0-37.0)
PT 16.7 H Sec
(11.4-14.6)
Glucose 124 H mg/dl
(70-99)
09/04/24 12:35
09/04/24 12:35
Vital Signs
Initial and Last Documented VS:
Initial Vital Signs
Temp Pulse Resp BP Pulse Ox
97.7 F 83 18 127/107 97
09/04/24 11:48 09/04/24 11:48 09/04/24 11:48 09/04/24 11:48 09/04/24 11:48
Last Documented Vital Signs
Temp Pulse Resp BP Pulse Ox
97.7 F 83 18 100/68 97
09/04/24 11:48 09/04/24 11:48 09/04/24 11:48 09/04/24 13:29 09/04/24 11:48
MDM/Problems Addressed
MDM/Problems Addressed:
78-year-old male presenting to the emergency department today with concerns of initially discomfort to the right lower extremity. Had recent revascularization with vascular surgery 1 month ago. Symptom started last night now numbness to the right
leg. Concern for arterial occlusion per vascular. Upon arrival here to the ER vital signs are normal. Patient seen by the vascular team CT angiogram was ordered for further assessment. CT angio showing occlusion to the right leg. Plan to take
immediately to revascularization with vascular. Stable throughout ER stay.
*Critical Care Note
Total Time (30-74mins, 75-104mins- exclusive of procedures): Not Applicable
ED Attending Note
-
Portions of this chart may have been created with voice recognition software.� Occasional wrong word or��sound alike� substitutions may have occurred due to the inherent limitations of voice recognition software.
Discharge Plan
Departure
Patient Disposition: Admit
Date of Disposition: 09/04/24
Time of Disposition: 14:26
Admit to: Med/Surg
Admit to doctor: Geo
Presentation/result/management discussed w/ accepting MD/DO: Hospitalist
Patient with high blood pressure during this ER visit?: No
Condition: Good
Covid-19: Not Applicable
Discharge Problem:
Arterial occlusion, lower extremity
Prescriptions:
No Action
aspirin 81 MG tablet,delayed release (DR/EC)
81 mg PO DAILY 0RF
ranolazine 500 MG tablet extended release 12 hr
500 mg PO BID Qty: 120 0RF
furosemide 20 mg Tablet
20 mg PO MOWEFR
ascorbic acid (vitamin C) [Vitamin C] 1,000 mg Tablet
1,000 mg PO DAILY
therapeutic multivitamin Tablet
1 tab PO DAILY
Jardiance 25 mg Tablet
25 mg PO DAILY
atorvastatin 40 MG tablet
40 mg PO DAILY
albuterol sulfate 90 mcg/actuation HFA aerosol inhaler
1 puff inhalation R Q4HPRN PRN (Reason: shortness of breath or wheezing)
amoxicillin-pot clavulanate 875-125 mg Tablet
1 tab PO Q12 Qty: 8 0RF
Eliquis 5 mg Tablet
5 mg PO BID Qty: 60 0RF
metformin 500 mg Tablet
500 mg PO BID@0800,1700 Qty: 60 0RF
metoprolol succinate 25 mg Tablet Extended Release 24 Hr
25 mg PO BID Qty: 60 0RF
Referrals:
Lamar Cancino MD [Family Provider] -
Interventions
Interventions:
*Risk Screen - Suicide Last Done: 09/04/24 11:48
*General Assessment Last Done: 09/04/24 12:48
*Neglect/Abuse Screening Last Done: 09/04/24 11:48
*ED- Fall Risk Assessment Last Done: 09/04/24 12:48
ED-Peripheral Vascular Assessment Last Done: 09/04/24 12:15
Discharge Date and Time
Print Language: PASHTO
--- NOTE | 2024-09-04 12:40 | CON.VAS ---
Addendum entered and electronically signed by Praful Darling MD 09/04/24 14:18:
Seen and examined in the emergency room with FARHAN Daniels. 78-year-old male well-known to the vascular service, extensive medical history as noted below. He had a recent right lower extremity SFA to peroneal artery bypass following successful
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 He continued his Eliquis and notes that he was compliant with it. He developed acute onset of right lower extremity pain starting in the evening last night. Significant pain initially. Now
he notes that it just feels numb or altered but no pain currently. Denies any weakness.
On exam/he is awake and alert. He is in no acute distress. Breathing is unlabored. Abdomen is soft. Right groin palpable femoral pulse but it is high in the groin. Nonpalpable distally. His foot with elevation pallor. There is capillary
refill present but is delayed. Motor function fully intact. He notes sensation is present when I examined him.
Urgent CT angiogram ordered and reviewed by me. His right lower extremity bypass appears patent. The origin has contrast opacifying it, but then it occludes. Runoff appears patent with flow into the peroneal visualized.
Plan/ Thrombosed right lower extremity bypass with acute limb ischemia. Sully 2A ischemia. Would favor angiogram with attempted thrombolysis. He is almost 1 month post op from his bypass. Therefore there is some bleeding risk, but given
that it has been that long it should be low. Would favor thrombolysis over open thrombectomy given patient's complex anatomy as well as recurrent surgery risks and a high risk patient. Discussed all this with patient. Discussed plan for catheter
directed thrombolysis and angiography. Discussed possibility of needing open thrombectomy. Discussed risk of limb loss without intervention. He understands all wishes to proceed. Urgent OR now.
Original Note:
Consultation
Consultation Request
Date/Time Consultation Performed: 09/04/24 1215
Requesting Provider: Maco Conklin PA-C
Performing Provider: Brinda Daniels NP-C for rPaful Darling MD
Reason for Consultation: RLE pain
Medical History
-
Chief Complaint: RLE pain
History of Present Illness:
This is a 70-year-old male with significant past medical history of CAD, diabetes, Hyperlipidemia, HFrEF, peripheral arterial disease, aortic stenosis status post TAVR, and nonsustained V. tach who presents to [facility] on 09/04/2024 for
acute onset of right lower extremity foot pain and coolness to extremity. Patient is known to our service as he was recently admitted from 07/31/24 -08/09/24 for thrombosed popliteal artery aneurysm causing acute limb threatening ischemia. At the time
he presented with reports of intermittent right foot pain accompanied with numbness. He underwent endovascular lysis and then RLE arterial bypass, see vascular surgical history below. Given BL popliteal artery aneurysms he was discharged on eliquis
5mg PO BID and aspirin 81mg PO daily. He presents today reporting acute onset of RLE foot pain that started last evening, he reports pain kept him up all night and then upon awakening this AM his right foot felt numb. He does endorse that his right
foot pain and numbness is similar to when he presented last time following the occlusion of his popliteal aneurysm. He denies motor weakness. Patient has no other complaints and denies fever, chills, shortness of breath, nausea, vomiting, and
diarrhea. He reports he has not missed a dose of his Eliquis and last took his anticoagulation this morning.
Past Vascular surgical history:
08/01/24- Selective catheterization of third order lower extremity artery, initiation of arterial thrombolysis (5 Hungarian by 40 cm Aye Owen lysis catheter), diagnostic aortobiiliac arteriogram, diagnostic right lower extremity arteriogram,
ultrasound-guided percutaneous access to the left common femoral artery Phong Ovalle III, MD
08/02/24- Right lower extremity arteriogram through existing sheath, balloon angioplasty of right [id number] popliteal artery with 5 mm angioplasty balloon, balloon angioplasty of right below the knee popliteal artery with 4 mm angioplasty
balloon, ramirez Perclose percutaneous suture closure left common femoral artery Praful Darling MD
08/05/24- Right proximal superficial femoral artery to peroneal artery bypass using ipsilateral nonreversed great saphenous vein, ligation and exclusion of popliteal artery aneurysm Phong Ovalle III, MD
Past Medical History
Past Medical History: CAD, NIDDM and Other (Hyperlipidemia, HFrEF, peripheral arterial disease, aortic stenosis status post TAVR, nonsustained V. tach)
Past Surgical History: Cardiac (L Upper Chest PPM/AICD for IVCD, TAVR) and Other (Right L3-4 ILESI, Skin CA removed from L side of Face, bilateral cataracts)
Social History
Tobacco: Smoker (patient smokes 2 packs a day for 60years and now smoking 0.25 pack per day)
Alcohol: None
Drug: None
Personal:
Living: With Family
Employment: Retired
Allergies / Home Medications
Allergy/AdvReac Type Severity Reaction Status Date / Time
No Known Drug Allergies Allergy NKDA Verified 09/04/24 11:53
�Medication �Instructions �Recorded �Confirmed �Type
aspirin 81 mg tablet,delayed 81 mg PO DAILY Blood clot 09/23/21 07/31/24 Rx
release prevention/tx
ranolazine 500 mg tablet,extended 500 mg PO BID Arrhythmia #120 tabs 09/23/21 07/31/24 Rx
release,12 hr
ascorbic acid (vitamin C) 1,000 mg 1,000 mg PO DAILY Supplement 08/15/22 07/31/24 History
tablet (Vitamin C)
furosemide 20 mg tablet 20 mg PO MOWEFR Fluid 08/15/22 07/31/24 History
retention/Swelling
albuterol sulfate 90 mcg/actuation 1 puff inhalation R Q4HPRN PRN 07/31/24 07/31/24 History
aerosol inhaler shortness of breath or wheezing
atorvastatin 40 mg tablet 40 mg PO DAILY High cholesterol 07/31/24 07/31/24 History
empagliflozin 25 mg tablet 25 mg PO DAILY Diabetes 07/31/24 07/31/24 History
(Jardiance)
therapeutic multivitamin 1 tab PO DAILY Supplement 07/31/24 07/31/24 History
amoxicillin 875 mg-potassium 1 tab PO Q12 #8 tabs 08/09/24 Rx
clavulanate 125 mg tablet
apixaban 5 mg tablet (Eliquis) 5 mg PO BID #60 tabs 08/09/24 Rx
metformin 500 mg tablet 500 mg PO BID@0800,1700 #60 tabs 08/09/24 Rx
metoprolol succinate 25 mg 25 mg PO BID #60 tabs 08/09/24 Rx
tablet,extended release 24 hr
Review of Systems
-
History Source: Patient
Constitutional: Reports No Symptoms
EENT: Reports No Symptoms
Respiratory: Reports No Symptoms
Cardiac: Reports No Symptoms
Vascular: Reports Leg Pain / Claudication, Numbness and Tingling
Abdomen/GI: Reports No Symptoms
: Reports No Symptoms
Musculoskeletal: Reports No Symptoms
Skin: Reports Other (coolness)
Neurological: Reports No Symptoms
Endocrine: Reports No Symptoms
Physical Exam
Vital Signs
Temp Pulse Resp BP Pulse Ox
97.7 F 83 18 127/107 97
09/04/24 11:48 09/04/24 11:48 09/04/24 11:48 09/04/24 11:48 09/04/24 11:48
Physical Exam
General: No Apparent Distress and Comfortable
HEENT: Normocephalic, Anicteric and Atraumatic
Cardiac: Negative JVD
GI: Soft, Non Tender and Non Distended
Musculoskeletal: No Edema
Skin: Other (right foot cooler than left, cap refill greater than 6 seconds)
Neuro: Awake and Other (RLE motor function intact)
Pulses: Bilateral Femoral: +1 (Absent right foot DP and PT doppler signal )
Assessment / Plan
-
Assessment: 78 year old male with right foot intermittent pain and numbness with absent DP/PT doppler signals, high suspicion for occluded RLE proximal superficial femoral artery to peroneal artery bypass
Plan:
Stat CT angio aorta with run off to evaluate bypass patency and peripheral arterial disease.
Stat labs
NPO in case he requires urgent OR
Plan reviewed with surgical attending Dr. Praful Darling
[2024-09-04 12:52] LABS: Hematocrit 40.8 % (39.0-52.0); Hemoglobin 12.7 g/dL (13.0-18.0); Mean Corp Hgb Conc. 31.1 g/dL (33.0-37.0); Mean Corpuscular Hgb 28.3 pg (27.0-31.0); Mean Corpuscular Volume 90.9 fL (80.0-94.0); Mean Platelet Volume 9.8 fL (7.4-10.4); Platelet Count 218 10^3/uL (130-400); Red Blood Cell Count 4.49 10^6/uL (4.70-6.10); White Blood Cell Count 6.1 10^3/uL (4.8-10.8)
[2024-09-04 12:56] LABS: Blood Urea Nitrogen 16 mg/dl (9-20); Calcium 9.6 mg/dl (8.4-10.2); Carbon Dioxide 28 mmol/L (22-30); Chloride 105 mmol/L (98-107); Glucose 124 mg/dl (70-99); Potassium 4.9 mmol/L (3.5-5.1); Sodium 141 mmol/L (135-145); eGFR > 60.00
[2024-09-04 13:12] LABS: PT 16.7 Sec (11.4-14.6)
[2024-09-04 13:13] LABS: APTT 34.2 Sec (23.4-35.0)
--- NOTE | 2024-09-04 14:21 | HPS.HSE ---
Family Physician
-
Family Physician: Lamar Cancino MD
Chief Complaint
-
Left lower extremities numbness
History of Present Illness
70-year-old male with past medical history for coronary artery disease, type 2 diabetes, hyperlipidemia, CHF, peripheral artery disease, aortic stenosis status post TAVR, nonsustained V. tach presented to us with left lower extremities numbness and
weakness since last night. He noticed his left lower extremity is very pale. 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 Patient denied any
headache, dizzy or syncope. Patient denied any fever, chills, chest pain, short of breath. Patient denied abdominal pain, nausea, vomiting or diarrhea. Patient denied dysuria, hematuria.
Patient was evaluated by vascular recommended angiogram with attempted thrombolysis
Medical History
Past Medical History
Past Medical History: Reports Other
Additional Past Medical History:
Lumbar stenosis, urinary calculi
Hyperlipidemia
Hypertension
Coronary artery disease
CHF
Aortic dilation
NSVT
PAD
Ischemic colitis
Thoracic aorta atherosclerosis
Type 2 diabetes
Skin cancer
COPD
MRI
A-fib
Past Surgical History: Reports Other
Additional Past Surgical History:
Ankle surgery skin cancer removed from left side of face
Pacemaker, ICD
Bilateral cataracts removed
Social History
Tobacco: Non-smoker
Alcohol: None
Drug: None
Personal:
Living: With Family
Family History
Family History: Not pertinent
Allergies / Home Medications
Allergies reflects when Allergies were last updated in [facility].
Home Medications with original date entered in [employer]
Allergy/Medication List:
Allergies
Allergy/AdvReac Type Severity Reaction Status Date / Time
No Known Drug Allergies Allergy NKDA Verified 09/04/24 11:53
Home Medications
aspirin 81 mg tablet,delayed release 81 mg PO DAILY Blood clot prevention/tx 09/23/21
ranolazine 500 mg tablet,extended release,12 hr 500 mg PO BID Arrhythmia #120 tabs 09/23/21
ascorbic acid (vitamin C) 1,000 mg tablet (Vitamin C) 1,000 mg PO DAILY Supplement 08/15/22
furosemide 20 mg tablet 20 mg PO MOWEFR Fluid retention/Swelling 08/15/22
albuterol sulfate 90 mcg/actuation aerosol inhaler 1 puff inhalation R Q4HPRN PRN shortness of breath or wheezing 07/31/24
atorvastatin 40 mg tablet 40 mg PO DAILY High cholesterol 07/31/24
empagliflozin 25 mg tablet (Jardiance) 25 mg PO DAILY Diabetes 07/31/24
therapeutic multivitamin 1 tab PO DAILY Supplement 07/31/24
amoxicillin 875 mg-potassium clavulanate 125 mg tablet 1 tab PO Q12 #8 tabs 08/09/24
apixaban 5 mg tablet (Eliquis) 5 mg PO BID #60 tabs 08/09/24
metformin 500 mg tablet 500 mg PO BID@0800,1700 #60 tabs 08/09/24
metoprolol succinate 25 mg tablet,extended release 24 hr 25 mg PO BID #60 tabs 08/09/24
Review of Systems
-
Constitutional: Reports No Symptoms
EENT: Reports No Symptoms
Respiratory: Reports No Symptoms
Cardiac: Reports No Symptoms
Abdomen/GI: Reports No Symptoms
: Reports No Symptoms
Musculoskeletal: Reports No Symptoms
Skin: Reports Other (Right lower extremities incision clean dry and intact)
Neurological: Reports No Symptoms
Endocrine: Reports No Symptoms
Hematologic/Lymphatic: Reports No Symptoms
Psych: Reports No Symptoms
Physical Exam
Vital Signs
Vital Signs
Temp Pulse Resp BP Pulse Ox
97.7 F 83 18 100/68 97
09/04/24 11:48 09/04/24 11:48 09/04/24 11:48 09/04/24 13:29 09/04/24 11:48
Physical Exam
General: Well Developed, Well Nourished and No Apparent Distress
HEENT: NormoCephalic, Moist mucous membranes and Atraumatic
Respiratory: Clear
Cardiac: S1/S2 and Regular Rhythm; No Murmur or Rub
GI: Soft, Non Tender, Non Distended and Normal Bowel Sounds; No Organomegaly
Rectal: Deferred by Provider
Musculoskeletal: No Clubbing, No Cyanosis and No Edema
Skin: Rash and Other (Right lower extremity sensation clean dry and intact, right upper thigh red and hard to touch)
Neuro: AO x 3 and Nonfocal/grossly intact
Psych: Calm
Laboratory Results
-
09/04/24 12:35
09/04/24 12:35
Laboratory Results
PT 16.7 Sec (11.4-14.6) H 09/04/24 12:35
INR 1.30 09/04/24 12:35
APTT 34.2 Sec (23.4-35.0) 09/04/24 12:35
Data Reviewed
-
Lab Data: Labs Reviewed by me
Impression/Plan
-
# Right leg arterial occlusion
# Recent lower right lower extremities ischemia due to distal right SFA occlusion associated with right popliteal artery aneurysm, aneurysm of the left distal SFA
-s/p thrombolysis and arteriogram of right lower extremity 08/01
went back to OR for subacute right lower extremity ischemia. s/p balloon angioplasty of right popliteal artery above and below the knee 08/02
- s/p R GSV harvest, R SFA to peroneal bypass using non-reversed GSV, exclusion of popliteal aneurysm 08/05
- Plan for OR today for angiogram with thrombolysis
-Hold Eliquis
- Vascular consulted
#Chronic heart failure reduced EF �stable.
- continue metoprolol succinate lasix, and ranexa
- Echo: Normal appearing LV size with low normal systolic function and without obvious wall motion abnormalities. LVEF is approximately 50-55%. No LVH. Normal right ventricular size and function. Normally functioning 29mm Nataly TAVR - Peak
gradient 15mmHg/Mean gradient 7mmHg - no aortic regurgitation is seen. Mild tricuspid regurgitation. Estimated pulmonary artery pressure of 35 mmHg assuming a right atrial pressure of 3 mmHg. Compared to prior on October 31, 2022, on [id number]
comparison LVEF has improved now approximately 50-55%, previously 30-35%.
#Aortic stenosis - status post TAVR.
#History of NSVT
#DM2 without hyperglycemia - hemoglobin A1c 7.4%. Uses Jardiance at home. Currently on insulin sliding scale. Glucoses are controlled.
#COPD without exacerbation
-nebs from home continue
#CAD
- continue aspirin, atorvastatin, metoprolol succinate, ranolazine
#Hyperlipidemia -Lipitor.
#hx of VT s/p ICD
#DVT ppx: SCD
Code: Full
--- NOTE | 2024-09-04 14:43 | W.PN.UPDATE ---
Addendum entered and electronically signed by Tesha Guardado MD 09/04/24 18:13:
*hold CONSTRUCTION CONTRACTOR Lasix in acute post-op setting
Original Note:
Update Note
Progress Note Update
This is an addendum to H&P written by ICE HOCKEY COACH Adele Wheeler
I saw and examined the patient.
The ICE HOCKEY COACH's note was reviewed and I agree with the note.
Comment:
Mr. Guzman Law is a 78 yo man with hx HFrEF, s/p TAVR, VT s/p AICD, tobacco dependence (quit one month ago), DM 2, COPD, CAD, recent admission 07/31-08/09/24 for RLE ischemic s/p thrombolysis, angioplasty and SFA to peroneal bypass on 08/05/24
presents to the ER complaining of right lower extremity pain found to have thrombosis with acute limb ischemia.
Triage VS: T 97.7, P 83, RR 18, BP 127/107, SpO2 97%
On exam patient is awake, alert, in no distress. Chest clear, abdomen soft. RLE without palpable distal pulse.
LABS: WBC 6.1, Hg 12.7, PLT 218, Na 141, K+ 4.9, CO2 28, Cr 0.7, Glucose 124, INR 1.3
CT Abd Aorta Angio W/ Run Off:
IMPRESSION:
1. The right proximal SFA bypass graft is occluded, as is the hopi right SFA. Reconstitution of the very distal aspect of the popliteal artery. Dominant outflow to the right foot is via the peroneal artery, with possible occlusion of the anterior
tibial artery and small caliber of the posterior tibial artery.
2. Multifocal stenoses within the left SFA, each estimated at 50-75%. Mild aneurysmal dilation of the left popliteal artery, with mural thrombus, measuring 1.5 cm in greatest orthogonal dimension. Infrapopliteal disease on the left.
3. Cholelithiasis without evidence of acute cholecystitis.
4. Emphysema.
5. Mild coronary arterial calcification. Please correlate with symptoms of and risk factors for coronary artery disease, with further workup as clinically appropriate.
Acute Limb Ischemia
Occluded proximal SFA bypass graft
-patient en route to OR now for angiogram and attempted thrombolysis
-NPO for OR
-hold CONSTRUCTION CONTRACTOR Eliqius
-post op plan per Vascular surgery
-CONSTRUCTION CONTRACTOR asa/statin
NIDDM
-hold CONSTRUCTION CONTRACTOR Metformin
-ISS
Remainder of plan per ICE HOCKEY COACH note
76 minutes spent on patient care
--- NOTE | 2024-09-04 15:52 | W.SUR.POST ---
Surgical Immediate Post Op
Note
Pre Op Diagnosis: Thrombosed RLE bypass graft
Post Op Diagnosis: same
Procedure Performed: RLE arteriogram, initiation of catheter directed thrombolysis
Primary Surgeon: Phong
Anesthesia: local and sedation
Estimated Blood Loss: <2cc
Fluids: see anesthesia flow sheet
Drains/Shunts: none
Specimens/Cultures: none
Doppler/Duplex/Angio (Y/N): Y
Complications: none
Operative Findings: Successful placement of catheter
--- NOTE | 2024-09-04 16:17 | OR.RPT ---
Operative Report
Operative Report
PROCEDURE DATE: 09/04/2024
Preoperative diagnosis: Acute limb ischemia right lower extremity with acute occlusion of bypass graft.
Postoperative diagnosis: Same
Procedure:
1. Duplex assisted cannulation of left common femoral artery.
2. Aortogram and pelvic angiogram.
3. Right lower extremity arteriogram with third order vessel catheterization of right peroneal artery via left common femoral artery puncture.
4. Initiation of catheter directed thrombolysis.
5. Supervision and interpretation.
Surgeon: Phong
Corn Crop Supervisor: None
Complications: None
Anesthesia: Local, sedation
Fluoroscopy:
11.7 min
61 mGy
16.22 Gy.cm2
Indications for procedure:
Recent thrombolysis of occluded popliteal artery aneurysm followed by staged SFA to peroneal artery bypass. Patient presented with symptoms of acute limb ischemia, confirmed on physical exam and CT scan imaging. Bypass graft occlusion.
Risk/benefit/alternatives of angiography and attempted catheter directed thrombolysis were discussed. Patient understood all wished to proceed.
Description of procedure:
Patient was identified, brought to the operating room. Placed on the table in the supine position. After the adequate administration of anesthesia, the patient was prepped and draped in the standard surgical fashion. A standard preoperative
timeout was undertaken and everybody was in agreement with the plan.
The left common femoral artery was accessed with a micropuncture kit under direct duplex ultrasound guidance. A 5 Irish sheath was then advanced over a 0.035 inch wire, and a campbell's hook catheter was advanced into the abdominal aorta.
Aortogram and pelvic angiogram was obtained. Findings as follows:
Infrarenal aorta: Extensive atherosclerotic plaque but patent with no significant stenosis
Right common iliac artery: Extensive atherosclerotic plaque but patent with no significant stenosis
Right external iliac artery: Extensive atherosclerotic plaque patent with no significant stenosis
Left iliac system not well-visualized.
Using a floppy angled hydrophilic wire, the right common femoral artery was cannulated and the catheter was advanced. Right lower extremity arteriogram was obtained. Findings as follows:
Common femoral artery: Patent with some luminal irregularities and atherosclerotic plaque. May be mild stenosis, possibly moderate distally at bifurcation.
Profunda femoris artery: Patent with possible mild to moderate stenosis at origin but otherwise patent with no significant stenosis.
Superficial femoral artery: Patent proximally with atherosclerotic plaque and luminal irregularities but no severe stenosis. Proximal nub of bypass graft visualized, but then completely occluded.
On very delayed imaging reconstituted flow could be seen in the peroneal artery distally.
At this point using a flopping of hydrophilic wire and cannulated the superficial femoral artery and then exchanged for a Storq wire over a glide catheter. Next I advanced an up and over 6 Irish sheath into the common femoral artery. The patient
was given 7000 units of intravenous heparin. Now using a flopping of hydrophilic wire and a CXI catheter I was able to cannulate the bypass graft. Initially my wire got held up in the proximal bypass graft. I had difficulty getting the catheter
into it as a result but was finally able to flip the catheter over the wire into the graft. Once I did this then I was able to pass the wire well distally and easily into the outflow peroneal artery. I passed the catheter and confirmed
angiographically that I was in the true lumen of the peroneal artery. I then exchanged back for a Storq wire. I then exchanged for a 5 Irish 50 cm infusion length infusion catheter (unfortunately we did not have 4 Irish catheters in that
length). This was advanced just into the peroneal artery distally and proximally in the proximal bypass graft at the point of occlusion. Satisfied with its positioning, I instilled 4 mg of tPA slowly through the infusion catheter. Next I secured
the catheter and the sheath, and applied dressings. tPA drip was connected to the catheter to run at 1 mg/h. Heparin infusion through the sheath at 500 units/h. Patient was transported to the ICU in stable condition.
The patient tolerated procedure well.
--- NOTE | 2024-09-04 16:31 | CON.INTV ---
Consultation
Consultation Request
Date/Time Consultation Requested: 09/04/24
Date/Time Consultation Performed: 09/04/24
Performing Provider: Demetrius
Reason for Consultation: ICU
Medical History
-
History of Present Illness:
Patient is a 78-year-old male with past medical history for CAD, type 2 diabetes, hyperlipidemia, CHF, peripheral artery disease, aortic stenosis status post TAVR, presenting to ER with right lower extremities numbness and weakness since last
night. He noticed his right lower extremity is very pale. 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 Patient was evaluated by vascular
and recommended angiogram with attempted thrombolysis. Patient underwent procedure today 09/04/24 urgently and postoperatively transferred to ICU for further management.
Past Medical History
Past Medical History: Other (see list below)
Family History
Family History: Reviewed & Not Pertinent
Allergies / Home Medications
Allergies
Allergy/AdvReac Type Severity Reaction Status Date / Time
No Known Allergies Allergy Verified 09/04/24 16:26
Home Medications
�Medication �Instructions �Recorded �Confirmed �Last Taken �Type
aspirin 81 mg tablet,delayed 81 mg PO DAILY Blood clot 09/23/21 09/04/24 07/31/24 Rx
release prevention/tx
ranolazine 500 mg tablet,extended 500 mg PO BID Arrhythmia #120 tabs 09/23/21 09/04/24 07/31/24 Rx
release,12 hr
ascorbic acid (vitamin C) 1,000 mg 1,000 mg PO DAILY Supplement 08/15/22 09/04/24 07/31/24 History
tablet (Vitamin C)
furosemide 20 mg tablet 20 mg PO MOWEFR Fluid 08/15/22 09/04/24 07/30/24 History
retention/Swelling
albuterol sulfate 90 mcg/actuation 1 puff inhalation R Q4HPRN PRN 07/31/24 09/04/24 Unknown History
aerosol inhaler shortness of breath or wheezing
atorvastatin 40 mg tablet 40 mg PO DAILY High cholesterol 07/31/24 09/04/24 07/31/24 History
empagliflozin 25 mg tablet 25 mg PO DAILY Diabetes 07/31/24 09/04/24 07/31/24 History
(Jardiance)
therapeutic multivitamin 1 tab PO DAILY Supplement 07/31/24 09/04/24 07/31/24 History
apixaban 5 mg tablet (Eliquis) 5 mg PO BID #60 tabs 08/09/24 09/04/24 Unknown Rx
metformin 500 mg tablet 500 mg PO BID@0800,1700 #60 tabs 08/09/24 09/04/24 Unknown Rx
metoprolol succinate 25 mg 25 mg PO BID #60 tabs 08/09/24 09/04/24 Unknown Rx
tablet,extended release 24 hr
Review of Systems
-
History Source: Patient
All other systems: Negative unless noted
Vitals / Labs / Diagnostic Testing
Vital Signs
Temp Pulse Resp BP Pulse Ox
97.7 F 83 18 100/68 97
09/04/24 11:48 09/04/24 11:48 09/04/24 11:48 09/04/24 13:29 09/04/24 11:48
Lab Data
09/04/24 12:35
Laboratory Results
09/04/24
12:35
PT 16.7 H
INR 1.30
APTT 34.2
Diagnostic Testing:
Physical Exam
-
HEENT: Normocephalic, Anicteric, Moist Mucous Membranes and Other (poor dentition)
Cardiovascular: S1/S2 and Regular Rhythm
Respiratory: Clear and Non-Labored Respirations
GI: Soft, Non Distended and Non Tender
Neurology: Awake, Alert, Oriented and No Motor Deficits
Skin: Warm, Dry and Other (redness on RLE/foot)
General: Comfortable, Pain and Other (NAD)
Assessment
-
Patient is a 78-year-old male with past medical history for CAD, type 2 diabetes, hyperlipidemia, CHF, peripheral artery disease, aortic stenosis status post TAVR, presenting to ER with right lower extremities numbness and weakness since last
night. He noticed his right lower extremity is very pale. 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 Patient was evaluated by vascular
and recommended angiogram with attempted thrombolysis. Patient underwent procedure today 09/04/24 urgently and postoperatively transferred to ICU for further management.
R LE critical limb ischemia with suspected thrombosed RLE bypass graft s/p RLE arteriogram, initiation of catheter directed thrombolysis 09/04/24
RLE numbness/weakness/pallor
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
Subacute right lower extremity limb ischemia with occlusion of distal SFA + popliteal artery with right lower extremity popliteal artery aneurysm s/p catheter directed thrombolysis (placed on 08/01/2024)
s/p balloon angioplasty of right above the knee + below the knee popliteal artery (procedure date: 08/02/2024)
s/p right proximal superficial femoral artery to peroneal artery bypass using ipsilateral nonreversed great saphenous vein + ligation and exclusion of popliteal artery aneurysm (POD #2)
Chronic hyponatremia
Former tobacco use (120-PY Hx --> smoked for 60 years, smoking 1PPD for 'many years' and as much as 2�2.5 PPD for 10 of those smoking years; quit smoking in September 2021)
COPD/panlobular emphysema
GOLD class II via PFT from 02/04/2024 with significant bronchodilator response and severely reduced gas exchange capacity with DLco: 27%; DLco/VA: 30%
Follows w/ [facility]
Chronic HFrEF/ICM (EF 30-35%)
History of aortic valve stenosis s/p TAVR09/28/22
History of iron deficiency anemia
History of acute diverticulitis, managed medically
Diabetes mellitus type II
CAD (LIABILITY CLAIMS EXAMINER of mid RCA and OM1; no stents), NSTEMI 08/2021
VT s/p [facility] [employer] ICD
Hyperlipidemia
HTN
Perianal Condyloma accuminata - excision and fulguration (1993)
Colonic polyps - Colonoscopy /w bx
Ureterovesical junction calculus - hospitalized (2001)
Renal calculi
Plan:
Patient is s/p arteriogram and lysis by vascular surgery service, POD #0
Continue observation following procedure
Follow neurovascular checks per protocol
Follow BP monitoring and parameters as set by primary team
Cardiac history noted--HF, HTN, CAD, VT post ICD
Resume home meds as able
Monitor on telemetry
Pain control per protocol
RASS goal 0
Prior history of pulmonary disease: COPD/former smoker
Prior CT/CXR reviewed indicating no acute disease, chronic emphysema
Resume home inhalers, denies active complaints
No indication for steroids
Prior PFTs for review--moderate obstruction, severe diffusion impairment, not on baseline O2 at home
Encouraged IS
Diet advancement per protocol
Aspiration precautions
GI prophylaxis if indicated for stress ulcer prevention in the critically ill
Creat at baseline, follow UO
Critical I/Os
Void trials
Replete electrolytes as needed
No signs/symptoms suspicious for infectious etiology at this time
Will observe off antibiotics for now
Follow temperatures/CBC
Hb and platelets postoperatively stable
DVT prophylaxis recommended if not contraindicated based on procedural history -- heparin SQ and mechanical SCDs
Encouraged OOB/PT/OT/ambulation once cleared by surgical team
We will follow
Diagnostic Data:
CT AP 09/04/24- 1. The right proximal SFA bypass graft is occluded, as is the [place] right SFA. Reconstitution of the very distal aspect of the popliteal artery. Dominant outflow to the right foot is via the peroneal artery, with possible occlusion
of the anterior tibial artery and small caliber of the posterior tibial artery.
2. Multifocal stenoses within the left SFA, each estimated at 50-75%. Mild aneurysmal dilation of the left popliteal artery with mural thrombus measuring 1.5 cm in greatest orthogonal dimension. Infrapopliteal disease on the left.
3. Cholelithiasis without evidence of acute cholecystitis.
4. Emphysema.
5. Mild coronary arterial calcification. Please correlate with symptoms of and risk factors for coronary artery disease, with further workup as clinically appropriate.
CTA abdominal aorta with runoff 07/31/2024: There is significant diffuse atherosclerotic disease with calcification. There is occlusion of the distal right SFA. On delayed images, minimal contrast opacification within the lumen of the right popliteal
artery. There does appear to be three-vessel runoff within the right calf, somewhat limited evaluation because of severe calcification. No evidence for occlusion of the left arterial circulation. Aneurysm of the right popliteal artery. Aneurysm of
the left distal SFA. In the right pelvis, CT findings highly suggestive of diverticulitis involving the sigmoid colon. No evidence of abscess or free intraperitoneal air.
LDCT 08/23/23- Resolution of small focal opacities in the lingula and left lower lobe in the interval since prior study. Areas of scarring and pattern of centrilobular type emphysema again identified. No discrete focal parenchymal mass/nodule.
Coronary artery calcifications and TAVR again seen.
ECHO 08/04/24- Normal appearing LV size with low normal systolic function and without obvious wall motion abnormalities. LVEF is approximately 50-55%. No LVH. Normal right ventricular size and function. Normally functioning 29mm Nataly TAVR - Peak
gradient 15mmHg/Mean gradient 7mmHg - no aortic regurgitation is seen. Mild tricuspid regurgitation. Estimated pulmonary artery pressure of 35 mmHg assuming a right atrial pressure of 3 mmHg.
Compared to prior on October 31, 2022, on [id number] comparison LVEF has improved now approximately 50-55%, previously 30-35%.
PFT 10/31/2018: FEV1 1.23 L 34%, FVC 2.9 L 58%, ratio 42. Post FEV1 1.99 L 54%. TLC 8.01 L 101%, RV/TLC 51, DLCO 40%--moderate obstruction, air trapping w/o hyperinflation, moderate diffusion impairment
-----
Critical Care time 45 mins -- The patient is admitted for acute critical illness for the treatment of vital organ failure and/or prevention of further life-threatening conditions. Total care includes time spent in review of history, physical exam,
medications, hemodynamic/ventilator parameters, laboratory data, imaging and discussion with house staff, pharmacy, respiratory therapy, audit consultant, and nursing.
[2024-09-04] MEDS: HEPARIN 25000 UNITS/250 ML ART SHEATH (16:46)
[2024-09-04 16:47] LABS: Glucose - Point of Care 121 mg/dl (70-99)
[2024-09-04] MEDS: CATHFLO/ACTIVASE 16 ML INF CATH ×2 (16:47→20:18)
[2024-09-04] MEDS: CATHFLO/ACTIVASE 16 MG INF CATH ×2 (16:47→20:18)
[2024-09-04] MEDS: NSS 1000 INF CATH (16:48)
[2024-09-04] MEDS: NSS 1000 IV (16:55)
[2024-09-04] MEDS: NOVOLOG FLEXPEN-LOW RESISTANCE SC (17:58)
[2024-09-04] MEDS: ANCEF 5 IV (17:59)
[2024-09-04 18:06] LABS: Glucose - Point of Care 126 mg/dl (70-99)
[2024-09-04 18:08] LABS: Hematocrit 36.6 % (39.0-52.0); Hemoglobin 11.6 g/dL (13.0-18.0); Mean Corp Hgb Conc. 31.7 g/dL (33.0-37.0); Mean Corpuscular Hgb 29.2 pg (27.0-31.0); Mean Corpuscular Volume 92.2 fL (80.0-94.0); Mean Platelet Volume 9.7 fL (7.4-10.4); Platelet Count 178 10^3/uL (130-400); Red Blood Cell Count 3.97 10^6/uL (4.70-6.10); White Blood Cell Count 5.5 10^3/uL (4.8-10.8)
[2024-09-04 18:20] LABS: INR 1.36; PT 17.3 Sec (11.4-14.6)
[2024-09-04 18:21] LABS: Fibrinogen 296 MG/DL (199-459)
[2024-09-04 18:23] LABS: APTT 124.2 Sec (23.4-35.0)
--- NOTE | 2024-09-04 19:32 | PTCARENOTE ---
1630-Received pt from Hostess Party Sales Representative.Pt is awake and alert.+ELLIOTT with sensation intact throughout.c/o right foot pain 5/10 described as vice like.Declines pain medication at this time.SR with 1st AVB noted.IVF infusing as ordered.Left groin sheath with
lysis catheter intact with Alteplase,NSS and Heparin as ordered.Left groin site is oozing and dressing reinforced.Dr Ye made aware.Decreased breath sounds bibasilar.O2 4l NC.POX 100% No BM.Ovalle draining yellow urine.Skin integrity as
documented.Right buttock intact with scar present from previous surgery.Pt's at bedside.Plan of care discussed and activity orders reinforced.
--- NOTE | 2024-09-04 20:30 | PTCARENOTE ---
Pt received start of shift, bedside handoff and assessment completed with outgoing RN. L groin site continuing to ooze moderate amount, notified Dr Ye. Pressure dressing placed over site as ordered. L DP and PT pulses present with doppler. R DP
and PT pulses absent with doppler. R foot pink, cool. Alteplase, NSS, and heparin gtts infusing as ordered. Ovalle draining clear yellow urine. Reinforced activity restrictions and plan of care with pt, pt verbalizes understanding.
[2024-09-04] MEDS: TOPROL XL PO (20:53)
[2024-09-04] MEDS: RANEXA EXTENDED RELEASE 500 MG PO (20:55)
[2024-09-04 21:41] LABS: Hematocrit 36.6 % (39.0-52.0); Hemoglobin 11.4 g/dL (13.0-18.0); Mean Corp Hgb Conc. 31.1 g/dL (33.0-37.0); Mean Corpuscular Hgb 28.3 pg (27.0-31.0); Mean Corpuscular Volume 90.8 fL (80.0-94.0); Mean Platelet Volume 10.1 fL (7.4-10.4); Platelet Count 184 10^3/uL (130-400); Red Blood Cell Count 4.03 10^6/uL (4.70-6.10); White Blood Cell Count 5.6 10^3/uL (4.8-10.8)
[2024-09-04 21:54] LABS: INR 1.29; PT 16.6 Sec (11.4-14.6)
[2024-09-04 21:55] LABS: APTT 39.5 Sec (23.4-35.0); Fibrinogen 311 MG/DL (199-459)
[2024-09-05] VITALS (50 sets, daily range): BP systolic 88–114; BP diastolic 42–70; BMI 26.5
[2024-09-05] LABS: Glucose - Point of Care 129 mg/dl (70-99)
--- NOTE | 2024-09-05 00:39 | PTCARENOTE ---
R PT and DP pulses continue to be absent with doppler. Pt denies any pain in RLE. Color and temperature of R foot remain unchanged from start of shift.
[2024-09-05] MEDS: CATHFLO/ACTIVASE 16 ML INF CATH ×3 (01:38→08:03)
[2024-09-05] MEDS: CATHFLO/ACTIVASE 16 MG INF CATH ×3 (01:38→08:03)
[2024-09-05] MEDS: ROXICODONE 5 MG PO ×2 (01:45→05:54)
--- NOTE | 2024-09-05 01:55 | PTCARENOTE ---
Pt c/o intermittent burning pain in R foot, ranging anywhere from 6-10. PRN radha - see MAR. R foot DP and PT pulses still absent, no change in color/temperature/movement.
[2024-09-05] MEDS: ANCEF 5 IV (02:05)
[2024-09-05] MEDS: DILAUDID 0.5 MG IV ×2 (03:41→07:53)
[2024-09-05 04:01] LABS: Hematocrit 35.1 % (39.0-52.0); Hemoglobin 10.8 g/dL (13.0-18.0); Mean Corp Hgb Conc. 30.8 g/dL (33.0-37.0); Mean Corpuscular Hgb 28.1 pg (27.0-31.0); Mean Corpuscular Volume 91.2 fL (80.0-94.0); Mean Platelet Volume 9.9 fL (7.4-10.4); Platelet Count 172 10^3/uL (130-400); Red Blood Cell Count 3.85 10^6/uL (4.70-6.10); Red Cell Dist. Width 13.9 % (11.5-14.5); White Blood Cell Count 4.9 10^3/uL (4.8-10.8)
[2024-09-05 04:22] LABS: INR 1.24; PT 16.1 Sec (11.4-14.6)
[2024-09-05 04:23] LABS: APTT 36.8 Sec (23.4-35.0); Fibrinogen 280 MG/DL (199-459)
[2024-09-05 04:36] LABS: Blood Urea Nitrogen 13 mg/dl (9-20); Calcium 8.3 mg/dl (8.4-10.2); Carbon Dioxide 28 mmol/L (22-30); Chloride 106 mmol/L (98-107); Glucose 124 mg/dl (70-99); Potassium 4.4 mmol/L (3.5-5.1); Sodium 138 mmol/L (135-145); eGFR > 60.00
--- NOTE | 2024-09-05 05:15 | PTCARENOTE ---
Reassessed pt. DP and PT pulses remain absent on R foot. No color or temperature change noted on R foot. Pt c/o intermittent burning pain in R foot at an 8/10 - PRN dilaudid (see MAR). No further changes in assessment.
[2024-09-05] MEDS: NSS 1000 IV (05:24)
[2024-09-05 05:44] LABS: Glucose - Point of Care 121 mg/dl (70-99)
--- NOTE | 2024-09-05 07:30 | W.PN.INTV ---
Today's Communication / Plan
Recommendations
Remains stable off pressors
Plan to return to OR today per team
Pain control
Assessment
-
Patient is a 78-year-old male with past medical history for CAD, type 2 diabetes, hyperlipidemia, CHF, peripheral artery disease, aortic stenosis status post TAVR, presenting to ER with right lower extremities numbness and weakness since last
night. He noticed his right lower extremity is very pale. 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 Patient was evaluated by vascular
and recommended angiogram with attempted thrombolysis. Patient underwent procedure today 09/04/24 urgently and postoperatively transferred to ICU for further management.
R LE critical limb ischemia with suspected thrombosed RLE bypass graft s/p RLE arteriogram, initiation of catheter directed thrombolysis 09/04/24
RLE numbness/weakness/pallor
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
Subacute right lower extremity limb ischemia with occlusion of distal SFA + popliteal artery with right lower extremity popliteal artery aneurysm s/p catheter directed thrombolysis (placed on 08/01/2024)
s/p balloon angioplasty of right above the knee + below the knee popliteal artery (procedure date: 08/02/2024)
s/p right proximal superficial femoral artery to peroneal artery bypass using ipsilateral nonreversed great saphenous vein + ligation and exclusion of popliteal artery aneurysm (POD #2)
Chronic hyponatremia
Former tobacco use (120-PY Hx --> smoked for 60 years, smoking 1PPD for 'many years' and as much as 2�2.5 PPD for 10 of those smoking years; quit smoking in September 2021)
COPD/panlobular emphysema
GOLD class II via PFT from 02/04/2024 with significant bronchodilator response and severely reduced gas exchange capacity with DLco: 27%; DLco/VA: 30%
Follows w/ [facility]
Chronic HFrEF/ICM (EF 30-35%)
History of aortic valve stenosis s/p TAVR09/28/22
History of iron deficiency anemia
History of acute diverticulitis, managed medically
Diabetes mellitus type II
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
VT s/p [facility] [employer] ICD
Hyperlipidemia
HTN
Perianal Condyloma accuminata - excision and fulguration (1993)
Colonic polyps - Colonoscopy /w bx
Ureterovesical junction calculus - hospitalized (2001)
Renal calculi
Plan:
Patient is s/p arteriogram and lysis by vascular surgery service, POD #1
Continue observation following procedure
Follow neurovascular checks per protocol
Likely to return to OR today 09/05 for further intervention
Follow BP monitoring and parameters as set by primary team
Cardiac history noted--HF, HTN, CAD, VT post ICD
Resume home meds as able
Monitor on telemetry
Pain control per protocol
RASS goal 0
Prior history of pulmonary disease: COPD/former smoker
Prior CT/CXR reviewed indicating no acute disease, chronic emphysema
Resume home inhalers, denies active complaints
No indication for steroids
Prior PFTs for review--moderate obstruction, severe diffusion impairment, not on baseline O2 at home
Encouraged IS
Diet advancement per protocol
Aspiration precautions
GI prophylaxis if indicated for stress ulcer prevention in the critically ill
Creat at baseline, follow UO
Critical I/Os
Void trials
Replete electrolytes as needed
No signs/symptoms suspicious for infectious etiology at this time
Will observe off antibiotics for now
Follow temperatures/CBC
Hb and platelets postoperatively stable
DVT prophylaxis recommended if not contraindicated based on procedural history -- heparin SQ and mechanical SCDs
Encouraged OOB/PT/OT/ambulation once cleared by surgical team
Diagnostic Data:
CT AP 09/04/24- 1. The right proximal SFA bypass graft is occluded, as is the [place] right SFA. Reconstitution of the very distal aspect of the popliteal artery. Dominant outflow to the right foot is via the peroneal artery, with possible occlusion
of the anterior tibial artery and small caliber of the posterior tibial artery.
2. Multifocal stenoses within the left SFA, each estimated at 50-75%. Mild aneurysmal dilation of the left popliteal artery with mural thrombus measuring 1.5 cm in greatest orthogonal dimension. Infrapopliteal disease on the left.
3. Cholelithiasis without evidence of acute cholecystitis.
4. Emphysema.
5. Mild coronary arterial calcification. Please correlate with symptoms of and risk factors for coronary artery disease, with further workup as clinically appropriate.
CTA abdominal aorta with runoff 07/31/2024: There is significant diffuse atherosclerotic disease with calcification. There is occlusion of the distal right SFA. On delayed images, minimal contrast opacification within the lumen of the right popliteal
artery. There does appear to be three-vessel runoff within the right calf, somewhat limited evaluation because of severe calcification. No evidence for occlusion of the left arterial circulation. Aneurysm of the right popliteal artery. Aneurysm of
the left distal SFA. In the right pelvis, CT findings highly suggestive of diverticulitis involving the sigmoid colon. No evidence of abscess or free intraperitoneal air.
LDCT 08/23/23- Resolution of small focal opacities in the lingula and left lower lobe in the interval since prior study. Areas of scarring and pattern of centrilobular type emphysema again identified. No discrete focal parenchymal mass/nodule.
Coronary artery calcifications and TAVR again seen.
ECHO 08/04/24- Normal appearing LV size with low normal systolic function and without obvious wall motion abnormalities. LVEF is approximately 50-55%. No LVH. Normal right ventricular size and function. Normally functioning 29mm Nataly TAVR - Peak
gradient 15mmHg/Mean gradient 7mmHg - no aortic regurgitation is seen. Mild tricuspid regurgitation. Estimated pulmonary artery pressure of 35 mmHg assuming a right atrial pressure of 3 mmHg.
Compared to prior on October 31, 2022, on [id number]-ynxi comparison LVEF has improved now approximately 50-55%, previously 30-35%.
PFT 10/31/2018: FEV1 1.23 L 34%, FVC 2.9 L 58%, ratio 42. Post FEV1 1.99 L 54%. TLC 8.01 L 101%, RV/TLC 51, DLCO 40%--moderate obstruction, air trapping w/o hyperinflation, moderate diffusion impairment
-----
Critical Care time 45 mins -- The patient is admitted for acute critical illness for the treatment of vital organ failure and/or prevention of further life-threatening conditions. Total care includes time spent in review of history, physical exam,
medications, hemodynamic/ventilator parameters, laboratory data, imaging and discussion with house staff, pharmacy, respiratory therapy, custom shoe designer and maker, and nursing.
Subjective Dataa
Subjective Data
Date of Service:
Date of Service: September 05, 2024
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
Subjective:
No events ON, leg pain has lessened
Still no pulses
Off pressors
Objective Data
Data Reviewed
Vital Signs / I&O / Oxygen:
Vital Signs
Temp Pulse Resp BP Pulse Ox
97.4 F 77 10 110/51 100
09/05/24 07:25 09/05/24 07:15 09/05/24 07:15 09/05/24 07:00 09/05/24 07:15
Intake and Output
09/04/24 09/05/24 09/06/24
06:59 06:59 06:59
Intake Total 2130 / 2265 135 / 135
Output Total 1780 / 1890 110 / 110
Balance 350 / 375
SaO2 100
Nasal Cannula flow liters per 3
minute
Physical Exam
General: Comfortable and Other (NAD)
HEENT: Normocephalic, Anicteric and Moist Mucous Membranes
Cardiovascular: S1-S2 and Regular Rhythm
Respiratory: Clear and Non-Labored Respirations
GI: Soft, Non Distended and Non Tender
Neurology: Awake, Alert, Oriented and No Motor Deficits
Skin: Warm, Dry and Other (RLE pulseless)
Labs/Micro/Reports
Lab Data
09/05/24 03:51
Laboratory Results
09/04/24 09/04/24 09/04/24
12:35 17:56 21:31
PT 16.7 H 17.3 H 16.6 H
INR 1.30 1.36 1.29
APTT 34.2 124.2 H 39.5 H
09/05/24
03:51
PT 16.1 H
INR 1.24
APTT 36.8 H
[2024-09-05] MEDS: RANEXA EXTENDED RELEASE 500 MG PO ×2 (07:58→20:56)
[2024-09-05] MEDS: TOPROL XL 25 MG PO (07:59)
[2024-09-05] MEDS: LIPITOR 40 MG PO (08:00)
[2024-09-05] MEDS: ASPIR LOW (ENTERIC COATED) 81 MG PO (08:00)
--- NOTE | 2024-09-05 08:32 | VNURNOTE ---
Addendum entered by Evonne Gonsalez, RN 09/05/24 08:32:
Per [facility] chart, prior to admission, patient was staying at girlfriend's house: [address] [place] [address]
Original Note:
Chart reviewed. Patient is current with [facility] nursing. Will continue to follow hospital course and DC plans.
--- NOTE | 2024-09-05 08:33 | W.PN.INTV ---
Today's Communication / Plan
Recommendations
OR today per vascular surgery for lysis check/possible angioplasty/stent
Assessment
-
Pt is a 78-yo M pmnCAD, CHF, HLD, s/p TAVR, PAD, NIDDM sent to ED for R LE numbness and pain and is being followed s/p RLE angiogram and thrombolysis.
R LE critical limb ischemia with suspected thrombosed RLE bypass graft s/p RLE arteriogram, initiation of catheter directed thrombolysis 09/04/24
RLE numbness/weakness/pallor
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
Subacute right lower extremity limb ischemia with occlusion of distal SFA + popliteal artery with right lower extremity popliteal artery aneurysm s/p catheter directed thrombolysis (placed on 08/01/2024)
s/p balloon angioplasty of right above the knee + below the knee popliteal artery (procedure date: 08/02/2024)
s/p right proximal superficial femoral artery to peroneal artery bypass using ipsilateral nonreversed great saphenous vein + ligation and exclusion of popliteal artery aneurysm (POD #2)
Chronic hyponatremia
Former tobacco use (120-PY Hx --> smoked for 60 years, smoking 1PPD for 'many years' and as much as 2�2.5 PPD for 10 of those smoking years; quit smoking in September 2021)
COPD/panlobular emphysema
GOLD class II via PFT from 02/04/2024 with significant bronchodilator response and severely reduced gas exchange capacity with DLco: 27%; DLco/VA: 30%
Follows w/ [facility]
Chronic HFrEF/ICM (EF 30-35%)
History of aortic valve stenosis s/p TAVR09/28/22
History of iron deficiency anemia
History of acute diverticulitis, managed medically
Diabetes mellitus type II
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
VT s/p [employer] ICD
Hyperlipidemia
HTN
Perianal Condyloma accuminata - excision and fulguration (1993)
Colonic polyps - Colonoscopy /w bx
Ureterovesical junction calculus - hospitalized (2001)
Renal calculi
Plan:
Patient is s/p arteriogram and lysis by vascular surgery service, POD #1
Abdomen CTA: R SFA bypass graft occluded, multifocal stenoses w/in L SFA
Neurovascular checks per protocol
Continue home ASA, statin
Return to OR today per vascular surgery for lysis check/possible angioplasty/stent
Pain control per protocol
Pain well controlled
RASS goal 0, at 0
Follow BP monitoring and parameters as set by primary team
Cardiac hx: CHF, HTN, CAD, VT s/p ICD
Echo: LVEF 50-55%, normal functioning AVR, pulm HTN
Resume home meds as able
On home metoprolol succinate
Monitor on telemetry
Hx: COPD/ smoker
CT/CXR: emphysema, no acute cardiopulmonary process
Resume home albuterol
No active complaints, no indication for steroids.
No indication for steroids
On 3L O2 NC, not on baseline O2 at home. Wean as able
Encouraged IS and smoking cessation
NPO for procedure today
Aspiration precautions
Cr at baseline, UO wnl
Replete electrolytes as needed
No signs/symptoms suspicious for infectious etiology at this time
No indication for antibiotics at this time
Normocytic anemia, though Hb and platelets are stable postoperatively
DVT prophylaxis recommended if not contraindicated based on procedural history -- heparin SQ and mechanical SCDs
Endocrine hx: DM type II
HbA1c 6.1%
ISS
resume home meds when able
Subjective Dataa
Subjective Data
Date of Service:
Date of Service: September 05, 2024
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
Subjective:
Pt reports intermittent burning pain in R foot. No PT and DP pulses present by doppler throughout the night. Pain is well controlled w pain medicine
Objective Data
Data Reviewed
Vital Signs / I&O / Oxygen:
Vital Signs
Temp Pulse Resp BP Pulse Ox
97.4 F 68 10 111/53 100
09/05/24 07:25 09/05/24 07:59 09/05/24 07:15 09/05/24 07:59 09/05/24 07:48
Intake and Output
09/04/24 09/05/24 09/06/24
06:59 06:59 06:59
Intake Total 2130 / 2265 135 / 135
Output Total 1780 / 1890 110 / 110
Balance 350 / 375
SaO2 100
Nasal Cannula flow liters per 3
minute
Physical Exam
General: Comfortable
HEENT: Normocephalic, Anicteric, Moist Mucous Membranes and Other (on 3L O2 via NC)
Cardiovascular: S1-S2, Regular Rhythm, Peripheral Edema, Cool Extremities and Other (absent PT and DP pulses b/l)
Respiratory: Clear and Non-Labored Respirations
GI: Soft, Non Distended, Flat, Non Tender and Normal Bowel Sounds
Neurology: AO x 3
Skin: Warm, Dry, Good Color and Bruising
Labs/Micro/Reports
Lab Data
09/05/24 03:51
Laboratory Results
09/04/24 09/04/24 09/04/24
12:35 17:56 21:31
PT 16.7 H 17.3 H 16.6 H
INR 1.30 1.36 1.29
APTT 34.2 124.2 H 39.5 H
09/05/24
03:51
PT 16.1 H
INR 1.24
APTT 36.8 H
--- NOTE | 2024-09-05 08:56 | PTCARENOTE ---
Receive pt awake and alert.+ELLIOTT with sensation intact.c/o severe right foot pain/burning.Medicated with Dilaudid as ordered.Flat bedrest maintained.SR with 1st AVB and occasional PAC noted.Left groin sheath and lysis cath intact with
Heparin/Alteplase and NSS as ordered.Right foot slightly cool and dusky.Vascular team at bedside.+ PT/DP Doppler pulses present left foot.No pulses right foot.IVF infusing as ordered.Decreased breath sounds bibasilar.O2 3l NC.POX 100%NPO.No BM.Ovalle
draining yellow urine.Skin integrity as documented.Plan of care discussed with pt.
--- NOTE | 2024-09-05 08:59 | W.PN.VS ---
Addendum entered and electronically signed by Phong Ovalle III, MD 09/05/24 11:02:
This patient was seen and examined in collaboration with DIANA Wilson. I agree with the history and physical exam as well as the assessment and plan. I have the following additions:
No major events overnight
Right foot wtih no Dopp signal
Lysis check and possible endovascular intervention this morning
Signed:
Phong Ovalle III, MD
Vascular Surgery
[facility]
Original Note:
Today's Communication / Plan
-
Seen and assessed with Dr. Ovalle
Assessment/Plan
-
POD 1 lysis catheter placement for thrombosed bypass of the right lower extremity
Plan:
- N.p.o.
- OR today for lysis check/possible angioplasty/stent
Subjective Data
-
Date of Service: September 05, 2024
Patient seen at bedside this a.m. with Dr. Ovalle. Patient having discomfort to the right foot. Foot remains slightly dusky. Temperature unchanged from yesterdays exam. No events overnight. Labs stable.
Objective Data
-
Vital Signs
Temp Pulse Resp BP Pulse Ox
97.4 F 68 10 111/53 100
09/05/24 07:25 09/05/24 07:59 09/05/24 07:15 09/05/24 07:59 09/05/24 07:48
Intake and Output
09/04/24 09/05/24 09/06/24
06:59 06:59 06:59
Intake Total 2129 270 / 270
Output Total 1779 190 / 190
Balance 350 / 375 80 / 80
Intake:
Oral fluids 240 / 240
IV fluids (Total) 1889 270 / 270
Alteplase 56 / 60 8 / 8
HEPARIN 90943 UNITS/250 ML 25, 70 / 75 10 / 10
000 units In 250 ml @ 500 UNITS
/HR 5 mls/hr ART SHEATH .Q24H
GINNA Rx#:[id number]
Nss 1,000 ml @ 46 mls/hr INF 644 / 690 92 / 92
CATH .[id number] GINNA Rx#:[id number]
Nss 1,000 ml @ 80 mls/hr IV . 1120 / 1200 160 / 160
[id number] GINNA Rx#:[id number]
Output:
Urine, Ovalle 1780 / 1890 190 / 190
Lab Results
09/05/24 03:51
Calcium 8.3 mg/dl (8.4-10.2) L 09/05/24 03:51
Physical Exam
-
AAO x 3
No tachypnea on room air
No tachycardia
Abdomen soft
Groin site dressing intact
Right foot remains mildly dusky, no change in sensation or temperature or motor function
[2024-09-05] MEDS: NOVOLOG FLEXPEN-LOW RESISTANCE SC ×2 (09:26→12:50)
[2024-09-05] MEDS: ATIVAN 0.5 MG IV (09:30)
--- NOTE | 2024-09-05 09:36 | PTCARENOTE ---
Pt c/o anxiety.Medicated with Ativan as ordered.Report given to MEAT GRADERMILTON Baig.
[2024-09-05 09:38] LABS: Glucose - Point of Care 112 mg/dl (70-99)
[2024-09-05 10:18] LABS: Glycohemoglobin (HgbA1c) 6.1 % (4.0-5.6)
[2024-09-05 10:23] LABS: Hematocrit 35.2 % (39.0-52.0); Hemoglobin 10.9 g/dL (13.0-18.0); Mean Corpuscular Hgb 28.8 pg (27.0-31.0); Mean Corpuscular Volume 93.1 fL (80.0-94.0); Platelet Count 186 10^3/uL (130-400); Red Blood Cell Count 3.78 10^6/uL (4.70-6.10); Red Cell Dist. Width 13.8 % (11.5-14.5); White Blood Cell Count 8.1 10^3/uL (4.8-10.8)
[2024-09-05 10:33] LABS: PT 15.5 Sec (11.4-14.6)
[2024-09-05 10:34] LABS: APTT 32.9 Sec (23.4-35.0); Fibrinogen 298 MG/DL (199-459)
--- NOTE | 2024-09-05 10:41 | PTCARENOTE ---
1040-Pt transported to Vascular OR via bed.Pt's daughter at bedside.
[2024-09-05 12:11] LABS: Glucose - Point of Care 98 mg/dl (70-99)
[2024-09-05] MEDS: CATHFLO/ACTIVASE INF CATH ×2 (12:54)
[2024-09-05] MEDS: HEPARIN 25000 UNITS/250 ML IV (13:11)
--- NOTE | 2024-09-05 13:44 | PTCARENOTE ---
1238-Received pt from Vascular OR via bed.Pt is sleeping,drowsy.Awakens to voice.Speech is appropriate.SR with 1st AVB noted.IVF and Heparin gtt infusing as ordered.Left puncture wound intact with hematoma.Right foot peroneal artery pulse present
via Doppler as reported by WIND FARM OPERATIONS MANAGER and checked in tandem.Pt's family at bedside.Plan of care discussed.
[2024-09-05] MEDS: PLAVIX 300 MG PO (15:06)
--- NOTE | 2024-09-05 15:39 | CM ---
CM Following re: discharge planning.
Reviewed pt's chart, met with pt and pt's SO at bedside.
Patient is a 78-year-old male admitted with primary dx of POD 1 lysis catheter placement for thrombosed bypass of the right lower extremity. past medical history significant for essential hypertension, hyperlipidemia, CAD, HFrEF, NIDDM, PAD and Hx
nonsustained ventricular tachycardia.
Patient has been staying at home recently because she has a single story home set up- 1 step to enter. Patient's primary home is a split level home- 5 steps to enter. Patient is independent w/ ambulating and ADLs, no DME required. [facility] home
has a tub grab bar and shower chair. Patient has no SNF/VN/PT hx/ Patient engaged in cardiac rehab at in the past.
PCP: Lamar Cancino. Patient's prev PCP has retired
Pharmacy: [facility]
D/C plan: home with anticipated no needs. SO to transport at discharge.
CM will follow with discharge plan updates as hospitalization progresses
--- NOTE | 2024-09-05 15:45 | W.PN.HOSP.TC ---
Today's Communication/Plan
-
see bold
Assessment / Plan
Assessment / Plan
HPI: 78 yo man with hx HFrEF, s/p TAVR, VT s/p AICD, tobacco dependence (quit one month ago), DM 2, COPD, CAD, recent admission 07/31-08/09/24 for RLE ischemic s/p thrombolysis, angioplasty and SFA to peroneal bypass on 08/05/24 presents to the ER
complaining of right lower extremity pain found to have thrombosis with acute limb ischemia.
#Acute limb ischemia right lower extremity with acute occlusion of bypass graft.
#Recent lower right lower extremities ischemia due to distal right SFA occlusion associated with right popliteal artery aneurysm, aneurysm of the left distal SFA
S/p thrombolysis and arteriogram of right lower extremity 08/01
went back to OR for subacute right lower extremity ischemia. s/p balloon angioplasty of right popliteal artery above and below the knee 08/02
S/p R GSV harvest, R SFA to peroneal bypass using non-reversed GSV, exclusion of popliteal aneurysm 08/05
Appreciate vascular surgery input, status post right lower extremity thrombolysis 09/04, status post right lower extremity angioplasty 09/05
Continue IV heparin drip, hold Eliquis
#Bleeding of left groin site
Pressure dressing, monitor
#CAD
Continue aspirin, statin, Plavix, ranolazine
#Chronic heart failure reduced EF
Continue metoprolol
Holding Lasix for now
#Aortic stenosis
Status post TAVR
#History of NSVT
#History of VT status post ICD
#DM2 without hyperglycemia
Hemoglobin A1c 7.4%. Uses Jardiance at home.
Currently on insulin sliding scale.
#COPD without exacerbation
Continue home nebs
#Hyperlipidemia
Continue statin
DVT prophylaxis�IV heparin drip
Full Code
Updated at bedside 09/05
Total time spent to see the patient on the floor, examine the patient, review data and lab results, discuss treatment plan with patient, nursing staff around 50 minutes.
Physical Exam
General: No acute distress
HEENT: Normocephalic, Atraumatic, EOMI, MMM
Respiratory: Clear to Auscultation bilaterally
Cardiac: Normal S1/S2, Regular Rate and Rhythm
GI: Soft, Nontender, Nondistended, Normal Bowel Sounds
Groin: +bleeding
Extremities: No Clubbing, Cyanosis, or Edema
Diminished pedal pulses
Neuro: Nonfocal/Grossly Intact
Anticipated Discharge: > 48 hours
Subjective/Interval History
-
Date of Service: September 05, 2024
Patient reports feeling much better after his procedure. His right foot pain has improved, he does complain of left foot pain. He is having bleeding from his left groin site. No fever, no vomiting. No chest pain, no shortness of breath.
Objective Data
-
Labs:
Laboratory Results
09/04/24 09/05/24 09/05/24
21:31 03:30 03:51
WBC 5.6 Cancelled 4.9
Hgb 11.4 L Cancelled 10.8 L
Hct 36.6 L Cancelled 35.1 L
Plt Count 184 Cancelled 172
PT 16.6 H 16.1 H
INR 1.29 1.24
APTT 39.5 H 36.8 H
Sodium 138
Potassium 4.4
Chloride 106
Carbon Dioxide 28
BUN 13
Creatinine 0.6 L
Glucose 124 H
Calcium 8.3 L
09/05/24 09/05/24 09/05/24
09:30 15:30 21:30
WBC Pending Pending Pending
Hgb Pending Pending Pending
Hct Pending Pending Pending
Plt Count Pending Pending Pending
PT Pending Pending Pending
INR Pending Pending Pending
APTT Pending Pending Pending
Sodium
Potassium
Chloride
Carbon Dioxide
BUN
Creatinine
Glucose
Calcium
Vital Signs:
Vital Signs
Temp Pulse Resp BP Pulse Ox
97.4 F 68 10 111/53 100
09/05/24 07:25 09/05/24 07:59 09/05/24 07:15 09/05/24 07:59 09/05/24 07:48
I&O
09/04/24 09/05/24 09/06/24
06:59 06:59 06:59
Intake Total 2129 / 2264 135 / 135
Output Total 178 / 189 110 / 110
Balance 350 / 375
--- NOTE | 2024-09-05 15:45 | OR.RPT ---
Operative Report
Operative Report
Date of Operation: 09/05/2024
Pre Op Diagnosis: Acutely occluded right lower extremity bypass
Post Op Diagnosis: Acutely occluded right lower extremity bypass
Procedure:
1.) Right lower extremity arteriogram, thrombolysis check
2.) Balloon angioplasty of distal vein graft (3 mm x 60 mm balloon)
3.) Bioabsorbable drug-eluting scaffold placement to distal right lower extremity vein graft (3.5 mm x 38 mm [place] Esprit)
4.) Cutting Balloon angioplasty of mid/distal vein graft stenosis (5 mm x 20 mm)
5.) Pro-glide closure left femoral artery access
6.) Termination of thrombolysis
Surgeon: Phong Ovalle III, MD
Edge Inker Uppers: Josh Youngblood MD PGY1
Anesthesia: Sedation with local
Fluoroscopy:
23.2 min
119 mGy
18.35 gy.cm2
Complications: None
Estimated Blood Loss: 20 cc
History and Indications for Procedure: 78 yo male s/p initiation of thrombolyis 09/04/24 for occluded bypass. Return to the OR today for lysis check and endovascular intervention
Procedure in Detail: Guzman Law was correctly identified and placed supine on the operating table. After adequate induction of anesthesia the bilateral groins and the existing sheath and catheter in the left groin were prepped and draped in the
usual sterile fashion. A timeout was performed with the nursing and anesthesia staff confirming the patient's identity as well as the nature and laterality of the procedure.
A Glidewire was advanced through the [employer] lysis catheter and advanced into the peroneal artery outflow. The lysis catheter was removed.
A diagnostic right lower extremity arteriogram was then performed through the sheath which demonstrated the following:
Patent common femoral artery, profunda femoral artery with no stenosis identified
Heavily calcified [place]nak superficial femoral artery which was patent to its distal extent at which point it occluded
Bypass was patent with sluggish flow. Patent proximal anastomosis with no stenosis identified. Focal area of moderate stenosis in the vein graft in the distal thigh which appeared to be a retained valve. Area of high-grade stenosis identified at
the distal end of the vein graft. Patent distal anastomosis with no stenosis identified
Patent peroneal artery outflow to the ankle with no stenosis identified
Collateral flow identified into the foot
Severe small vessel disease identified in the foot
ENDOVASCULAR INTERVENTION: Systemic heparin was administered. Exchanged out for a 0.014 wire which was positioned in the distal peroneal artery. Under roadmap guidance brought into position a 3 mm x 60 mm angioplasty balloon. This was positioned
in the desired location in the distal end of the vein graft across the distal anastomosis. The balloon was inflated to nominal pressure and held in place for 3-minute inflation. Subsequent arteriogram demonstrated an excellent technical result
with a patent bypass and much improved flow. I elected to treat the distal end of the vein graft with a bioabsorbable drug-eluting scaffold (3.5 mm x 38 mm [employer] Esprit). The scaffold was brought into position under roadmap guidance. This was
positioned in the desired location under magnification view and the distal end of the vein graft but proximal to the distal anastomosis. The scaffold was deployed without difficulty. Subsequent arteriogram demonstrated an excellent technical
result with a widely patent distal vein graft and good position of the scaffold. I had focused on the more proximal stenosis in the vein graft. Under roadmap guidance I positioned a 5 mm x 20 mm cutting angioplasty balloon. This was inflated to
nominal pressure in the desired location and held in place for 2-minute inflation. Subsequent arteriogram demonstrated an excellent technical result with minimal residual stenosis.
COMPLETION ARTERIOGRAM: Patent bypass with brisk flow, significantly improved compared to pretreatment. Patent distal anastomosis with no stenosis identified. Patent peroneal artery outflow with no stenosis identified. Flow into the foot via
peroneal artery collaterals. Limited reconstitution of the distal anterior tibial artery and dorsalis pedis artery with more distal occlusion of the DP. Significant small vessel disease identified in the foot.
I brought a quick cross catheter to the distal peroneal artery and injected 4 mg of tPA directly into the peroneal artery to address any thrombus that may have been present in the small vessels in the foot.
Satisfied with this result we concluded the procedure. The wires and catheters were removed. The sheath tip was pulled back into the left external iliac artery. A Pro-glide closure device was used to close the left femoral artery access site.
Hemostasis was achieved. A sterile dressing was applied.
The patient tolerated the procedure well and was taken to the recovery area in stable condition. The patient had a pulsatile Doppler signal at the right anterior ankle at the conclusion of the case.
Attestation: I was present and responsible for the entire procedure.
Signed:
Phong Ovalle III, MD
Vascular Surgery
[facility]
--- NOTE | 2024-09-05 16:06 | PTCARENOTE ---
1545-Moderate amount serosang drainage from left groin puncture site.Pressure immediately applied.No hematoma noted.FAMILY PRACTICE MD Eddy made aware and at bedside.Vascular network support administrator applying pressure at this time.No other changes noted in assessment.
[2024-09-05 17:38] LABS: Glucose - Point of Care 218 mg/dl (70-99)
[2024-09-05] MEDS: NOVOLOG FLEXPEN-LOW RESISTANCE 2 UNITS SC (18:28)
--- NOTE | 2024-09-05 18:52 | PTCARENOTE ---
1800-Ooozing left groin site increased to moderate amount sero sang drainage.Pressure applied immediately.Dr Ovalle made aware.Labs sents as ordered.Pressure applied for 40 minutes.No bleeding from left groin puncture site at this time.
[2024-09-05 18:53] LABS: % Basophils 0.1 % (0-2); % Immature Granulocytes 0.4 % (0-0.5); % Monocytes 4.3 % (1.7-9.3); % Neutrophils 89.2 % (42.2-75.2); Absolute Lymphocytes 0.7 10^3/uL (1.2-3.4); Absolute Monocytes 0.5 10^3/uL (0.1-0.6); Hemoglobin 11.5 g/dL (13.0-18.0); Mean Corp Hgb Conc. 31.1 g/dL (33.0-37.0); Mean Corpuscular Hgb 28.8 pg (27.0-31.0); Mean Corpuscular Volume 92.7 fL (80.0-94.0); Mean Platelet Volume 10.2 fL (7.4-10.4); Nucleated Red Blood Cells % 0 % (-); Platelet Count 183 10^3/uL (130-400); Red Blood Cell Count 3.99 10^6/uL (4.70-6.10); Red Cell Dist. Width 13.9 % (11.5-14.5); White Blood Cell Count 11.3 10^3/uL (4.8-10.8)
[2024-09-05 19:04] LABS: INR 1.23; PT 15.8 Sec (11.4-14.6)
[2024-09-05 19:07] LABS: APTT 133.2 Sec (23.4-35.0)
[2024-09-05 19:20] LABS: Blood Urea Nitrogen 19 mg/dl (9-20); Calcium 8.6 mg/dl (8.4-10.2); Carbon Dioxide 24 mmol/L (22-30); Chloride 106 mmol/L (98-107); Estimated Creatinine Clearance 91 ml/min; Glucose 202 mg/dl (70-99); Potassium 4.8 mmol/L (3.5-5.1); Sodium 137 mmol/L (135-145); eGFR > 60.00
--- NOTE | 2024-09-05 19:30 | PTCARENOTE ---
Resumed care of pt this evening. Received pt on heparin gtt infusing at 1700 units/hour. Surgical site appears to have stopped bleeding after moderate amount of serosang drainage was noted by nikia RN. No signs of hematoma noted. Pulses are still
present via doppler. Pt has no c/o pain at this time. Pt can move all 4 extremities and make needs known. Pt has sensation of lower extremities and can move them at will.
[2024-09-05] MEDS: TOPROL XL PO (20:29)
[2024-09-05] MEDS: NSS 500 IV (20:56)
[2024-09-05 21:58] LABS: Glucose - Point of Care 231 mg/dl (70-99)
--- NOTE | 2024-09-05 22:00 | PTCARENOTE ---
Upon reassessment, surgical site dressing had a small to moderate amount of serosang drainage. Surgical site was redressed and pressure was applied till wound stopped bleeding. Pt continues to deny pain. Pulses in lower extremities continue to be
present via doppler.
[2024-09-05] MEDS: NOVOLOG FLEXPEN 3 UNITS SC (23:14)
[2024-09-06] VITALS (24 sets, daily range): BP systolic 93–122; BP diastolic 43–64; BMI 27.0
[2024-09-06 03:32] LABS: Hematocrit 31.6 % (39.0-52.0); Hemoglobin 10.1 g/dL (13.0-18.0); Mean Corpuscular Hgb 28.9 pg (27.0-31.0); Mean Corpuscular Volume 90.3 fL (80.0-94.0); Mean Platelet Volume 10.1 fL (7.4-10.4); Platelet Count 172 10^3/uL (130-400); White Blood Cell Count 8.5 10^3/uL (4.8-10.8)
[2024-09-06 03:47] LABS: APTT 124.2 Sec (23.4-35.0)
[2024-09-06 03:55] LABS: Blood Urea Nitrogen 23 mg/dl (9-20); Calcium 8.7 mg/dl (8.4-10.2); Carbon Dioxide 27 mmol/L (22-30); Chloride 109 mmol/L (98-107); Estimated Creatinine Clearance 91 ml/min; Glucose 125 mg/dl (70-99); Potassium 4.5 mmol/L (3.5-5.1); Sodium 140 mmol/L (135-145); eGFR > 60.00
--- NOTE | 2024-09-06 04:00 | PTCARENOTE ---
Upon further inspection, no bleeding or evidence of hematoma noted. Pt is resting comfortably at this time.
[2024-09-06] MEDS: HEPARIN 25000 UNITS/250 ML IV (07:09)
--- NOTE | 2024-09-06 07:36 | W.PN.INTV ---
Addendum entered and electronically signed by Hortencia Romo DO 09/06/24 12:43:
Transferred to tele per team, we will sign off upon transfer
Will arrange OP FU
Original Note:
Today's Communication / Plan
Recommendations
Doing well today, stable on RA/off pressors
Pain improving
Can trial OOB/PT, tolerating diet
Can likely transfer to tele today, d/c planning per team
Assessment
-
Patient is a 78-year-old male with past medical history for CAD, type 2 diabetes, hyperlipidemia, CHF, peripheral artery disease, aortic stenosis status post TAVR, presenting to ER with right lower extremities numbness and weakness since last
night. He noticed his right lower extremity is very pale. 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 Patient was evaluated by vascular
and recommended angiogram with attempted thrombolysis. Patient underwent procedure today 09/04/24 urgently and postoperatively transferred to ICU for further management.
R LE critical limb ischemia with suspected thrombosed RLE bypass graft s/p RLE arteriogram, initiation of catheter directed thrombolysis 09/04/24
s/p Right lower extremity arteriogram, thrombolysis check/Balloon angioplasty of distal vein graft (3 mm x 60 mm balloon)/Bioabsorbable drug-eluting scaffold placement to distal right lower extremity vein graft (3.5 mm x 38 mm [place]
Esprit)/Cutting Balloon angioplasty of mid/distal vein graft stenosis (5 mm x 20 mm)/Pro-glide closure left femoral artery access 09/05
RLE numbness/weakness/pallor
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
Subacute right lower extremity limb ischemia with occlusion of distal SFA + popliteal artery with right lower extremity popliteal artery aneurysm s/p catheter directed thrombolysis (placed on 08/01/2024)
s/p balloon angioplasty of right above the knee + below the knee popliteal artery (procedure date: 08/02/2024)
s/p right proximal superficial femoral artery to peroneal artery bypass using ipsilateral nonreversed great saphenous vein + ligation and exclusion of popliteal artery aneurysm (POD #2)
Chronic hyponatremia
Former tobacco use (120-PY Hx --> smoked for 60 years, smoking 1PPD for 'many years' and as much as 2�2.5 PPD for 10 of those smoking years; quit smoking in September 2021)
COPD/panlobular emphysema
GOLD class II via PFT from 02/04/2024 with significant bronchodilator response and severely reduced gas exchange capacity with DLco: 27%; DLco/VA: 30%
Follows w/ [facility]
Chronic HFrEF/ICM (EF 30-35%)
History of aortic valve stenosis s/p TAVR09/28/22
History of iron deficiency anemia
History of acute diverticulitis, managed medically
Diabetes mellitus type II
CAD (DWARF TREE GROWER of mid RCA and OM1; no stents), NSTEMI 08/2021
VT s/p [facility] [employer] ICD
Hyperlipidemia
HTN
Perianal Condyloma accuminata - excision and fulguration (1993)
Colonic polyps - Colonoscopy /w bx
Ureterovesical junction calculus - hospitalized (2001)
Renal calculi
Plan:
Patient is s/p arteriogram and lysis by vascular surgery service, POD #1 following repeat intervention on 09/05
Continue observation following procedure
Follow neurovascular checks per protocol
Pain improving, pulses are improved as well
Follow BP monitoring and parameters as set by primary team
Cardiac history noted--HF, HTN, CAD, VT post ICD
Resume home meds as able
Monitor on telemetry
Pain control per protocol
RASS goal 0
Prior history of pulmonary disease: COPD/former smoker
Prior CT/CXR reviewed indicating no acute disease, chronic emphysema
Resume home inhalers, denies active complaints
No indication for steroids
Prior PFTs for review--moderate obstruction, severe diffusion impairment, not on baseline O2 at home
Encouraged IS
Diet advancement per protocol
Aspiration precautions
GI prophylaxis if indicated for stress ulcer prevention in the critically ill
Creat at baseline, follow UO
Critical I/Os
Void trials
Replete electrolytes as needed
No signs/symptoms suspicious for infectious etiology at this time
Will observe off antibiotics for now
Follow temperatures/CBC
Hb and platelets postoperatively stable
DVT prophylaxis recommended if not contraindicated based on procedural history -- heparin SQ and mechanical SCDs
Encouraged OOB/PT/OT/ambulation once cleared by surgical team
Diagnostic Data:
CT AP 09/04/24- 1. The right proximal SFA bypass graft is occluded, as is the curyung right SFA. Reconstitution of the very distal aspect of the popliteal artery. Dominant outflow to the right foot is via the peroneal artery, with possible occlusion
of the anterior tibial artery and small caliber of the posterior tibial artery.
2. Multifocal stenoses within the left SFA, each estimated at 50-75%. Mild aneurysmal dilation of the left popliteal artery with mural thrombus measuring 1.5 cm in greatest orthogonal dimension. Infrapopliteal disease on the left.
3. Cholelithiasis without evidence of acute cholecystitis.
4. Emphysema.
5. Mild coronary arterial calcification. Please correlate with symptoms of and risk factors for coronary artery disease, with further workup as clinically appropriate.
CTA abdominal aorta with runoff 07/31/2024: There is significant diffuse atherosclerotic disease with calcification. There is occlusion of the distal right SFA. On delayed images, minimal contrast opacification within the lumen of the right popliteal
artery. There does appear to be three-vessel runoff within the right calf, somewhat limited evaluation because of severe calcification. No evidence for occlusion of the left arterial circulation. Aneurysm of the right popliteal artery. Aneurysm of
the left distal SFA. In the right pelvis, CT findings highly suggestive of diverticulitis involving the sigmoid colon. No evidence of abscess or free intraperitoneal air.
LDCT 08/23/23- Resolution of small focal opacities in the lingula and left lower lobe in the interval since prior study. Areas of scarring and pattern of centrilobular type emphysema again identified. No discrete focal parenchymal mass/nodule.
Coronary artery calcifications and TAVR again seen.
ECHO 08/04/24- Normal appearing LV size with low normal systolic function and without obvious wall motion abnormalities. LVEF is approximately 50-55%. No LVH. Normal right ventricular size and function. Normally functioning 29mm Nataly TAVR - Peak
gradient 15mmHg/Mean gradient 7mmHg - no aortic regurgitation is seen. Mild tricuspid regurgitation. Estimated pulmonary artery pressure of 35 mmHg assuming a right atrial pressure of 3 mmHg.
Compared to prior on October 31, 2022, on tieo-bv-noer comparison LVEF has improved now approximately 50-55%, previously 30-35%.
PFT 10/31/2018: FEV1 1.23 L 34%, FVC 2.9 L 58%, ratio 42. Post FEV1 1.99 L 54%. TLC 8.01 L 101%, RV/TLC 51, DLCO 40%--moderate obstruction, air trapping w/o hyperinflation, moderate diffusion impairment
-----
Critical Care time 35 mins -- The patient is admitted for acute critical illness for the treatment of vital organ failure and/or prevention of further life-threatening conditions. Total care includes time spent in review of history, physical exam,
medications, hemodynamic/ventilator parameters, laboratory data, imaging and discussion with house staff, pharmacy, respiratory therapy, strainer mill operator, and nursing.
Subjective Dataa
Subjective Data
Date of Service:
Date of Service: September 06, 2024
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
Subjective:
Doing well postop, no new complaints
Pain better today
Objective Data
Data Reviewed
Vital Signs / I&O / Oxygen:
Vital Signs
Temp Pulse Resp BP Pulse Ox
98.4 F 73 13 102/57 97
09/06/24 03:31 09/06/24 06:15 09/06/24 06:15 09/06/24 06:00 09/06/24 06:15
Intake and Output
09/05/24 09/06/24 09/07/24
06:59 06:59 06:59
Intake Total 2130 / 2265 2510 / 2522
Output Total 1780 / 1890 2275 / 2275
Balance 350 / 375 235 / 247
SaO2 97
Nasal Cannula flow liters per 2
minute
Physical Exam
General: Comfortable and Other (NAD)
HEENT: Normocephalic, Anicteric and Moist Mucous Membranes
Cardiovascular: S1-S2 and Regular Rhythm
Respiratory: Clear and Non-Labored Respirations
GI: Soft, Non Distended and Non Tender
Neurology: Awake, Alert, Oriented and No Motor Deficits
Skin: Warm, Dry and Other (RLE improved)
Labs/Micro/Reports
Lab Data
09/06/24 03:22
09/06/24 03:22
Laboratory Results
09/05/24 09/05/24 09/05/24
09:25 15:30 18:21
PT 15.5 H Cancelled 15.8 H
INR 1.20 Cancelled 1.23
APTT 32.9 Cancelled 133.2 H
09/05/24 09/05/24 09/06/24
19:20 21:30 03:22
PT Cancelled
INR Cancelled
APTT Cancelled Cancelled 124.2 H
[2024-09-06 07:48] LABS: Glucose - Point of Care 143 mg/dl (70-99)
[2024-09-06] MEDS: NOVOLOG FLEXPEN-MODERATE RESISTANCE SC ×2 (07:55→16:56)
[2024-09-06] MEDS: RANEXA EXTENDED RELEASE 500 MG PO ×2 (08:04→20:31)
[2024-09-06] MEDS: PROTONIX 40 MG PO (08:04)
[2024-09-06] MEDS: LIPITOR 40 MG PO (08:04)
[2024-09-06] MEDS: ASPIR LOW (ENTERIC COATED) 81 MG PO (08:04)
[2024-09-06] MEDS: PLAVIX 75 MG PO (08:04)
--- NOTE | 2024-09-06 08:05 | W.PN.VS ---
Addendum entered and electronically signed by Phong Ovalle III, MD 09/06/24 08:11:
Outpatient plan will be for full dose Eliquis 5 mg bid with Plavix 75 mg daily. Can d/c aspirin
Original Note:
Today's Communication / Plan
-
Plan:
-OOB, ambulate
-Convert to oral anticoagulation and continue antiplatelet
-Possible home later today
Assessment/Plan
-
Successful thrombolysis and subsequent endovascular intervention for thrombosed bypass of the right lower extremity
Plan:
-OOB, ambulate
-Convert to oral anticoagulation and continue antiplatelet
-Possible home later today
Subjective Data
-
Date of Service: September 06, 2024
Left groin oozing overnight has stopped
Right foot feeling 'much better'
No other complaints this AM
Objective Data
-
Vital Signs
Temp Pulse Resp BP Pulse Ox
98.4 F 85 22 105/53 97
09/06/24 03:31 09/06/24 07:45 09/06/24 07:45 09/06/24 07:30 09/06/24 07:45
Intake and Output
09/05/24 09/06/24 09/07/24
06:59 06:59 06:59
Intake Total 2129 / 5 2510 / 2522
Output Total 1780 / 1890 2275 / 2275
Balance 350 / 375 235 / 247
Intake:
Oral fluids 240 / 240 720 / 720
IV fluids (Total) 1889 1290 / 1302
Alteplase 56 / 60
HEPARIN 59592 UNITS/250 ML 25, 70 / 75 20 / 20
000 units In 250 ml @ 500 UNITS
/HR 5 mls/hr ART SHEATH .Q24H
GINNA Rx#:[id number]
Heparin 270 / 282
Nss 1,000 ml @ 46 mls/hr INF 644 / 690 184 / 184
CATH .[id number] GINNA Rx#:[id number]
Nss 1,000 ml @ 80 mls/hr IV . 1120 / 1200 800 / 800
[id number] GINNA Rx#:[id number]
IV piggybacks 500 / 500
Output:
Urine, Ovalle 1780 / 1890 650 / 650
Urine, Voided 1625 / 1625
Other:
How many times incontinent 1
SMALL amount urine
Lab Results
09/06/24 03:22
09/06/24 03:22
Calcium 8.7 mg/dl (8.4-10.2) 09/06/24 03:22
Physical Exam
-
Left groin soft, flat, no bleeding
Right foot pink/warm
Good Dopp signal right DP
--- NOTE | 2024-09-06 09:00 | PTCARENOTE ---
Rec'd pt at 0700, pt AAOx3, pleasant and cooperate. Follows commands, ELLIOTT. Monitor SR/1st degree AVB with PVC's. Lungs CTA. Pox 96% on RA. +BS, abd soft/nt. Left groin dressing changed by this am, noted to be oozing. Dressing removed, small area
to site bleeding, pressure held and pressure dressing applied. +DP/PT pulses by doppler, feet pink/warm.
--- NOTE | 2024-09-06 09:17 | W.PN.HOSP.TC ---
Today's Communication/Plan
-
Stable for telemetry
Assessment / Plan
Assessment / Plan
HPI: 78 yo man with hx HFrEF, s/p TAVR, VT s/p AICD, tobacco dependence (quit one month ago), DM 2, COPD, CAD, recent admission 07/31-08/09/24 for RLE ischemic s/p thrombolysis, angioplasty and SFA to peroneal bypass on 08/05/24 presents to the ER
complaining of right lower extremity pain found to have thrombosis with acute limb ischemia.
#Acute limb ischemia right lower extremity with acute occlusion of bypass graft.
#Recent lower right lower extremities ischemia due to distal right SFA occlusion associated with right popliteal artery aneurysm, aneurysm of the left distal SFA
S/p thrombolysis and arteriogram of right lower extremity 08/01
went back to OR for subacute right lower extremity ischemia. s/p balloon angioplasty of right popliteal artery above and below the knee 08/02
S/p R GSV harvest, R SFA to peroneal bypass using non-reversed GSV, exclusion of popliteal aneurysm 08/05
Appreciate vascular surgery input, status post right lower extremity thrombolysis 09/04, status post right lower extremity angioplasty 09/05
Continue IV heparin drip, Plavix, hold Eliquis
Upon discharge, vascular surgery would like patient to be on Eliquis 5 mg twice a day with Plavix 75 mg daily. Discontinue aspirin
#Bleeding of left groin site
#Acute blood loss anemia
Pressure dressing, trend hemoglobin monitor
#CAD
Continue aspirin, statin, Plavix, ranolazine
#Chronic heart failure reduced EF
Continue metoprolol
Holding Lasix for now
#Aortic stenosis
Status post TAVR
#History of NSVT
#History of VT status post ICD
#DM2 without hyperglycemia
Hemoglobin A1c 7.4%. Uses Jardiance at home.
Currently on insulin sliding scale.
#COPD without exacerbation
Continue home nebs
#Hyperlipidemia
Continue statin
DVT prophylaxis�IV heparin drip
Full Code
Updated at bedside 09/06
Total time spent to see the patient on the floor, examine the patient, review data and lab results, discuss treatment plan with patient, nursing staff around 51 minutes.
Physical Exam
General: No acute distress
HEENT: Normocephalic, Atraumatic, EOMI, MMM
Respiratory: Clear to Auscultation bilaterally
Cardiac: Normal S1/S2, Regular Rate and Rhythm
GI: Soft, Nontender, Nondistended, Normal Bowel Sounds
Groin: +bleeding at left groin site
Extremities: No Clubbing, Cyanosis, or Edema
Diminished pedal pulses
Neuro: Nonfocal/Grossly Intact
Anticipated Discharge: Within 24 hours
Subjective/Interval History
-
Date of Service: September 06, 2024
Patient reports feeling better. Right foot pain resolved. He continues to have mild bleeding from his left groin site. No fever, no vomiting.
Objective Data
-
Labs:
Laboratory Results
09/06/24 09/06/24
03:22 10:00
WBC 8.5
Hgb 10.1 L
Hct 31.6 L
Plt Count 172
APTT 124.2 H Pending
Sodium 140
Potassium 4.5
Chloride 109 H
Carbon Dioxide 27
BUN 23 H
Creatinine 0.8
Glucose 125 H
Calcium 8.7
Vital Signs:
Vital Signs
Temp Pulse Resp BP Pulse Ox
97.6 F 80 19 100/51 92
09/06/24 08:20 09/06/24 08:45 09/06/24 08:45 09/06/24 08:30 09/06/24 08:45
I&O
09/05/24 09/06/24 09/07/24
06:59 06:59 06:59
Intake Total 2130 / 2265 2510 / 2522
Output Total 1780 / 1890 2275 / 2275
Balance 350 / 375 235 / 247
--- NOTE | 2024-09-06 11:00 | PTCARENOTE ---
Pt OOB to chair with min assist. Family at bedside. Left groin assessed, small amt bloody drainage to dressing.
[2024-09-06 11:18] LABS: APTT 75.7 Sec (23.4-35.0)
[2024-09-06 11:47] LABS: Glucose - Point of Care 185 mg/dl (70-99)
[2024-09-06] MEDS: NOVOLOG FLEXPEN-MODERATE RESISTANCE 1 UNITS SC (11:54)
[2024-09-06] MEDS: SENOKOT-S 2 TABLET PO (13:09)
[2024-09-06] MEDS: MIRALAX 17 GRAMS PO (13:09)
--- NOTE | 2024-09-06 13:32 | PTCARENOTE ---
Left groin dressing saturated. Dressing removed, same small area noted to be oozing from site. Area cleansed, new pressure dressing applied. Dr. Ovalle notified. Family at bedside.
--- NOTE | 2024-09-06 15:38 | W.PN.ANS.POP ---
Anesthesia Post Operative
- Anesthesia Post Op Note
Vital Signs Stable-See Nursing Note: Yes
Airway Patent: Yes
Adequate Pain Control: Yes
Change in Mental Status: No
Current Postoperative Nausea & Vomiting: No
Anesthesia Complications: No
General Anesthetic Recall: No
Unplanned Admission: No
Post Op Hydration Adequate: Yes
[2024-09-06 17:07] LABS: Glucose - Point of Care 135 mg/dl (70-99)
[2024-09-06 17:30] LABS: APTT 57.6 Sec (23.4-35.0)
[2024-09-06] MEDS: SENOKOT-S PO (20:31)
[2024-09-06 21:29] LABS: Glucose - Point of Care 180 mg/dl (70-99)
[2024-09-07 01:11] LABS: APTT 89.6 Sec (23.4-35.0)
[2024-09-07] MEDS: HEPARIN 25000 UNITS/250 ML IV (01:13)
[2024-09-07 03:15] VITALS: BP 101/37
[2024-09-07 06:00] VITALS: BMI 26.9
[2024-09-07 06:48] LABS: Hematocrit 31.4 % (39.0-52.0); Hemoglobin 9.9 g/dL (13.0-18.0); Mean Corp Hgb Conc. 31.5 g/dL (33.0-37.0); Mean Corpuscular Hgb 28.4 pg (27.0-31.0); Mean Corpuscular Volume 90.2 fL (80.0-94.0); Mean Platelet Volume 10.4 fL (7.4-10.4); Platelet Count 180 10^3/uL (130-400); Red Blood Cell Count 3.48 10^6/uL (4.70-6.10); Red Cell Dist. Width 14.1 % (11.5-14.5); White Blood Cell Count 6.5 10^3/uL (4.8-10.8)
[2024-09-07 06:50] LABS: APTT 129.3 Sec (23.4-35.0)
[2024-09-07 07:20] VITALS: BP 105/49
[2024-09-07 07:20] LABS: Blood Urea Nitrogen 21 mg/dl (9-20); Calcium 8.5 mg/dl (8.4-10.2); Carbon Dioxide 29 mmol/L (22-30); Chloride 106 mmol/L (98-107); Estimated Creatinine Clearance 104 ml/min; Glucose 123 mg/dl (70-99); Potassium 4.3 mmol/L (3.5-5.1); Sodium 139 mmol/L (135-145); eGFR > 60.00
[2024-09-07 07:28] LABS: Glucose - Point of Care 134 mg/dl (70-99)
--- NOTE | 2024-09-07 07:53 | W.PN.HOSP.TC ---
Today's Communication/Plan
-
Cleared by vascular surgery for discharge today
Assessment / Plan
Assessment / Plan
HPI: 78 yo man with hx HFrEF, s/p TAVR, VT s/p AICD, tobacco dependence (quit one month ago), DM 2, COPD, CAD, recent admission 07/31-08/09/24 for RLE ischemic s/p thrombolysis, angioplasty and SFA to peroneal bypass on 08/05/24 presents to the ER
complaining of right lower extremity pain found to have thrombosis with acute limb ischemia.
#Acute limb ischemia right lower extremity with acute occlusion of bypass graft.
#Recent lower right lower extremities ischemia due to distal right SFA occlusion associated with right popliteal artery aneurysm, aneurysm of the left distal SFA
S/p thrombolysis and arteriogram of right lower extremity 08/01
went back to OR for subacute right lower extremity ischemia. s/p balloon angioplasty of right popliteal artery above and below the knee 08/02
S/p R GSV harvest, R SFA to peroneal bypass using non-reversed GSV, exclusion of popliteal aneurysm 08/05
Appreciate vascular surgery input, status post right lower extremity thrombolysis 09/04, status post right lower extremity angioplasty 09/05
Transition from IV heparin drip today to Eliquis 5 mg twice a day, continue Eliquis upon discharge
Upon discharge, vascular surgery would like patient to be on Eliquis 5 mg twice a day with Plavix 75 mg daily. Hold aspirin while on Eliquis and Plavix
#Bleeding of left groin site
#Acute blood loss anemia
Bleeding resolved on the day of discharge
Pressure dressing, trend hemoglobin monitor
#CAD
Continue aspirin, statin, Plavix, ranolazine
#Chronic heart failure reduced EF
Continue metoprolol
Holding Lasix for now
#Aortic stenosis
Status post TAVR
#History of NSVT
#History of VT status post ICD
#DM2 without hyperglycemia
Hemoglobin A1c 7.4%. Uses Jardiance at home.
Currently on insulin sliding scale.
#COPD without exacerbation
Continue home nebs
#Hyperlipidemia
Continue statin
DVT prophylaxis�eliquis
Full Code
Updated at bedside 09/06
Physical Exam
General: No acute distress
HEENT: Normocephalic, Atraumatic, EOMI, MMM
Respiratory: Clear to Auscultation bilaterally
Cardiac: Normal S1/S2, Regular Rate and Rhythm
GI: Soft, Nontender, Nondistended, Normal Bowel Sounds
Groin: +bleeding at left groin site
Extremities: No Clubbing, Cyanosis, or Edema
Diminished pedal pulses
Neuro: Nonfocal/Grossly Intact
Anticipated Discharge: Today
Subjective/Interval History
-
Date of Service: September 07, 2024
Patient denies right foot pain. His left groin bleeding has resolved. No chest pain, no shortness of breath. No fever, no vomiting. He is eager for discharge today.
Objective Data
-
Labs:
Laboratory Results
09/07/24 09/07/24 09/07/24
00:40 06:23 13:00
WBC 6.5
Hgb 9.9 L
Hct 31.4 L
Plt Count 180
APTT 89.6 H 129.3 H Pending
Sodium 139
Potassium 4.3
Chloride 106
Carbon Dioxide 29
BUN 21 H
Creatinine 0.7
Glucose 123 H
Calcium 8.5
Vital Signs:
Vital Signs
Temp Pulse Resp BP Pulse Ox
98.2 F 78 17 101/37 94
09/07/24 03:15 09/07/24 03:15 09/07/24 03:15 09/07/24 03:15 09/07/24 03:15
I&O
09/06/24 09/07/24 09/08/24
06:59 06:59 06:59
Intake Total 2510 / 2522 1080 / 1080
Output Total 2275 / 2275 3150 / 3150
Balance 235 / 247 -2069 /
--- NOTE | 2024-09-07 08:05 | W.PN.UPDATE ---
Update Note
Progress Note Update
Pt without complaints this AM
Left groin is dry and no hematoma present
No bleeding
Right foot pink/warm. Dopp signal intact
Convert to oral anticoag. Eliquis 5 mg bid along with plavix daily
F/U with me as scheduled in the office
Phong Ovalle III, MD
Vascular Surgery
[facility]
[2024-09-07] MEDS: MIRALAX 17 GRAMS PO (08:31)
[2024-09-07] MEDS: RANEXA EXTENDED RELEASE 500 MG PO (08:32)
[2024-09-07] MEDS: LIPITOR 40 MG PO (08:33)
[2024-09-07] MEDS: PLAVIX 75 MG PO (08:33)
[2024-09-07] MEDS: NOVOLOG FLEXPEN-MODERATE RESISTANCE SC (08:33)
[2024-09-07] MEDS: PROTONIX 40 MG PO (08:33)
[2024-09-07] MEDS: SENOKOT-S PO (08:36)
[2024-09-07] MEDS: ASPIR LOW (ENTERIC COATED) PO (08:37)
--- NOTE | 2024-09-07 10:06 | W.DCSUMMARY ---
Discharge Summary
Discharge Data
Date of Admission: 09/04/24
Date of Discharge: 09/07/24
-
Pending Results: No
Hospital Course
Discharge diagnosis:
Acute critical limb ischemia of right lower extremity with acute occlusion of bypass graft status post thrombolysis and angioplasty 09/05/24
Recent right lower extremity ischemia status post bypass graft 08/05/24
Bleeding of left groin site
Acute blood loss anemia
Constipation
Coronary artery disease
Chronic heart failure with reduced ejection fraction
Aortic stenosis status post valve replacement
History of nonsustained ventricular tachycardia
History of ventricular tachycardia status post intracardiac defibrillator
Type 2 diabetes
Chronic obstructive pulmonary disease
Hyperlipidemia
Consults: Tumbler Plater, vascular surgery
Procedures:
09/04/24
1. Duplex assisted cannulation of left common femoral artery.
2. Aortogram and pelvic angiogram.
3. Right lower extremity arteriogram with third order vessel catheterization of right peroneal artery via left common femoral artery puncture.
4. Initiation of catheter directed thrombolysis.
5. Supervision and interpretation.
09/05/24
1.) Right lower extremity arteriogram, thrombolysis check
2.) Balloon angioplasty of distal vein graft (3 mm x 60 mm balloon)
3.) Bioabsorbable drug-eluting scaffold placement to distal right lower extremity vein graft (3.5 mm x 38 mm [place] Esprit)
4.) Cutting Balloon angioplasty of mid/distal vein graft stenosis (5 mm x 20 mm)
5.) Pro-glide closure left femoral artery access
6.) Termination of thrombolysis
Hospital course:
78-year-old male with a past medical history of right lower extremity ischemia status post bypass graft 08/05/24, CAD, CHF, aortic stenosis, diabetes, and COPD who was admitted for acute critical limb ischemia of his right lower extremity due to
acute occlusion of his bypass graft. Patient was seen in conjunction with vascular surgery, and emergently taken to the OR for catheter directed thrombolysis. He was then observed in the ICU postoperatively, and seen in conjunction with the
irrigation system installer. He was taken back to the OR the following day, for right lower extremity angioplasty. He did well postoperatively.
Patient was treated with a heparin drip and Plavix. He did have some bleeding of his left groin site with associated acute blood loss anemia. The bleeding resolved with holding pressure. Vascular surgery recommends that he be discharged on
Eliquis 5 mg twice a day and Plavix 75 mg daily. He can hold his aspirin while on Eliquis and Plavix. He is medically stable and cleared by vascular surgery for discharge. He needs to follow-up with vascular surgery in the office, and his PCP in
1 week.
Disposition: Home self-care
Discharge planning: Required 41 minutes
Discharge Plan
-
Patient Disposition: Home (Routine Discharge)
Discharge Diagnosis/Procedures: Catheter directed thrombolysis to the right lower extremity bypass
Right lower extremity arteriogram, angioplasty and stent placement inside bypass
Condition: Good
Diet: As tolerated
Activity: No strenuous activity
Driving Restrictions: No driving for 24 hours
Bathing Restrictions: OK to Shower
Others Tests: Ultrasound appointment: 09/25 @ 8:30
Activity Restrictions/Additional Instructions:
Vascular surgery recommends you take Eliquis and Plavix. Hold aspirin while taking Eliquis and Plavix.
Follow-up with vascular surgery in the office as directed, pulmonology in the office in 4-6 weeks, and your primary care physician in 1 week.
Stand Alone Forms: DC Instr - Vascular OR
Referrals:
Lamar Cancino MD [Family Provider] - in one week
Conor Singh MD [Active] - in four to six weeks (PFT (if none in >6 mos))
Yael Gonzalez CRNP [Specified Professional Personl] - 10/01/24 9:00 am
(Vascular office follow-up
If anything changes with how you are feeling, symptoms in your leg/foot PLEASE call the office*)
Prescriptions:
New
sennosides-docusate sodium 8.6-50 mg Tablet
2 tab PO BID 10 Days Qty: 40 0RF
clopidogrel [Plavix] 75 mg tablet
75 mg PO DAILY Qty: 30 0RF
Continued
ranolazine 500 MG tablet extended release 12 hr
500 mg PO BID Qty: 120 0RF
furosemide 20 mg Tablet
20 mg PO MOWEFR
ascorbic acid (vitamin C) [Vitamin C] 1,000 mg Tablet
1,000 mg PO DAILY
therapeutic multivitamin Tablet
1 tab PO DAILY
Jardiance 25 mg Tablet
25 mg PO DAILY
atorvastatin 40 MG tablet
40 mg PO DAILY
albuterol sulfate 90 mcg/actuation HFA aerosol inhaler
1 puff inhalation R Q4HPRN PRN (Reason: shortness of breath or wheezing)
Eliquis 5 mg Tablet
5 mg PO BID Qty: 60 0RF
metformin 500 mg Tablet
500 mg PO BID@0800,1700 Qty: 60 0RF
metoprolol succinate 25 mg Tablet Extended Release 24 Hr
25 mg PO BID Qty: 60 0RF
Held
aspirin 81 MG tablet,delayed release (DR/EC)
81 mg PO DAILY 0RF
Hold Instructions: Hold while on Eliquis AND plavix
Discharge Orders:
Discharge Patient (As Directed); Ordered 09/07/24
Ordered By: William Ruiz
Discharge Date and Time
Discharge Date/Time: 09/07/24 11:31
Print Language: KINYARWANDA
[2024-09-07] MEDS: ELIQUIS 5 MG PO (10:30)
[2024-09-07 10:51] VITALS: BP 118/69
--- NOTE | 2024-09-07 11:22 | CM ---
CM reviewed chart and spoke with RN. Pt has no skilled needs noted at this time.
Should needs change please reconsult.
CM/SW will continue to follow to ensure a safe and timely dc.
== END 2024-09-07 11:31 | disposition home or self-care (01) | DRG 253 ==
LOC: 2 SOUTH 16:25
PROVIDERS: Nurse Practitioner; Nurse Practitioner Acute Care; Registered Nurse; Surgery Vascular Surgery; ADMITTING PHYSICIAN Surgery Vascular Surgery; ATTENDING PHYSICIAN Family Medicine; CONSULT PHYSICIAN Internal Medicine; EMERGENCY PHYSICIAN Emergency Medicine; FAMILY PHYSICIAN Family Medicine
PROC: B4101ZZ Fluoroscopy of Abdominal Aorta using Low Osmolar Contrast (ICD-10-PCS; 2024-09-04)
PROC: 3E05317 Introduction of Other Thrombolytic into Peripheral Artery, Percutaneous Approach (ICD-10-PCS; 2024-09-04)
PROC: B41F1ZZ Fluoroscopy of Right Lower Extremity Arteries using Low Osmolar Contrast (ICD-10-PCS; 2024-09-04)
PROC: B41C1ZZ Fluoroscopy of Pelvic Arteries using Low Osmolar Contrast (ICD-10-PCS; 2024-09-04)
PROC: 067Y3DZ Dilation of Lower Vein with Intraluminal Device, Percutaneous Approach (ICD-10-PCS; 2024-09-05)
DX: T82.868A Thrombosis due to vascular prosthetic devices, implants and grafts, initial encounter (principal); D62 Acute posthemorrhagic anemia; I50.22 Chronic systolic (congestive) heart failure; L76.32 Postprocedural hematoma of skin and subcutaneous tissue following other procedure; I72.4 Aneurysm of artery of lower extremity; I70.221 Atherosclerosis of native arteries of extremities with rest pain, right leg; E78.00 Pure hypercholesterolemia, unspecified; I11.0 Hypertensive heart disease with heart failure; I25.10 Atherosclerotic heart disease of native coronary artery without angina pectoris; E11.51 Type 2 diabetes mellitus with diabetic peripheral angiopathy without gangrene; M48.061 Spinal stenosis, lumbar region without neurogenic claudication; I70.0 Atherosclerosis of aorta; F17.210 Nicotine dependence, cigarettes, uncomplicated; Y83.2 Surgical operation with anastomosis, bypass or graft as the cause of abnormal reaction of the patient, or of later complication, without mention of misadventure at the time of the procedure; K59.00 Constipation, unspecified; Y83.8 Other surgical procedures as the cause of abnormal reaction of the patient, or of later complication, without mention of misadventure at the time of the procedure; K80.20 Calculus of gallbladder without cholecystitis without obstruction; J43.9 Emphysema, unspecified; I25.2 Old myocardial infarction; Z79.01 Long term (current) use of anticoagulants; Z79.82 Long term (current) use of aspirin; Z79.84 Long term (current) use of oral hypoglycemic drugs; Z79.899 Other long term (current) drug therapy; Z95.3 Presence of xenogenic heart valve; Z95.810 Presence of automatic (implantable) cardiac defibrillator
CPT/HCPCS: 36247; 37211; 37214; 37238; 75625; 75635; 75710; 80048; 82962; 83036; 85014; 85018; 85025; 85027; 85347; 85384; 85610; 85730; 86850; 86900; 86901; 93656; 93657; 99285; C1725; C1730; C1733; C1759; C1760; C1766; C1769; C1874; C1887; C1892; C1894; J2997; Q9967

== ENCOUNTER → 2024-09-25 08:10 | Outpatient (REF) | payer MEDICARE, OTHER, SELFPAY | LOC: RAD 08:10 | PROVIDERS: ATTENDING PHYSICIAN Physician Assistant; FAMILY PHYSICIAN Family Medicine; REFERRING PHYSICIAN Surgery Vascular Surgery | DX: I72.4 Aneurysm of artery of lower extremity (principal) | CPT/HCPCS: 93922; 93925 ==

== ENCOUNTER → 2025-01-15 06:53 | Outpatient (REF) | payer MEDICARE, OTHER, SELFPAY | LOC: RAD 06:53 | PROVIDERS: ATTENDING PHYSICIAN Registered Nurse; FAMILY PHYSICIAN Family Medicine | DX: I72.4 Aneurysm of artery of lower extremity (principal) | CPT/HCPCS: 93922; 93925 ==

== ENCOUNTER 2025-01-27 07:02 | Day surgery (SDC) | payer MEDICARE, OTHER, SELFPAY ==
[2025-01-27] VITALS (17 sets, daily range): BP systolic 92–128; BP diastolic 53–69; BMI 28.4
[2025-01-27 07:45] LABS: Hematocrit 44.5 % (39.0-52.0); Hemoglobin 14.3 g/dL (13.0-18.0); Mean Corp Hgb Conc. 32.1 g/dL (33.0-37.0); Mean Corpuscular Volume 92.7 fL (80.0-94.0); Platelet Count 156 10^3/uL (130-400); Red Cell Dist. Width 13.8 % (11.5-14.5)
[2025-01-27] MEDS: NSS 500 IV (07:49)
[2025-01-27 07:52] LABS: INR 1.12; PT 14.7 Sec (11.4-14.6)
[2025-01-27 07:53] LABS: APTT 30.1 Sec (23.4-35.0)
[2025-01-27] MEDS: VENTOLIN NEBULES 2.5 MG INH (07:55)
[2025-01-27 07:58] LABS: Blood Urea Nitrogen 17 mg/dl (9-20); Calcium 8.7 mg/dl (8.4-10.2); Carbon Dioxide 27 mmol/L (22-30); Chloride 108 mmol/L (98-107); Estimated Creatinine Clearance 99 ml/min; Glucose 151 mg/dl (70-99); Potassium 4.3 mmol/L (3.5-5.1); Sodium 139 mmol/L (135-145); eGFR > 60.00
[2025-01-27 09:26] LABS: ACT-LR - POC 372 Seconds (116-155)
[2025-01-27 10:30] LABS: Glucose - Point of Care 147 mg/dl (70-99)
--- NOTE | 2025-01-27 10:40 | W.SUR.POST ---
Surgical Immediate Post Op
Note
Pre Op Diagnosis: PAD
Post Op Diagnosis: PAD
Procedure Performed: RLE angiogram and balloon angioplasty
Primary Surgeon: Phong Ovalle MD
Secondary Surgeons: Bacilio Sheikh MD PhD
Anesthesia: MAC - per anesthesia
Estimated Blood Loss: 2 cc
Fluids: Per anesthesia
Drains/Shunts: None
Specimens/Cultures: None
Doppler/Duplex/Angio (Y/N): Angio
Complications: None
Operative Findings: RLE angiogram via left EVENT SPECIALIST access. Proximal stenosis in the SFA and proximal bypass treated with shockwave balloon angioplasty + DCB x1. Distal bypass anastomotic stenosis treated with balloon angioplasty.
[2025-01-27] MEDS: NSS 1000 IV (11:52)
[2025-01-27 12:56] LABS: Glucose - Point of Care 164 mg/dl (70-99)
--- NOTE | 2025-01-27 20:58 | OR.RPT ---
Operative Report
Operative Report
Date of Operation: 01/27/2025
Pre Op Diagnosis: Threatened right lower extremity bypass
Post Op Diagnosis: Threatened right lower extremity bypass
Procedure:
1. Intravascular lithotripsy to proximal right superficial femoral artery (6 mm x 80 mm E8 Shockwave)
2. Drug-coated balloon angioplasty to right superficial femoral artery at the proximal anastomosis (6 mm x 40 mm Lutonix)
3. Balloon angioplasty of distal bypass stenosis (3.5 mm x 60 mm angioplasty balloon)
4. Diagnostic aortobiiliac arteriogram
5. Diagnostic right lower extremity arteriogram
6. Ultrasound-guided percutaneous access to the left common femoral artery
Surgeon: Phong Ovalle III, MD
O[employer] Fishing Tool Technician: Bacilio Sheikh MD PhD PGY-7
Anesthesia: Sedation with local
Fluoroscopy:
30.7 min
447 mGy
82.45 gy.cm2
Complications: None
Estimated Blood Loss: Less than 20 cc
History and Indications for Procedure: 79-year-old male with right lower extremity bypass. Velocity profile on surveillance duplex suggested a threatened bypass. I brought him to the operating room for lower extremity arteriogram and possible
endovascular intervention
Procedure in Detail: Guzman Law was correctly identified and placed supine on the operating table. After adequate induction of anesthesia the bilateral groins were prepped and draped in the usual sterile fashion. A timeout was performed with the
nursing and anesthesia staff confirming the patient's identity as well as the nature and laterality of the procedure.
The left common femoral artery was identified under ultrasound guidance. The artery was patent. The superior and inferior aspects of the femoral head were identified with radiographic guidance and marked at the skin level. The proposed puncture site
was infiltrated with local anesthesia. Under ultrasound guidance we accessed the left common femoral artery with a micropuncture needle and upsized to a 5 Fr sheath over a Bentson wire. The wire and a ShepherCrescentrating hook flush catheter were advanced into
the distal abdominal aorta and a diagnostic aorto-biiliac arteriogram was performed:
AORTO-ILIAC ARTERIOGRAM:
Aorta: Patent with no significant stenosis identified
Right common iliac artery: Patent with no significant stenosis identified.
Right external iliac artery: Patent. Mild to moderate focal calcified stenosis identified in the proximal aspect.
Left common iliac artery: Patent with no significant stenosis identified
Left external iliac artery: Mild to moderate focal stenosis
Under roadmap guidance using a Glidewire and the independenceIT hook catheter we selected the right common iliac artery followed by the external iliac artery and then the common femoral artery. A catheter was tracked up and over the aortic bifurcation
and placed in the common femoral artery. A diagnostic right lower extremity arteriogram was then performed which demonstrated the following:
RIGHT LOWER EXTREMITY:
Common femoral artery: Patent with no significant stenosis identified
Profunda femoral artery: Patent
Superficial femoral artery: Patent. Peripherally calcified. Focal high-grade stenosis in the proximal SFA at the level of the proximal anastomosis.
Popliteal artery: Occluded
Bypass: Patent with sluggish flow. Proximal anastomosis patent. No stenosis identified in the proximal or mid segments. Recurrent high-grade stenosis identified in the distal vein graft near the distal anastomosis.
Peroneal artery: Patent
ENDOVASCULAR INTERVENTION: Systemic heparin was administered. Exchanged out for a 6 Fr 45 cm sheath over a [employer] wire. Selected the bypass under roadmap guidance. The distal vein graft stenosis was crossed with a Quickcross and Glidewire. The wire
and catheter were advanced into the peroneal artery and subtraction angio confirmed proper position in the true lumen. Exchanged out for a 0.014 wire. A 3.5 mm x 60 mm angioplasty balloon was positioned in the desired location across the stenosis
in the distal vein graft. The balloon was advanced across the distal anastomosis. The balloon was inflated to nominal pressure and held in place for a 4-minute inflation. The balloon was deflated and removed over the wire. Subsequent arteriogram
demonstrated an excellent technical result with a widely patent distal vein graft and no significant residual stenosis. Brisk flow across the distal anastomosis and into the peroneal artery outflow was identified.
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 The wire was removed from the bypass and readvanced into the alturas superficial femoral artery. With the wire across the SFA stenosis we then
continued with intravascular lithotripsy. Due to the calcified nature of the superficial femoral artery disease and in an effort to modify the calcium to achieve maximum luminal gain with endovascular intervention I elected to proceed with
intravascular lithotripsy. A 6 mm x 80 mm Shockwave balloon was placed across the superficial femoral artery stenosis under roadmap guidance. Alternating rounds of lithotripsy pulse delivery at sub-nominal pressure and angioplasty at nominal
pressure was performed across the stenosis. In between rounds of pulse delivery and angioplasty the balloon was deflated and repositioned under roadmap guidance. All 400 pulses were delivered. I then followed this with a 6 mm x 40 mm Lutonix
drug-coated angioplasty balloon. The drug-coated balloon was positioned in the desired location in the superficial femoral artery spanning the proximal anastomosis under roadmap guidance. The balloon was inflated to nominal pressure and held in
place for 3 minutes. Subsequent arteriogram demonstrated an excellent technical result with a widely patent superficial femoral artery, no significant residual stenosis and brisk flow into the bypass which was significantly improved compared to
pretreatment.
COMPLETION ARTERIOGRAM: Patent superficial femoral artery. Widely patent proximal anastomosis of the bypass. Brisk flow through the bypass. Mild residual stenosis identified in the distal vein graft. Brisk flow through the distal vein graft,
across the distal anastomosis which was widely patent and into the peroneal artery outflow. The peroneal artery was patent to the ankle. The peroneal artery reconstituted the distal anterior tibial artery and distal posterior tibial artery.
Significant small vessel disease was identified in the right foot.
Satisfied with this result we concluded the procedure. The sheath tip was pulled back into the left external iliac artery. Protamine was administered. The sheath was secured in place with the plan to pull it in the recovery room.
The patient tolerated the procedure well and was taken to the recovery area in stable condition.
Attestation: I was present and responsible for the entire procedure.
Signed:
Phong Ovalle III, MD
Vascular Surgery
[facility]
== END 2025-01-27 16:10 | disposition home or self-care (01) ==
LOC: CATH 07:02
PROVIDERS: ATTENDING PHYSICIAN Surgery Vascular Surgery; OTHER PHYSICIAN Internal Medicine Cardiovascular Disease; PRIMARYCARE PHYSICIAN Family Medicine
DX: T82.858D Stenosis of other vascular prosthetic devices, implants and grafts, subsequent encounter (principal); Y83.2 Surgical operation with anastomosis, bypass or graft as the cause of abnormal reaction of the patient, or of later complication, without mention of misadventure at the time of the procedure; I77.9 Disorder of arteries and arterioles, unspecified; Z95.820 Peripheral vascular angioplasty status with implants and grafts; Z79.02 Long term (current) use of antithrombotics/antiplatelets; Z79.01 Long term (current) use of anticoagulants; Z79.899 Other long term (current) drug therapy; Z79.84 Long term (current) use of oral hypoglycemic drugs; E11.9 Type 2 diabetes mellitus without complications; J44.9 Chronic obstructive pulmonary disease, unspecified; I25.2 Old myocardial infarction; Z87.891 Personal history of nicotine dependence; I25.10 Atherosclerotic heart disease of native coronary artery without angina pectoris; Z86.0100 Personal history of colon polyps, unspecified; I11.0 Hypertensive heart disease with heart failure; I50.22 Chronic systolic (congestive) heart failure
CPT/HCPCS: C9764; 75625; 75710; 80048; 82962; 85027; 85610; 85730; 93005; 94640; C1725; C1769; C1894; C2623; Q9967

== ENCOUNTER → 2025-02-17 12:55 | Outpatient (REF) | payer MEDICARE, OTHER, SELFPAY | LOC: RAD 12:55 | PROVIDERS: ATTENDING PHYSICIAN Surgery Vascular Surgery; FAMILY PHYSICIAN Family Medicine | DX: I73.9 Peripheral vascular disease, unspecified (principal) | CPT/HCPCS: 93922; 93925 ==

== ENCOUNTER → 2025-05-25 06:50 | Outpatient (REF) | payer MEDICARE, OTHER, SELFPAY | LOC: RAD 06:50 | PROVIDERS: ATTENDING PHYSICIAN Registered Nurse; FAMILY PHYSICIAN Family Medicine | DX: I77.9 Disorder of arteries and arterioles, unspecified (principal) | CPT/HCPCS: 93922; 93925 ==